=== PATIENT | male | born 1970 | race Caucasian/White ===

== ENCOUNTER → 2019-05-08 08:13 | Outpatient (CLI) | payer OTHER, SELFPAY ==
[2019-05-08 10:29] LABS: Cholesterol 196 mg/dL (200); High Density Lipoprotein 44 mg/dL; Triglycerides 131 mg/dL; Very Low Density Lipoprotein 26 mg/dL (5-40)
[2019-05-08 10:35] LABS: Hemoglobin A1c 5.4 % (4.2-6.3)
== END ==
PROVIDERS: Family Provider Family Medicine; PCP Family Medicine; Referring Provider Family Medicine; Visit Provider Family Medicine
DX: Z00.00 Encounter for general adult medical examination without abnormal findings (principal)
CPT/HCPCS: 36415; 80061; 83036

== ENCOUNTER → 2021-06-10 17:14 | Outpatient (CLI) | payer OTHER, SELFPAY ==
--- NOTE | 2021-06-10 17:18 | RAD_ITS ---
STUDY: X-RAY - RIGHT WRIST REASON FOR EXAM: Male, 50 years old. Pain in right wrist laterally into thumb. No known injury. TECHNIQUE: 3 view(s) of the wrist were obtained. COMPARISON: None. FINDINGS: A small corticated ossicle is present on the ulnar side of the radial articular surface which could be related to old trauma or a developmental apophysis. No demonstrated acute fracture. Normal visualized distal radius and ulna. Normal radiocarpal articulation. Normal distal radioulnar articulation. Normal carpal bones. Normal carpal articulations. Normal carpometacarpal articulation of the thumb. Normal second through fifth carpometacarpal articulations. Normal visualized metacarpal bones. The soft tissue structures are unremarkable. RAD/Wrist min 3 Views IMPRESSION: 1. A small corticated ossicle is present on the ulnar side of the radial articular surface which could be related to old trauma or a developmental apophysis. No demonstrated acute fracture Electronically Signed: Mele Cordova MD at 21:53 EST , Service support ,
== END ==
PROVIDERS: PCP Family Medicine; Referring Provider Family Medicine; Visit Provider Family Medicine
DX: M25.539 Pain in unspecified wrist (principal)
CPT/HCPCS: 73110

== ENCOUNTER → 2022-07-15 | Outpatient (CLI) | payer OTHER, SELFPAY ==
[2022-07-15 11:07] LABS: Anion Gap 8 (5-15); BUN 20 mg/dL (7-18); BUN/Creat Ratio 19.6 RATIO (10-20); Chloride 107 mmol/L (98-107); Cholesterol 227 mg/dL (200); Creatinine, Serum 1.02 mg/dL (0.70-1.30); EST Glomerular Filtration Rate 82 mL/min (>60); Est Glom Filt Rate - Afr Amer 99 mL/min (>60); Glucose 105 mg/dL (74-106); High Density Lipoprotein 42 mg/dL; PSA,Total - Annual Screen 0.87 ng/mL (0.00-4.00); Potassium 4.5 mmol/L (3.5-5.1); Sodium Level 139 mmol/L (136-145); Triglycerides 127 mg/dL; Very Low Density Lipoprotein 25 mg/dL (5-40)
== END | disposition home or self-care (01) ==
LOC: MFPLAB 08:32
PROVIDERS: PCP Family Medicine; Visit Provider Family Medicine
DX: E78.5 Hyperlipidemia, unspecified (principal); R73.01 Impaired fasting glucose; R53.83 Other fatigue; Z12.5 Encounter for screening for malignant neoplasm of prostate
CPT/HCPCS: 36415; 80048; 80061; 84153; 84403; G0103

== ENCOUNTER → 2023-05-18 | Outpatient (CLI) | payer OTHER, SELFPAY ==
[2023-05-18 12:48] LABS: Uric Acid 8.8 mg/dL (3.5-7.2)
[2023-05-18 13:12] LABS: Hemoglobin A1c 5.7 % (3.8-5.6)
[2023-05-23 14:07] LABS: Testosterone, % Free 3.36 % (1.50-4.20); Testosterone, Free 6.05 ng/dL (5.00-21.00); Testosterone, Total 180 ng/dL (264-916)
== END | disposition home or self-care (01) ==
LOC: MFPLAB 09:40
PROVIDERS: PCP Family Medicine; Visit Provider Family Medicine
DX: R79.89 Other specified abnormal findings of blood chemistry (principal); R73.01 Impaired fasting glucose; M10.9 Gout, unspecified
CPT/HCPCS: 36415; 83036; 84402; 84403; 84550

== ENCOUNTER → 2023-06-17 | Outpatient (CLI) | payer OTHER, SELFPAY ==
[2023-06-17 10:28] LABS: Uric Acid 7.3 mg/dL (3.5-7.2)
== END | disposition home or self-care (01) ==
LOC: MFPLAB 09:03
PROVIDERS: PCP Family Medicine; Visit Provider Family Medicine
DX: R79.89 Other specified abnormal findings of blood chemistry (principal); M10.9 Gout, unspecified
CPT/HCPCS: 36415; 84403; 84550

== ENCOUNTER → 2023-07-06 | Outpatient (CLI) | payer OTHER, SELFPAY ==
--- OUTSIDE RECORDS SUMMARY | 2023-07-06 12:01 | XMS RPT_ITS | CCD ---
Author Name Unknown Address [id number] [place] [address] Organization [facility] Results Test Name Value Interpretation Reference Range Facil ity Vital Signs Date Time Vital Sign Value Performing Clinician Facchantelle lity 08-17-2021 09:49-0500 Diastolic Blood Pressure NBP [address] DANIELLE MERCADO MD [facility] 08-17-2021 09:49-0500 Heart rate 62 /min DR DANIELLE MERCADO MD [facility] 08-17-2021 09:49-0500 Systolic Blood Pressure NBP [address] DANIELLE MERCADO MD [facility] 08-17-2021 09:40-0500 Diastolic Blood Pressure NBP [address] DANIELLE MERCADO MD [facility] 08-17-2021 09:40-0500 Heart rate 69 /min DR DANIELLE MERCADO MD [facility] 08-17-2021 09:40-0500 Systolic Blood Pressure NBP [address] DANIELLE MERCADO MD [facility] 08-17-2021 09:33-0500 Diastolic Blood Pressure NBP [address] DANIELLE MERCADO MD [facility] 08-17-2021 09:33-0500 Heart rate 67 /min DR DANIELLE MERCADO MD [facility] 08-17-2021 09:33-0500 Systolic Blood Pressure NBP [address] DANIELLE MERCADO MD [facility] 08-17-2021 09:29-0500 Body temperature 96.62 [degF] DR DANIELLE MERCADO MD [facility] 08-17-2021 09:25-0500 Respiratory rate 17 /min DR DANIELLE MERCADO MD [facility] 08-17-2021 09:20-0500 Respiratory rate 18 /min DR DANIELLE MERCADO MD [facility] 08-17-2021 09:15-0500 Respiratory rate 18 /min DR DANIELLE MERCADO MD [facility] 08-17-2021 08:54-0500 Body height 175.[address] DANIELLE MERCADO MD [facility] 08-17-2021 08:54-0500 Body temperature 98.06 [degF] DR DANIELLE MERCADO MD [facility] 08-17-2021 08:54-0500 Body weight 131.[address] DANIELLE MERCADO MD [facility] 08-17-2021 08:54-0500 diastolic 88 mm[Hg] DR DANIELLE MERCADO MD [facility] 08-17-2021 08:54-0500 Heart rate 65 /min DR DANIELLE MERCADO MD [facility] 08-17-2021 08:54-0500 systolic 137 mm[Hg] DR DANIELLE MERCADO MD [facility] Encounters Encounter Date Encounter Type Care Provider Facility Start: 08-17-2021 End: 08-17-[address] DANIELLE MERCADO MD [facility] Procedures Date Procedure Procedure Detail Performing Clinician Arthroscopy of shoulder DR Kamryn MERCADO MD Colonoscopy DR DANIELLE BAEZ MD Social History Date Type Detail Facility Start: 08-17-2021 Never smoked t obacco (finding) [facility] Sex Assigned At Male [facility] Hospital Discharge instructions 08-17-2021 Note Date & Type Note Facility 08-17-2021 Hospital Discharg e instructions Patient Education 08/17/2021 09:39:17 Colon Biopsy, Care After Colon Biopsy, Care After This sheet gives you information about how to care for yourself after your procedure. Your health care provider may also give you more specific instructions. If you have problems or questions, contact your health care provider. What can I expect after the procedure? After the procedure, it is common to have: A small amount of blood in your stool for 24 hours after the procedure. Some gas. Mild cramping or bloating in your abdomen. Follow these instructions at home: General instructions For the first 24 hours after the procedure: ?Do not drive or use machinery. ?Do not sign important documents. ?Do not drink alcohol. ?Do your regular daily activities at a slower pace than normal. ?Eat soft, xixp-tt-whxinb foods. ?Rest often. Take brbn-rxo-xgdhchj or prescription medicines only as told by your health care provider. Keep all follow-up visits as told by your health care provider. This is important. Relieving cramping and bloating Try walking around when you have cramps or feel bloated. Put heat on your abdomen as told by your health care provider. Use a heat source that your health care provider recommends, such as a moist heat pack or a heating pad. ?Place a towel between your skin and the heat source. ?Leave the heat on for 20 30 minutes. ?Remove the heat if your skin turns bright red. This is especially important if you are unable to feel pain, heat, or cold. You may have a greater risk of getting burned. Eating and drinking Drink enough fluid to keep your urine pale yellow. Return to your normal diet as instructed by your health care provider. Avoid heavy or fried foods that are hard to digest. Avoid drinking alcohol for as long as told by your health care provider. Contact a health care provider if: You have blood in your stool 2 3 days after the procedure. Get help right away if: You have more than a small spotting of blood in your stool. You pass large blood clots in your stool. Your abdomen is swollen. You have nausea or vomiting. You have a fever. You have increasing abdominal pain that is not relieved with medicine. Summary After the procedure, it is common to have mild cramping and bloating in the abdomen. Do not drive for 24 hours after the procedure. Try walking around when you have cramps or feel bloated. This information is not intended to replace advice given to you by your health care provider. Make sure you discuss any questions you have with your health care provider. Document Released: 11/22/2017 Document Revised: 05/26/2018 Document Reviewed: 11/22/2017 [employer] Patient Education 2020 [employer] Credit Card To Get Approved For. 08/17/2021 09:39:09 Colon Polyps Colon Polyps Polyps are tissue growths inside the body. Polyps can grow in many places, including the large intestine (colon). A polyp may be a round bump or a mushroom-shaped growth. You could have one polyp or several. Most colon polyps are noncancerous (benign). However, some colon polyps can become cancerous over time. Finding and removing the polyps early can help prevent this. What are the causes? The exact cause of colon polyps is not known. What increases the risk? You are more likely to develop this condition if you: Have a family history of colon cancer or colon polyps. Are older than 50 or older than 45 if you are . Have inflammatory bowel disease, such as ulcerative colitis or Crohn's disease. Have certain hereditary conditions, such as: ?Familial adenomatous polyposis. ?Conway syndrome. ?Turcot syndrome. ?Peutz Jeghers syndrome. Are overweight. Smoke cigarettes. Do not get enough exercise. Drink too much alcohol. Eat a diet that is high in fat and red meat and low in fiber. Had childhood cancer that was treated with abdominal radiation. What are the signs or symptoms? Most polyps do not cause symptoms. If you have symptoms, they may include: Blood coming from your rectum when having a bowel movement. Blood in your stool. The stool may look dark red or black. Abdominal pain. A change in bowel habits, such as constipation or diarrhea. How is this diagnosed? This condition is diagnosed with a colonoscopy. This is a procedure in which a lighted, flexible scope is inserted into the anus and then passed into the colon to examine the area. Polyps are sometimes found when a colonoscopy is done as part of routine cancer screening tests. How is this treated? Treatment for this condition involves removing any polyps that are found. Most polyps can be removed during a colonoscopy. Those polyps will then be tested for cancer. Additional treatment may be needed depending on the results of testing. Follow these instructions at home: Lifestyle Maintain a healthy weight, or lose weight if recommended by your health care provider. Exercise every day or as told by your health care provider. Do not use any products that contain nicotine or tobacco, such as cigarettes and e-cigarettes. If you need help quitting, ask your health care provider. If you drink alcohol, limit how much you have: ?0 1 drink a day for women. ? 0 2 drinks a day for men. Be aware of how much alcohol is in your drink. In the [place] one drink equals one 12 oz bottle of beer (355 mL), one 5 oz glass of wine (148 mL), or one 1 oz shot of hard liquor (44 mL). Eating and drinking Eat foods that are high in fiber, such as fruits, vegetables, and whole grains. Eat foods that are high in calcium and vitamin D, such as milk, cheese, yogurt, eggs, liver, fish, and broccoli. Limit foods that are high in fat, such as fried foods and desserts. Limit the amount of red meat and processed meat you eat, such as hot dogs, sausage, flores, and lunch meats. General instructions Keep all follow-up visits as told by your health care provider. This is important. ?This includes having regularly scheduled colonoscopies. ?Talk to your health care provider about when you need a colonoscopy. Contact a health care provider if: You have new or worsening bleeding during a bowel movement. You have new or increased blood in your stool. You have a change in bowel habits. You lose weight for no known reason. Summary Polyps are tissue growths inside the body. Polyps can grow in many places, including the colon. Most colon polyps are noncancerous (benign), but some can become cancerous over time. This condition is diagnosed with a colonoscopy. Treatment for this condition involves removing any polyps that are found. Most polyps can be removed during a colonoscopy. This information is not intended to replace advice given to you by your health care provider. Make sure you discuss any questions you have with your health care provider. Document Released: 03/09/2005 Document Revised: 09/28/2018 Document Reviewed: 09/28/2018 [employer] Patient Education 2020 Easiest Credit Card To Get Approved For. 08/17/2021 09:39:01 Monitored Anesthesia Care, Care After Monitored Anesthesia Care, Care After These instructions provide you with information about caring for yourself after your procedure. Your health care provider may also give you more specific instructions. Your treatment has been planned according to current medical practices, but problems sometimes occur. Call your health care provider if you have any problems or questions after your procedure. What can I expect after the procedure? After your procedure, you may: Feel sleepy for several hours. Feel clumsy and have poor balance for several hours. Feel forgetful about what happened after the procedure. Have poor judgment for several hours. Feel nauseous or vomit. Have a sore throat if you had a breathing tube during the procedure. Follow these instructions at home: For at least 24 hours after the procedure: Have a responsible adult stay with you. It is important to have someone help care for you until you are awake and alert. Rest as needed. Do not: ?Participate in activities in which you could fall or become injured. ?Drive. ?Use heavy machinery. ?Drink alcohol. ?Take sleeping pills or medicines that cause drowsiness. ?Make important decisions or sign legal documents. ?Take care of children on your own. Eating and drinking Follow the diet that is recommended by your health care provider. If you vomit, drink water, juice, or soup when you can drink without vomiting. Make sure you have little or no nausea before eating solid foods. General instructions Take wcbj-ade-zzjlxkf and prescription medicines only as told by your health care provider. If you have sleep apnea, surgery and certain medicines can increase your risk for breathing problems. Follow instructions from your health care provider about wearing your sleep device: ?Anytime you are sleeping, including during daytime naps. ?While taking prescription pain medicines, sleeping medicines, or medicines that make you drowsy. If you smoke, do not smoke without supervision. Keep all follow-up visits as told by your health care provider. This is important. Contact a health care provider if: You keep feeling nauseous or you keep vomiting. You feel light-headed. You develop a rash. You have a fever. Get help right away if: You have trouble breathing. Summary For several hours after your procedure, you may feel sleepy and have poor judgment. Have a responsible adult stay with you for at least 24 hours or until you are awake and alert. This information is not intended to replace advice given to you by your health care provider. Make sure you discuss any questions you have with your health care provider. Document Released: 10/03/2016 Document Revised: 09/11/2018 Document Reviewed: 10/03/2016 [employer] Patient Education 2020 Easiest Credit Card To Get Approved For. 08/17/2021 09:38:54 Colonoscopy, Adult, Care After, Cwyg-fr-Urci Colonoscopy, Adult, Care After This sheet gives you information about how to care for yourself after your procedure. Your doctor may also give you more specific instructions. If you have problems or questions, call your doctor. What can I expect after the procedure? After the procedure, it is common to have: A small amount of blood in your poop for 24 hours. Some gas. Mild cramping or bloating in your belly. Follow these instructions at home: General instructions For the first 24 hours after the procedure: ?Do not drive or use machinery. ?Do not sign important documents. ?Do not drink alcohol. ?Do your daily activities more slowly than normal. ?Eat foods that are soft and easy to digest. Take qfal-iqw-zbjuqpe or prescription medicines only as told by your doctor. To help cramping and bloating: Try walking around. Put heat on your belly (abdomen) as told by your doctor. Use a heat source that your doctor recommends, such as a moist heat pack or a heating pad. ?Put a towel between your skin and the heat source. ?Leave the heat on for 20 30 minutes. ?Remove the heat if your skin turns bright red. This is especially important if you cannot feel pain, heat, or cold. You can get burned. Eating and drinking Drink enough fluid to keep your pee (urine) clear or pale yellow. Return to your normal diet as told by your doctor. Avoid heavy or fried foods that are hard to digest. Avoid drinking alcohol for as long as told by your doctor. Contact a doctor if: You have blood in your poop (stool) 2 3 days after the procedure. Get help right away if: You have more than a small amount of blood in your poop. You see large clumps of tissue (blood clots) in your poop. Your belly is swollen. You feel sick to your stomach (nauseous). You throw up (vomit). You have a fever. You have belly pain that gets worse, and medicine does not help your pain. Summary After the procedure, it is common to have a small amount of blood in your poop. You may also have mild cramping and bloating in your belly. For the first 24 hours after the procedure, do not drive or use machinery, do not sign important documents, and do not drink alcohol. Get help right away if you have a lot of blood in your poop, feel sick to your stomach, have a fever, or have more belly pain. This information is not intended to replace advice given to you by your health care provider. Make sure you discuss any questions you have with your health care provider. Document Released: 07/16/2011 Document Revised: 04/13/2018 Document Reviewed: 03/07/2017 [employer] Patient Education 2019 [email or web address] Follow Up Care 07/21/2021 16:25:17 With:DANIELLE MERCADO MD Address: [phone] When: Unknown Comments:SPECIMENS WERE SENT TO THE LAB. YOU WILL GET THESE RESULTS IN 7-10 DAYS. HE WILL CALL YOU OR YOU WILL GET A LETTER IN THE MAIL WITH THE RESULTS. CALL DR MERCADO'S OFFICE WITH ANY QUESTIONS. GO TO THE EMERGENCY ROOM WITH ANY URGENT MATTERS. [facility] Evaluation + Plan note Note Date & Type Note Facility Evaluation + Plan note No data available for this section [facility] Summary Purpose Family History No Family History Records Found Advance Directives No Advanced Directives Records Found Additional Source Comments (unrecognized sect ion and content) No Status Records Found INFORMATION SOURCE (unrecogn ized section and content) FOR RECORDS PERTAINING TO PATIENTS WHO ARE OR HAVE BEEN ENROLLED IN A CHEMICAL DEPENDENCY/SUBSTANCEABUSE PROGRAM, SOME INFORMATION MAY BE OMITTED. This clinical summary was aggregated from multiple sources. Caution should be exercised in using it in the provision of clinical care. This summary normalizes information from multiple sources, and as a consequence, information in this document may materially change the coding, format and clinical context of patient data. In addition, data may be omitted in some cases. CLINICAL DECISIONS SHOULD BE BASED ON THE PRIMARY CLINICAL RECORDS. [employer] provides no warranty or guarantee of the accuracy or completeness of information in this document.
[2023-07-06 15:36] LABS: Absolute Lymphocyte Count 1.95 X10^3/uL (0.83-4.51); Absolute Neutrophil Count 5.9 X10^3/uL (2.0-7.7); Basophil# 0.07 X10^3/uL; Basophil% 0.8 % (0-1); Eosinophil# 0.13 X10^3/uL; Eosinophils% 1.5 % (0-5); Hematocrit 50.4 % (40-54); Hemoglobin 15.6 g/dL (13.0-16.5); Lymphocyte # 1.95 X10^3/ul (0.83-4.51); Mean Corpuscular Hgb 28.2 pg (27.0-32.0); Mean Platelet Vol. 10.2 fl (6.2-12.0); Monocyte# 0.77 X10^3/uL; Monocyte% 8.7 % (0-10); NRBC Flagged by Analyzer 0 % (0-5); Neutrophil # 5.88 X10^3/uL (2.7-7.7); Neutrophil % 66.4 % (47-70); Platelet Count 359 K/mm3 (150-450); RBC Distribution Width SD 43.1 fl (35.1-43.9); Red Blood Count 5.54 M/mm3 (4.6-6.2); White Blood Count 8.9 K/mm3 (4.4-11.0)
[2023-07-06 16:02] LABS: Anion Gap 6 (5-15); BUN 12 mg/dL (7-18); BUN/Creat Ratio 10.7 RATIO (10-20); Chloride 108 mmol/L (98-107); Creatinine, Serum 1.12 mg/dL (0.70-1.30); EST Glomerular Filtration Rate 73 mL/min (>60); Est Glom Filt Rate - Afr Amer 89 mL/min (>60); Glucose 94 mg/dL (74-106); Potassium 4.3 mmol/L (3.5-5.1); Sodium Level 139 mmol/L (136-145); Uric Acid 4.7 mg/dL (3.5-7.2)
== END | disposition home or self-care (01) ==
LOC: MFPLAB 11:32
PROVIDERS: Family Medicine; PCP Family Medicine; Visit Provider Family Medicine
DX: M10.9 Gout, unspecified (principal)
CPT/HCPCS: 36415; 80048; 84550; 85025; 86140

== ENCOUNTER → 2023-07-11 | Outpatient (CLI) | payer OTHER, SELFPAY ==
--- NOTE | 2023-07-11 12:47 | RAD_ITS ---
STUDY: X-RAY - RIGHT WRIST REASON FOR EXAM: Male, 53 years old. pain, loss motion. no injury TECHNIQUE: 3 view(s) of the wrist were obtained. COMPARISON: None. FINDINGS: Normal visualized distal radius and ulna. Normal radiocarpal articulation. Normal distal radioulnar articulation. Normal carpal bones. Normal carpal articulations. Normal carpometacarpal articulation of the thumb. Normal second through fifth carpometacarpal articulations. Normal visualized metacarpal bones. The soft tissue structures are unremarkable. RAD/Wrist min 3 Views IMPRESSION: Normal x-ray examination of the wrist. Electronically Signed: Alfonso Vargas MD at 17:55 EST ,
--- NOTE | 2023-07-11 12:47 | RAD_ITS ---
STUDY: X-RAY LEFT FOOT, GREAT TOE REASON FOR EXAM: Male, 53 years old. pain, swelling TECHNIQUE: 3 view(s) of the toe were obtained. COMPARISON: None. FINDINGS: Normal visualized metatarsus. Normal metatarsophalangeal (M.T.P) joint. Normal interphalangeal joints. Normal phalanges. Narrowed interphalangeal joints with mild spurring. The soft tissue structures are unremarkable. RAD/Toe(s) Min 2 Views IMPRESSION: Degenerative changes of the DIP joint of the great toe. No acute fracture or other significant bony pathology. Electronically Signed: Alfonso Vargas MD at 17:57 EST ,
== END | disposition home or self-care (01) ==
LOC: MTRAD 12:44
PROVIDERS: PCP Family Medicine; Referring Provider Family Medicine; Visit Provider Family Medicine
DX: M25.531 Pain in right wrist (principal); M79.675 Pain in left toe(s)
CPT/HCPCS: 73110; 73660

== ENCOUNTER → 2023-07-13 | Outpatient (CLI) | payer OTHER, SELFPAY ==
--- OUTSIDE RECORDS SUMMARY | 2023-07-13 15:40 | XMS RPT_ITS | CCD ---
Author Name Unknown Address [address] [place] [address] Organization [facility] Results Test Name Value Interpretation Reference Range Facil ity Vital Signs Date Time Vital Sign Value Performing Clinician Facchantelle lity 08-17-2021 09:49-0500 Diastolic Blood Pressure NBP [address] DANIELLE MERCADO MD [facility] 08-17-2021 09:49-0500 Heart rate 62 /min DR DANIELLE MERCADO MD [facility] 08-17-2021 09:49-0500 Systolic Blood Pressure NBP [address] DANIELLE MERCADO MD [facility] 08-17-2021 09:40-0500 Diastolic Blood Pressure NBP [address] DANIELLE MERCADO MD [facility] 08-17-2021 09:40-0500 Heart rate 69 /min DR DANIELLE MERCADO MD [facility] 08-17-2021 09:40-0500 Systolic Blood Pressure NBP [address] DANIELLE MERCADO MD [facility] 08-17-2021 09:33-0500 Diastolic Blood Pressure NBP [address] DANIELLE MERCADO MD [facility] 08-17-2021 09:33-0500 Heart rate 67 /min DR DANIELLE MERCADO MD [facility] 08-17-2021 09:33-0500 Systolic Blood Pressure NBP [address] DANIELLE MERCADO MD [facility] 08-17-2021 09:29-0500 Body temperature 96.62 [degF] DR DANIELLE MERCADO MD [facility] 08-17-2021 09:25-0500 Respiratory rate 17 /min DR DANIELLE MERCADO MD [facility] 08-17-2021 09:20-0500 Respiratory rate 18 /min DR DANIELLE MERCADO MD [facility] 08-17-2021 09:15-0500 Respiratory rate 18 /min DR DANIELLE MERCADO MD [facility] 08-17-2021 08:54-0500 Body height 175.[address] DANIELLE MERCADO MD [facility] 08-17-2021 08:54-0500 Body temperature 98.06 [degF] DR DANIELLE MERCADO MD [facility] 08-17-2021 08:54-0500 Body weight 131.[address] DANIELLE MERCADO MD [facility] 08-17-2021 08:54-0500 diastolic 88 mm[Hg] DR DANIELLE MERCADO MD [facility] 08-17-2021 08:54-0500 Heart rate 65 /min DR DANIELLE MERCADO MD [facility] 08-17-2021 08:54-0500 systolic 137 mm[Hg] DR DANIELLE MERCADO MD [facility] Encounters Encounter Date Encounter Type Care Provider Facility Start: 08-17-2021 End: 08-17-[address] DANIELLE MERCADO MD [facility] Procedures Date Procedure Procedure Detail Performing Clinician Arthroscopy of shoulder DR Kamryn MERCADO MD Colonoscopy DR DANIELLE BAEZ MD Social History Date Type Detail Facility Start: 08-17-2021 Never smoked t obacco (finding) [facility] Sex Assigned At Male [facility] Discharge instructions 08-17-2021 Note Date & [...] a slower pace than normal. ?Eat soft, iuoj-oq-ztqkwc foods. ?Rest often. Take figs-dgn-pnroknl or prescription medicines only as told by [...] 11/22/2017 Document Revised: 05/26/2018 Document Reviewed: 11/22/2017 [employer] Patient Education 2020 [email or web address] 08/17/2021 09:39:09 Colon Polyps Colon Polyps Polyps [...] 03/09/2005 Document Revised: 09/28/2018 Document Reviewed: 09/28/2018 [employer] Patient Education 2020 [email or web address]. 08/17/2021 09:39:01 Monitored Anesthesia Care, Care After [...] before eating solid foods. General instructions Take nvvc-vni-jnhkojm and prescription medicines only as told by [...] 10/03/2016 Document Revised: 09/11/2018 Document Reviewed: 10/03/2016 [employer] Patient Education 2020 [email or web address]. 08/17/2021 09:38:54 Colonoscopy, Adult, Care After, Mcto-il-Xrav Colonoscopy, Adult, Care After This sheet gives [...] are soft and easy to digest. Take oevc-ckb-dsoehtr or prescription medicines only as told by [...] 07/16/2011 Document Revised: 04/13/2018 Document Reviewed: 03/07/2017 [employer] Patient Education 2019 [employer] Follow Up Care 07/21/2021 16:25:17 With:DANIELLE MERCADO MD Address: [phone] When: Unknown Comments:SPECIMENS WERE SENT TO THE LAB. YOU WILL GET THESE RESULTS IN 7-10 DAYS. HE WILL CALL YOU OR YOU WILL GET A LETTER IN THE MAIL WITH THE RESULTS. CALL DR MERCADO'S OFFICE WITH ANY QUESTIONS. GO TO THE EMERGENCY ROOM WITH ANY URGENT MATTERS. [facility] Evaluation + Plan note Note Date & Type Note Facility Evaluation + Plan note No data available for this section [facility] Summary Purpose Family History No Family History [...] BE BASED ON THE PRIMARY CLINICAL RECORDS. [employer] provides no warranty or guarantee of the accuracy or completeness of information in this document.
[2023-07-13 18:04] LABS: Erythrocyte Sedimentation Rate 23 mm/hr (0-20)
== END | disposition home or self-care (01) ==
LOC: MFPLAB 15:17
PROVIDERS: PCP Family Medicine; Visit Provider Family Medicine
DX: M10.9 Gout, unspecified (principal)
CPT/HCPCS: 36415; 85652; 86140

== ENCOUNTER → 2023-11-07 | Outpatient (CLI) | payer OTHER, SELFPAY ==
[2023-11-07 18:18] LABS: CRP 3.14 mg/L (0.0-3.0); Uric Acid 7.5 mg/dL (3.5-7.2)
== END | disposition home or self-care (01) ==
LOC: MFPLAB 15:33
PROVIDERS: PCP Family Medicine; Visit Provider Family Medicine
DX: M10.9 Gout, unspecified (principal); R79.89 Other specified abnormal findings of blood chemistry
CPT/HCPCS: 36415; 84403; 84550; 86140

== ENCOUNTER → 2023-12-19 | Outpatient (CLI) | payer OTHER, SELFPAY | END | disposition home or self-care (01) | LOC: MFPLAB 14:56 | PROVIDERS: PCP Family Medicine; Visit Provider Family Medicine | DX: R79.89 Other specified abnormal findings of blood chemistry (principal) | CPT/HCPCS: 36415; 84403 ==

== ENCOUNTER → 2024-01-27 | Outpatient (CLI) | payer OTHER, SELFPAY ==
[2024-02-01 13:08] LABS: Testosterone, % Free 4.43 % (1.50-4.20); Testosterone, Free 18.87 ng/dL (5.00-21.00); Testosterone, Total 426 ng/dL (264-916)
== END | disposition home or self-care (01) ==
LOC: MFPLAB 15:20
PROVIDERS: PCP Family Medicine; Visit Provider Family Medicine
DX: R79.89 Other specified abnormal findings of blood chemistry (principal)
CPT/HCPCS: 36415; 84402; 84403

== ENCOUNTER → 2024-06-06 | Outpatient (CLI) | payer OTHER, SELFPAY ==
--- NOTE | 2024-06-06 09:58 | VDLE_ITS ---
Reason For Study: Right leg pain RIGHT LEFT GSV is normal. CFV is compressible, spontaneous, phasic, CFV is compressible, spontaneous, phasic, competent, and demonstrates normal competent and demonstrates normal augmentation. augmentation. FV is compressible, spontaneous, phasic, competent and demonstrates normal augmentation. POP V is compressible, spontaneous, phasic, competent and demonstrates normal augmentation. T/P Trunk is compressible. PTV is compressible. RT PerV is compressible. Procedure This is a venous duplex using B-mode, color flow and spectral Doppler. Exam performed in department. A preliminary report was called and/or faxed to Dr. Lim. VL/Venous Duplex US, Unilateral Interpretation Summary Deep veins of the right lower extremity are patent and compressible segmentally . There is no evidence of right lower extremity deep vein thrombosis. The right great sapheno us vein appears patent and compressible segmentally. Ordering Physician: Rufino Sheldon Referring Physician: Rufino Sheldon Performed By: Ashley Silva RVT
== END | disposition home or self-care (01) ==
LOC: CVS 09:57
PROVIDERS: PCP Family Medicine; Referring Provider Family Medicine; Visit Provider Family Medicine
DX: M79.604 Pain in right leg (principal)
CPT/HCPCS: 93971

== ENCOUNTER → 2024-06-11 | Outpatient (CLI) | payer OTHER, SELFPAY ==
[2024-06-11 17:44] LABS: Hemoglobin 14.3 g/dL (13.0-16.5); Mean Corp Hgb Conc 31.8 g/dL (32-36); Mean Corpuscular Hgb 27.8 pg (27.0-32.0); Mean Corpuscular Volume 87.4 fL (80-94); Mean Platelet Vol. 9.8 fl (6.2-12.0); Platelet Count 322 K/mm3 (150-450); RBC Distribution Width CV 13.1 % (11.6-14.6); RBC Distribution Width SD 41.7 fl (35.1-43.9); Red Blood Count 5.15 M/mm3 (4.6-6.2); White Blood Count 8.9 K/mm3 (4.4-11.0)
[2024-06-11 18:49] LABS: ALB/GLOB Ratio 1.1 RATIO (0.9-2.4); AST(SGOT) 19 U/L (15-37); Alanine Aminotransfer ALT/SGPT 35 U/L (16-61); Albumin, Serum 3.8 g/dL (3.2-5.0); Alkaline Phosphatase 42 U/L (45-117); Anion Gap 6 (5-15); BUN 22 mg/dL (7-18); Calcium,Total 9.1 mg/dL (8.5-10.1); Chloride 106 mmol/L (98-107); Cholesterol 199 mg/dL (200); Creatinine, Serum 1.05 mg/dL (0.70-1.30); EST Glomerular Filtration Rate 79 mL/min (>60); Est Glom Filt Rate - Afr Amer 95 mL/min (>60); Globulin 3.5 g/dL (2.2-4.2); Glucose 91 mg/dL (74-106); High Density Lipoprotein 48 mg/dL; Potassium 3.9 mmol/L (3.5-5.1); Protein, Total 7.3 g/dL (6.4-8.2); Sodium Level 137 mmol/L (136-145); T4 Free Direct 0.96 ng/dL (0.76-1.46); Triglycerides 135 mg/dL; Very Low Density Lipoprotein 27 mg/dL (5-40)
== END | disposition home or self-care (01) ==
LOC: MFPLAB 16:29
PROVIDERS: PCP Family Medicine; Referring Provider Family Medicine; Visit Provider Family Medicine
DX: R79.89 Other specified abnormal findings of blood chemistry (principal); R73.01 Impaired fasting glucose; E04.9 Nontoxic goiter, unspecified
CPT/HCPCS: 36415; 80053; 80061; 84403; 84439; 84443; 85027

== ENCOUNTER → 2025-01-28 | Outpatient (CLI) | payer OTHER, SELFPAY ==
[2025-01-28 17:43] LABS: Hematocrit 43.8 % (40-54); Hemoglobin 14.5 g/dL (13.0-16.5); Mean Corp Hgb Conc 33.1 g/dL (32-36); Mean Corpuscular Volume 88.7 fL (80-94); Mean Platelet Vol. 10.3 fl (6.2-12.0); Platelet Count 300 K/mm3 (150-450); RBC Distribution Width CV 12.7 % (11.6-14.6); RBC Distribution Width SD 41.1 fl (35.1-43.9); Red Blood Count 4.94 M/mm3 (4.6-6.2); White Blood Count 9.0 K/mm3 (4.4-11.0)
[2025-01-28 18:14] LABS: AST(SGOT) 21 U/L (<=37); Alanine Aminotransfer ALT/SGPT 28 U/L (<=46); Albumin, Serum 4.5 g/dL (3.5-5.0); Alkaline Phosphatase 39 U/L (40-129); Anion Gap 12 (5-15); BUN 14 mg/dL (4-19); BUN/Creat Ratio 13.8 RATIO (10-20); Calcium,Total 8.9 mg/dL (7.6-11.0); Carbon Dioxide 22.9 mmol/L (21.0-32.0); Chloride 104 mmol/L (98-108); Globulin 2.3 g/dL (2.2-4.2); Glucose 92 mg/dL (70-99); Potassium 4.1 mmol/L (3.3-5.1)
--- OUTSIDE RECORDS SUMMARY | 2025-01-28 22:57 | XMS RPT_ITS | CCD ---
Author Organization [facility] Care Team Providers Care Shank Skinner Name Role Phone Rufino Sheldon Primary Care Unavailable Monalisa, Rufino Attending Unavailable Monalisa, Chanceer Referring Unavailable Monalisa, Rufino Primary Care Unavailable Assessment, Health Risk Attending Unavaila ble Rufino Sheldon Primary Care Unavailable Monalisa, Chanceer Attending Unavailable Monalisa, Christopher Primary Care Unavailable Monalisa, Christopher Attending Unavailable Monalisa, Christopher Primary Care Unavailable Jean Carlos Moore Attending Unavailable Monalisa, Rufino Referring Unavailable Monalisa, Rufino Primary Care Unavailable Monalisa, Rufino Attending Unavailable Monalisa, Christopher Referring Unavailable Monalisa, Christopher Primary Care Unavailable Monalisa, Chanceer Attending Unavailable Unavailable Primary Care Provider Unavailabl e BEAN ROSAS Attending Unavailable ALISON, BEAN Attending Unavailable ALISON, BEAN Attending Unavailable SELF Referring Unavailable ALISON, BEAN Attending Unavailable SELF Referring Unavailable ALISON, BEAN Referring Unavailable SELF Referring Unavailable ALISON, BEAN Attending Unavailable SELF Referring Unavailable ALISON, BEAN Attending Unavailable Medications Current Medications Medication Drug Class(es) Dates Sig (Normalized) Sig (Original) colchicine 0.6 mg oral tablet (13 sources) Start: 08-27-2024 End: 02-23-2025 take 1 tablet by mouth once daily colchicine 0.6 mg tablet Take 1 tablet by mouth once daily. 30 tablet 5 08/27/2024 02/23/2025 Active enalapril maleate 5 mg oral tablet (8 sources) Angiotensin Converting Enzyme Inhibitor Start: 12-04-2024 End: 06-02-2025 take 2 tablets by mouth once daily enalapril (VASOTEC) 5 mg tablet Take 2 tablets by mouth once daily. 30 tablet 1 12/04/2024 06/02/2025 Active Start: 11-08-2024 End: 05-07-2025 take 1 tablet by mouth once daily enalapril (VASOTEC) 5 mg tablet Take 1 tablet by mouth once daily. 30 tablet 1 11/08/2024 12/04/2024 Discontinued placebo (17 sources) Start: 12-04-2024 End: 03-04-2025 take 24-859 capsules by mouth once daily INV AR882 50 MG, 75 MG, OR PLACEBO CAPSULE (IRB 24-859) Take 1 capsule by mouth once daily. For Investigational Drug Use Only, PI: Bean Rosas MD, PhD. Patient should start on December 04, 2024. 90 capsule 12/04/2024 03/04/2025 Active Start: 11-08-2024 take 24-859 capsules by mouth once daily INV AR882 50 MG, 75 MG, OR PLACEBO CAPSULE (IRB 24-859) Take 1 capsule by mouth once daily. For Investigational Drug Use Only, PI: Bean Rosas MD, PhD. Patient should start on November 08, 2024. 30 capsule 11/08/2024 Active Start: 10-04-2024 End: 11-03-2024 take 24-859 capsules by mouth once daily INV AR882 50 MG, 75 MG, OR PLACEBO CAPSULE (IRB 24-859) Take 1 capsule by mouth once daily. For Investigational Drug Use Only, PI: Bean Rosas MD, PhD. Patient should start on October 04, 2024. 30 capsule 10/04/2024 11/03/2024 Active Start: 09-06-2024 End: 09-06-2024 1 capsule, ORAL, ONCE, 1 dos e, On Parul 09/06/24 at 1330 Start: 09-06-2024 End: 09-06-2024 INV 50mg, 75mg AR882 or plac allyssa (IRB#[id number]) semaglutide, weight loss, (WEGOVY) 0.5 mg/0.5 mL pen injector (17 sources) Start: 08-16-2024 inject 2 mg by subcutaneous injection every week semaglutide, weight loss, (WEGOVY) 0.5 mg/0.5 mL pen injector Inject 2 mg subcutaneously one time a week. 08/16/2024 Active Start: 08-16-2024 inject 1 mg by subcu taneous injection every week semaglutide, weight loss, (WEGOVY) 0.5 mg/0.5 mL pen injector Inject 1 mg subcutaneously one time a week. 08/16/2024 Active 60 actuat testosterone 20.25 mg/actuat topical gel (17 sources) Androgen Start: 08-17-2024 testosterone ( ANDROGEL PUMP) 20.25 mg/1.25 gram (1.62 %) transdermal gel Apply 2 Pump as directed once daily. 08/17/2024 Active Problems Active Problems Problem Classification Problem Date Documented Da te Episodic/Chronic Gout and other crystal arthropathies (5 sources) Gout, unspecified; Translations: [Primary gout] Onset: 11-14-2023 10-04-2024 Chronic Immunizations and screening for infectious disease (20 sources) Patient encounter status; Translations: [Encounter for screening for COVID-19] 03-04-2021 Episodic Other connective tissue disease (1 source) Pain in right leg; Translations: [Pain in right leg] Onset: 07-09-2024 Episodic Other screening for suspected conditions (not mental disorders or infectious disease) (1 source) Other specified abnormal findings of blood chemistry; Translations: [Other specified abnormal findings of blood chemistry] Onset: 07-10-2024 Episodic Unclassified (2 sources) Patient encounter status 08-21-2024 Past or Other Problems Problem Classification Problem Date Documented Date Episodic/Chronic Other and unspecified benign neoplasm (17 sources) Benign neoplasm of rectum and anal canal; Translations: [Benign neoplasm of rectum] Onset: 08-31-2010 08-31-2010 Episodic Other and unspecified benign neoplasm (17 sources) Benign neoplasm of colon; Translations: [Benign neoplasm of colon, unspecified] Onset: 08-31-2010 08-31-2010 Episodic Residual codes; unclassified (17 sources) Family history of malignant neoplasm of gastrointestinal tract; Translations: [Family history of malignant neoplasm of digestive organs] Onset: 08-31-2010 08-31-2010 Episodic Skin and subcutaneous tissue infections (17 sources) Cellulitis and abscess of trunk; Translations: [Cellulitis of trunk, unspecified] Onset: 03-15-2007 Resolved: 07-27-2010 07-27-2010 Episodic Spondylosis; intervertebral disc disorders; other back problems (17 sources) Low back pain; Translations: [Lumbago] Onset: 01-21-2011 01-21-2011 Episodic Results Test Name Value Interpretation Reference Range Facility ARIANA 01-17-2025 [facility] ([id number]) 1970 M Date Time Provider Department 01/17/25 3:00 PM NURSE [facility] During your visit today, we recorded the following information about you: Temperature Pulse Respiration Blood pressure 97.7 degrees 71/minute 16/minute 153/90 Dayanna Valerio RN 01/17/2025 3:31 PM Signed IRB# [id number] Study short name: Arthrosi Gout Study title: A Phase 3 Randomized, Double-blind, Multi-center, Placebo-controlled Study to Evaluate the Efficacy and Safety of AR882 in Participants with Gout (Protocol version 4.0) [id number] PI: Bean Rosas MD Research Nurse/Coordinator: Moises Reyna Visit #: Month 4.5 Subject ID [id number] Lab tubes coming from: Study Team for Core Lab Time Point Procedures Comments/Signature Prior to Visit . Baseline Subject continues to consent. Height: 175.1 cm Weight: 128.1 kg Vital Signs collected Time: 1504 Clean catch urine sample obtained Time: 1500 UA given to Core lab Signature: Dayanna Valerio RN Post Dose Blood Draw Time: 1507 Butterfly used in left antecubital area. Blood drawn with vacutainer and syringe as needed and labs drawn per protocol. Butterfly removed after blood draw and site secured with sterile gauze. Patient tolerated procedure well. Signature: Dayanna Valerio RN Discharge D/C pt. to home Signature: Dayanna Valerio RN Allergies As of Date: 01/17/2025 (No Known Allergies) Date Reviewed: 11/08/2024 Reviewed by: Gayle Henry OCCA - Fully Assessed Reason for Visit: Research [[id number]] Cmt: IRB#[id number] Primary Visit Diagnosis:Examinatio n of participant in clinical trial [Z00.6] Prescriptions as of 01/17/2025 - enalapril (VASOTEC) 5 mg tablet Take 2 tablets by mouth once daily. - INV AR882 50 MG, 75 MG, OR PLACEBO CAPSULE (IRB 24-859) Take 1 capsule by mouth once daily. For Investigational Drug Use Only, PI: Bean Rosas MD, PhD. Patient should start on December 04, 2024. - INV AR882 50 MG, 75 MG, OR PLACEBO CAPSULE (IRB 24-859) Take 1 capsule by mouth once daily. For Investigational Drug Use Only, PI: Bean Rosas MD, PhD. Patient should start on November 08, 2024. - colchicine 0.6 mg tablet Take 1 tablet by mouth once daily. - testosterone (ANDROGEL PUMP) 20.25 mg/1.25 gram (1.62 %) transdermal gel Apply 2 Pump as directed once daily. - semaglutide, weight loss, (WEGOVY) 0.5 mg/0.5 mL pen injector Inject 2 mg subcutaneously one time a week. Problem List As Of Date 01/17/2025 Noted Resolved Cellulitis and abscess of trunk [L03.319, L02.2*03/15/2007 07/27/2010 MRSA (methicillin resistant staph aureus) cultu* Family history of malignant neoplasm of gastroi*08/31/2010 Benign neoplasm of rectum and anal canal [D12.8*08/31/2010 Benign neoplasm of colon [D12.6] 08/31/2010 Lumbago [M54.50] 01/21/2011 Encounter Status:Closed by DAYANNA VALERIO on 01/17/25 [facility]OVon 01-17-2025 [facility] Office Visit ([facility]) MARVIN MACHADO ([id number]) 1970 M Date Time Provider Department 01/17/25 3:30 PM BEAN ROSAS During your visit today, we recorded the following information about you: Temperature Pulse Respiration Blood pressure 98.1 degrees 64/minute 16/minute 148/89 Weight Height 127.9 kg 1.738 m Bean Rosas MD, PhD 01/17/2025 4:13 PM Addendum Clinical Research Study - Rheumatic and Immunologic Diseases IRB#[id number] Protocol Title: A Phase 3 Randomized, Double-blind, Multi-center, Placebo-controlled Study to Evaluate the Efficacy and Safety of AR882 in Participants with Gout PI: Dr. Bean Rosas MD, PhD no flares no GI issues still taking colchicine as there was an uncertain flare from knee pain and he wanted to take colchicine longer to be certain no tender/sw joints possible tophus left DIP area of the 1st toe non tender (recognized from the outset) MONTH 4.5: Vitals: Height: 173.8 cm Weight: 282 lbs BMI: 42.35 Systolic BP:148 Diastolic BP: 89 Pulse Rate:64 Respiratory Rate:16 Body Temperature: 36.7 Abbreviated Physical Exam: Cardiovascular: Normal Abnormal, description of abnormality: Abdomen: Normal Abnormal, description of abnormality: Skin: Normal Abnormal, description of abnormality: Respiratory: Normal Abnormal, description of abnormality: Impression: Will the subject continue on study drug? yes Adverse Events (with dates)? none Date of stopping colchicine: 01/18/25 (last took 01/17) HTN remains - he is not certain if his enalapril dose changed.. i advised to f/up w his primary but in meantime: check the dose of enalapril (5mg pills) that you are taking if taking 1; increase to 2 pills once a day if taking 2 - increase to 3 and let your primary doc know and you can get a rx for a larger strength pill in order to take fewer pills stop the colchicine Bean Rosas MD, PhD Bean Rosas MD, PhD 01/17/2025 4:06 PM Signed check the dose of enalapril (5mg pills) that you are taking if taking 1; increase to 2 pills once a day if taking 2 - increase to 3 and let your primary doc know and you can get a rx for a larger strength pill in order to take fewer pills stop the colchicine Allergies As of Date: 01/17/2025 (No Known Allergies) Date Reviewed: 01/17/2025 Reviewed by: Kaelyn Aldrich MA - Fully Assessed Primary Visit Diagnosis:Research study patient [Z00.6] Prescriptions as of 01/18/2025 - enalapril (VASOTEC) 5 mg tablet Take 2 tablets by mouth once daily. - INV AR882 50 MG, 75 MG, OR PLACEBO CAPSULE (IRB 24-859) Take 1 capsule by mouth once daily. For Investigational Drug Use Only, PI: Bean Rosas MD, PhD. Patient should start on December 04, 2024. - INV AR882 50 MG, 75 MG, OR PLACEBO CAPSULE (IRB 24-859) Take 1 capsule by mouth once daily. For Investigational Drug Use Only, PI: Bean Rosas MD, PhD. Patient should start on November 08, 2024. - colchicine 0.6 mg tablet Take 1 tablet by mouth once daily. - testosterone (ANDROGEL PUMP) 20.25 mg/1.25 gram (1.62 %) transdermal gel Apply 2 Pump as directed once daily. - semaglutide, weight loss, (WEGOVY) 0.5 mg/0.5 mL pen injector Inject 2 mg subcutaneously one time a week. Problem List As Of Date 01/17/2025 Noted Resolved Cellulitis and abscess of trunk [L03.319, L02.2*03/15/2007 07/27/2010 MRSA (methicillin resistant staph aureus) cultu* Family history of malignant neoplasm of gastroi*08/31/2010 Benign neoplasm of rectum and anal canal [D12.8*08/31/2010 Benign neoplasm of colon [D12.6] 08/31/2010 Lumbago [M54.50] 01/21/2011 Other instructions from your clinician: check the dose of enalapril (5mg pills) that you are taking if taking 1; increase to 2 pills once a day if taking 2 - increase to 3 and let your primary doc know and you can get a rx for a larger strength pill in order to take fewer pills stop the colchicine Encounter Status:Closed by BEAN ROSAS on 01/17/25 [facility] CNNURSEon 12-04-2024 [facility] Nurse Visit ([facility]) TRINHMARVIN W ([id number]) 1970 M Date Time Provider Department 12/04/24 3:00 PM NURSE [facility] During your visit today, we recorded the following information about you: Temperature Pulse Respiration Blood pressure 97.6 degrees 81/minute 20/minute 137/78 Elva Beasley RN 12/04/2024 3:24 PM Signed IRB# [id number] Study short name: Arthrosi Gout Study title: A Phase 3 Randomized, Double-blind, Multi-center, Placebo-controlled Study to Evaluate the Efficacy and Safety of AR882 in Participants with Gout (Protocol version 4.0) [id number] PI: Bean Rosas MD Research Nurse/Coordinator: Moises Reyna Visit #: Month 3 Subject ID [id number] Lab tubes coming from: Study Team for Core Lab Time Point Procedures Comments/Signature Prior to Visit Subject to take medication at home in the am prior to same day visit: Subject to be reminded by Coordinator. Baseline Subject continues to consent. Dose taken at home - Time: 12/04/2024 at 1130 Height: 173.8 cm Weight: 128.3 kg Vital Signs collected Time: 1509 Clean catch urine sample obtained Time: 1513 UA given to Core lab Signature: Elva Beasley RN Post Dose 3-9 hours post dose Blood Draw Time: 1520 Butterfly used in right hand. Blood drawn with vacutainer and syringe as needed and labs drawn per protocol. Butterfly removed after blood draw and site secured with sterile gauze. Patient tolerated procedure well. Signature: Elva Beasley RN Discharge D/C pt. to home Signature: Elva Beasley RN Allergies As of Date: 12/04/2024 (No Known Allergies) Date Reviewed: 11/08/2024 Reviewed by: Gayle Henry OCCA - Fully Assessed Primary Visit Diagnosis:Examinatio n of participant or control in clinical research [Z00.6] Order(s):[facility] SEND OUT TST 1 [SQMISC1] Order #: [id number] FUTURE Prescriptions as of 12/04/2024 - INV AR882 50 MG, 75 MG, OR PLACEBO CAPSULE (IRB 24-859) Take 1 capsule by mouth once daily. For Investigational Drug Use Only, PI: Bean Rosas MD, PhD. Patient should start on December 04, 2024. - enalapril (VASOTEC) 5 mg tablet Take 1 tablet by mouth once daily. - INV AR882 50 MG, 75 MG, OR PLACEBO CAPSULE (IRB 24-859) Take 1 capsule by mouth once daily. For Investigational Drug Use Only, PI: Bean Rosas MD, PhD. Patient should start on November 08, 2024. - colchicine 0.6 mg tablet Take 1 tablet by mouth once daily. - testosterone (ANDROGEL PUMP) 20.25 mg/1.25 gram (1.62 %) transdermal gel Apply 2 Pump as directed once daily. - semaglutide, weight loss, (WEGOVY) 0.5 mg/0.5 mL pen injector Inject 2 mg subcutaneously one time a week. Problem List As Of Date 12/04/2024 Noted Resolved Cellulitis and abscess of trunk [L03.319, L02.2*03/15/2007 07/27/2010 MRSA (methicillin resistant staph aureus) cultu* Family history of malignant neoplasm of gastroi*08/31/2010 Benign neoplasm of rectum and anal canal [D12.8*08/31/2010 Benign neoplasm of colon [D12.6] 08/31/2010 Lumbago [M54.50] 01/21/2011 Encounter Status:Closed by ELVA BEASLEY on 12/04/24 [facility] Nacho 12-04-2024 [facility] Office Visit ([facility]HEUM[facility]) MARVIN MACHADO ([id number]) 1970 M Date Time Provider Department 12/04/24 4:00 PM BEAN ROSAS During your visit today, we recorded the following information about you: Weight Height 128.3 kg 1.738 m Bean Rosas MD, PhD 12/04/2024 4:19 PM Addend Clinical Research Study - Rheumatic and Immunologic Diseases IRB#[id number] Protocol Title: A Phase 3 Randomized, Double-blind, Multi-center, Placebo-controlled Study to Evaluate the Efficacy and Safety of AR882 in Participants with Gout PI: Dr. Bean Rosas MD, PhD MONTH 3: Vitals: Height: 173.8 cm Weight: 128.3 kg BMI: 42.47 Systolic BP:140 Diastolic BP:96 Pulse Rate:74 Respiratory Rate:18 Body Temperature: 97.6 f Abbreviated Physical Exam: Cardiovascular:jing l Abdomen: Normal Respiratory: Normal skin normal right pre-patellar fullness despite 3 wks prednisone not tender - this started after working on his knees - never hot/red or exquisitely tender.no knee effusion lump (maybe subcut firm tophus) distal lateral left great toe ~ the same, non tender Impression: Will the subject continue on study drug? yes htn - enalapril increased roberto SE from med prepatellar pain on right, not clearly a flare (i think not) but will continue colchicine prophylaxis for 1 additional month (has been ~ 90 dys) Bean Rosas MD, PhD 30 mins advance review, office time, research forms Visit completed per protocol. PROs sent to patient, patient instructed to fill out within 3 days of the visit. Empiramed gout flare diary reviewed and encouraged continued compliance. Month 2 bottle returned ([id number]) with 4 unused pills Backup bottle was redispensed. 12/24 pills currently used out of it. Month 3 bottles not dispensed due to supply issue, company aware. These will be shipped to patients address on file once site receives shipment. Patient was instructed to use back up bottle until he receives the Month 3 supply. Vitals listed above were PI exam, Per PI patient will continue on colchicine for another month. Conmeds and AE's reviewed: Patient noted knee pain since last visit and was prescribed prednisone from PCP, patient took this from November 12-December 03 20mg No other AE noted Moises Reyna Research Coordinator Allergies As of Date: 12/04/2024 (No Known Allergies) Date Reviewed: 11/08/2024 Reviewed by: Gayle Henry OCCA - Fully Assessed Primary Visit Diagnosis:Idiopathic gout, unspecified chronicity, unspecified site [M10.00] Other Visit Diagnosis:Research study patient [Z00.6] Order(s):INV AR882 50 MG, 75 MG, OR PLACEBO CAPSULE (IRB 24-859)Take 1 capsule by mouth once daily. For Investigational Drug Use Only, PI: Bean Rosas MD, PhD. Patient should start on December 04, 2024.Disp: 90 capsuleRfl: 0 enalapril (VASOTEC) 5 mg tabletTake 2 tablets by mouth once daily.Disp: 30 tabletRfl: 1 Prescriptions as of 01/25/2025 - enalapril (VASOTEC) 5 mg tablet Take 2 tablets by mouth once daily. - INV AR882 50 MG, 75 MG, OR PLACEBO CAPSULE (IRB 24-859) Take 1 capsule by mouth once daily. For Investigational Drug Use Only, PI: Bean Rosas MD, PhD. Patient should start on December 04, 2024. - INV AR882 50 MG, 75 MG, OR PLACEBO CAPSULE (IRB 24-859) Take 1 capsule by mouth once daily. For Investigational Drug Use Only, PI: Bean Rosas MD, PhD. Patient should start on November 08, 2024. - colchicine 0.6 mg tablet Take 1 tablet by mouth once daily. - testosterone (ANDROGEL PUMP) 20.25 mg/1.25 gram (1.62 %) transdermal gel Apply 2 Pump as directed once daily. - semaglutide, weight loss, (WEGOVY) 0.5 mg/0.5 mL pen injector Inject 2 mg subcutaneously one time a week. Problem List As Of Date 12/04/2024 Noted Resolved Cellulitis and abscess of trunk [L03.319, L02.2*03/15/2007 07/27/2010 MRSA (methicillin resistant staph aureus) cultu* Family history of malignant neoplasm of gastroi*08/31/2010 Benign neoplasm of rectum and anal canal [D12.8*08/31/2010 Benign neoplasm of colon [D12.6] 08/31/2010 Lumbago [M54.50] 01/21/2011 Prescriptions ordered this encounter Disp Refills Start End INV AR882 50 MG, 75 MG, OR PLACEBO C* 90 c* 0 12/04/2024 03/04/2025 Class: Print RX Route: PO Sig: Take 1 capsule by mouth once daily. For Investigational Drug Use Only, PI: Bean Rosas MD, PhD. Patient should start on December 04, 2024. Cosign accepted by BEAN ROSAS[[id number]] on 12/04/2024 4:19 PM ENALAPRIL MALEATE 5 MG TABLET 30 t* 1 12/04/2024 06/02/2025 Class: Med Update Route: PO Sig: Take 2 tablets by mouth once daily. Medications Discontinued During This Encounter Prescriptions - enalapril (VASOTEC) 5 mg tablet (Discontinued) Take 1 tablet by mouth once daily. (more content not included)... [facility] MARVIN MACHADO ([id number]) 1970 M Date Time Provider Department 11/08/24 3:00 PM NURSE [facility] During your visit today, we recorded the following information about you: Temperature Pulse Respiration Blood pressure 97.5 degrees 71/minute 18/minute 165/94 Tracy Willis RN 11/08/2024 3:35 PM Signed IRB# [id number] Study short name: Arthrosi Gout Study title: A Phase 3 Randomized, Double-blind, Multi-center, Placebo-controlled Study to Evaluate the Efficacy and Safety of AR882 in Participants with Gout (Protocol version 4.0) [id number] PI: Bean Rosas MD Research Nurse/Coordinator: Moises Reyna Visit #: Month 2, Subject ID [id number] Lab tubes coming from: Study Team for Core Lab Time Point Procedures Comments/Signature Prior to Visit Subject to take medication at home in the am prior to same day visit: Subject to be reminded by Coordinator. Baseline Subject continues to consent. Dose taken at home - Time: 1230 Height: 175.3 cm Weight: 130.3 kg - copied from office visit today Vital Signs collected Time: 1457 Clean catch urine sample obtained Time: 1515 UA given to Core lab Signature: Trayc Willis RN Post Dose 3-9 hours post dose Blood Draw Time: 1531 Butterfly used in left antecubital area. Blood drawn with vacutainer and syringe as needed and labs drawn per protocol. Butterfly removed after blood draw and site secured with sterile gauze. Patient tolerated procedure well. Signature: Tracy Willis RN Discharge D/C pt. to home Signature: Tracy Willis RN Allergies As of Date: 11/08/2024 (No Known Allergies) Date Reviewed: 11/08/2024 Reviewed by: Gayle Henry OCCA - Fully Assessed Reason for Visit: Research [[id number]] Cmt: IRB#[id number] Primary Visit Diagnosis:Examinatio n of participant in clinical trial [Z00.6] Order(s):[facility] SEND OUT TST 1 [SQMISC1] Order #: [id number] FUTURE Prescriptions as of 11/08/2024 - enalapril (VASOTEC) 5 mg tablet Take 1 tablet by mouth once daily. - INV AR882 50 MG, 75 MG, OR PLACEBO CAPSULE (IRB 24-859) Take 1 capsule by mouth once daily. For Investigational Drug Use Only, PI: Bean Rosas MD, PhD. Patient should start on November 08, 2024. - colchicine 0.6 mg tablet Take 1 tablet by mouth once daily. - testosterone (ANDROGEL PUMP) 20.25 mg/1.25 gram (1.62 %) transdermal gel Apply 2 Pump as directed once daily. - semaglutide, weight loss, (WEGOVY) 0.5 mg/0.5 mL pen injector Inject 2 mg subcutaneously one time a week. Problem List As Of Date 11/08/2024 Noted Resolved Cellulitis and abscess of trunk [L03.319, L02.2*03/15/2007 07/27/2010 MRSA (methicillin resistant staph aureus) cultu* Family history of malignant neoplasm of gastroi*08/31/2010 Benign neoplasm of rectum and anal canal [D12.8*08/31/2010 Benign neoplasm of colon [D12.6] 08/31/2010 Lumbago [M54.50] 01/21/2011 Encounter Status:Closed by TRACY WILLIS on 11/08/24 [facility] CNOVon 11-08-2024 [facility] Office Visit (RHEUMN) MARVIN MACHADO ([id number]) 1970 M Date Time Provider Department 11/08/24 2:30 PM BEAN ROSAS During your visit today, we recorded the following information about you: Temperature Pulse Blood pressure Weight 98.1 degrees 64/minute 166/99 130.3 kg Height 1.753 m Bean Rosas MD, PhD 11/08/2024 3:10 PM Addendum Clinical Research Study - Rheumatic and Immunologic Diseases IRB#[id number] Protocol Title: A Phase 3 Randomized, Double-blind, Multi-center, Placebo-controlled Study to Evaluate the Efficacy and Safety of AR882 in Participants with Gout PI: Dr. Bean Rosas MD, PhD no flares in gout - after working on ground under a truck (w/o knee pads) had pain and tender ant to r patella - no red/swelling took some ibuprofen and tylenol now just minimal tender itching w/o rash that he experienced is resolved and not returned. he says BP in past was in 120s MONTH 2: Vitals: Height: 175.3cm Weight:287lbs (130.3kg) BMI:42.4 Systolic BP:148 (by MD) Diastolic BP:98 Pulse Rate:66 Respiratory Rate: 20 Body Temperature:98.1 Abbreviated Physical Exam: Cardiovascular:jing l Abdomen: Normal Skin: Normal Respiratory: Normal Abnormal, description of abnormality: right patella minimal tender inferior/ant aspect no knee joint tenderness left great toe distal joint enlargement which appears as tophus non tender no real change Impression: Will the subject continue on study drug? YES Answers submitted by the patient for this visit: Review of Systems Rheumatology (Submitted on 11/08/2024) Fever : No Recent unintentional weight change: No Eye pain: No Eye redness: No Vision Disturbance: No Eye Dryness: No Nosebleeds: No Sores in your mouth: No Trouble Swallowing: No Dry Mouth: No Chest pain: No Leg Swelling: Yes A cough: No Shortness of breath: No Pain with breathing: No Heartburn: No Abdominal pain: No Diarrhea: No Black tarry stools: No Blood in urine: No Pain or burning with urination: No Joint pain or stiffness: Yes Muscle weakness: Yes Muscle aches: Yes Joint swelling: No Morning Stiffness in Joints: No A rash: No Skin Color Changes: No Hair Loss: No Nail Changes: No Headaches: No Numbness: No Memory Loss: No Swollen Glands: No imp: no issues with the study drug; no clear self defined flares or problems w study compound HTN - will initiate low dose 5 mg enalapril - advised to confirm this w his primary who has checked previously (he recalls ~ 124 systolic at that visit) Bean Rosas MD, PhD research visit PROs sent to patient, instructed to complete within 3 days of visit. Gout flare diary reviewed and pt remains compliant and continued to encourage compliance. Pt will continue on colchicine prophylaxis per PI. Month 1 bottle ([id number]) returned, all capsules used Backup bottle ([id number]) returned an re dispensed, capsules used Month 2 bottle dispensed 11/08/2024: ([id number]) 50mg, 75mg or matching placebo 30 capsules Conmeds (see med list) and AE's reviewed: AE Term: Generalized (migratory) pruritus; no rash Start/End: SEP 18 - OCT 19 Severity: mild Relation: possibly related to study treatment/prophylaxi s AE Term: Knee Pain Start/End: NOVEMBER 18 - ongoing Severity: mild Relation: unlikely related to study treatment/prophylaxi s Moises Reyna Research Coordinator Allergies As of Date: 11/08/2024 (No Known Allergies) Date Reviewed: 11/08/2024 Reviewed by: Gayle Henry OCCA - Fully Assessed Primary Visit Diagnosis:Research study patient [Z00.6] Other Visit Diagnosis:Idiopathic gout, unspecified chronicity, unspecified site [M10.00] Order(s):INV AR882 50 MG, 75 MG, OR PLACEBO CAPSULE (IRB 24-859)Take 1 capsule by mouth once daily. For Investigational Drug Use Only, PI: Bean Rosas MD, PhD. Patient should start on November 08, 2024.Disp: 30 capsuleRfl: 0 Prescriptions as of 01/25/2025 - enalapril (VASOTEC) 5 mg tablet Take 2 tablets by mouth once daily. - INV AR882 50 MG, 75 MG, OR PLACEBO CAPSULE (IRB 24-859) Take 1 capsule by mouth once daily. For Investigational Drug Use Only, PI: Bean Rosas MD, PhD. Patient should start on December 04, 2024. - INV AR882 50 MG, 75 MG, OR PLACEBO CAPSULE (IRB 24-859) Take 1 capsule by mouth once daily. For Investigational Drug Use Only, PI: Bean Rosas MD, PhD. Patient should start on November 08, 2024. - colchicine 0.6 mg tablet Take 1 tablet by mouth once daily. - testosterone (ANDROGEL PUMP) 20.25 mg/1.25 gram (1.62 %) transdermal gel Apply 2 Pump as directed once daily. - semaglutide, weight loss, (WEGOVY) 0.5 mg/0.5 mL pen injector Inject 2 mg subcutaneously one time a week. Problem List As Of Date (more content not included)... Normal [facility] CNNURSEon 10-04-2024 [facility] Nurse Visit (GCMN) MARVIN MACHADO ([id number]) 1970 M Date Time Provider Department 10/04/24 3:00 PM [facility] During your visit today, we recorded the following information about you: Temperature Pulse Respiration Blood pressure 97.3 degrees 72/minute 16/minute 148/94 Monika Dunne RN 10/04/2024 3:32 PM Signed IRB# [id number] Study short name: Arthrosi Gout Study title: A Phase 3 Randomized, Double-blind, Multi-center, Placebo-controlled Study to Evaluate the Efficacy and Safety of AR882 in Participants with Gout (Protocol version 4.0) [id number] PI: Bean Rosas MD Research Nurse/Coordinator: Moises Reyna Visit #: Month 1 Subject ID [id number] Lab tubes coming from: Study Team for Core Lab Time Point Procedures Comments/Signature Prior to Visit Subject to take medication at home in the am prior to same day visit: Subject to be reminded by Coordinator. Baseline Subject continues to consent. Dose taken at home - Time: 1200 Height: 178.3 cm Weight: 129.3 kg Vital Signs collected Time: 1508 Clean catch urine sample obtained Time: 1515 UA given to Core lab Signature: Monika Dunne RN Post Dose 3-9 hours post dose Blood Draw Time: 1512 Butterfly used in left antecubital area. Blood drawn with vacutainer and syringe as needed and labs drawn per protocol. Butterfly removed after blood draw and site secured with sterile gauze. Patient tolerated procedure well. Signature: Monika Dunne RN Discharge D/C pt. to home Signature: Monika Dunne RN Allergies As of Date: 10/04/2024 (No Known Allergies) Date Reviewed: 08/21/2024 Reviewed by: Luisa Oleary OCCA - Fully Assessed Primary Visit Diagnosis:Examinatio n of participant in clinical trial [Z00.6] Order(s):[facility] SEND OUT TST 1 [SQMISC1] Order #: [id number] FUTURE Prescriptions as of 10/04/2024 - INV AR882 50 MG, 75 MG, OR PLACEBO CAPSULE (IRB 24-859) Take 1 capsule by mouth once daily. For Investigational Drug Use Only, PI: Bean Rosas MD, PhD. Patient should start on October 04, 2024. - colchicine 0.6 mg tablet Take 1 tablet by mouth once daily. - testosterone (ANDROGEL PUMP) 20.25 mg/1.25 gram (1.62 %) transdermal gel Apply 2 Pump as directed once daily. - semaglutide, weight loss, (WEGOVY) 0.5 mg/0.5 mL pen injector Inject 1 mg subcutaneously one time a week. Problem List As Of Date 10/04/2024 Noted Resolved Cellulitis and abscess of trunk [L03.319, L02.2*03/15/2007 07/27/2010 MRSA (methicillin resistant staph aureus) cultu* Family history of malignant neoplasm of gastroi*08/31/2010 Benign neoplasm of rectum and anal canal [D12.8*08/31/2010 Benign neoplasm of colon [D12.6] 08/31/2010 Lumbago [M54.50] 01/21/2011 Encounter Status:Closed by MONIKA DUNNE on 10/04/24 Normal [facility] CNOVon 10-04-2024 CNOV Office Visit (RHEUMN) MARVIN MACHADO ([id number]) 1970 M Date Time Provider Department 10/04/24 4:00 PM BEAN ROSAS During your visit today, we recorded the following information about you: Temperature Pulse Blood pressure Weight 97.3 degrees 72/minute 148/94 130.2 kg Height 1.753 m Bean Rosas MD, PhD 10/04/2024 4:00 PM Addendum Clinical Research Study - Rheumatic and Immunologic Diseases IRB#[id number] Protocol Title: A Phase 3 Randomized, Double-blind, Multi-center, Placebo-controlled Study to Evaluate the Efficacy and Safety of AR882 in Participants with Gout PI: Dr. Bean Rosas MD, PhD has been taking drug regularly and colchicine regularly had about 1.5-2 weeks of migratory itching, NO rash. but that has resolved - possibly drug related 1 episode mild discomfort w possible swelling small toes right foot. lasted about a day - no limp and didn't take anything for this possible flare. has been taking colchicine prophylaxis. 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 tolerating and taking the drug and prophylaxis Will the subject continue on study drug? YES Answers submitted by the patient for this visit: Review of Systems Rheumatology (Submitted on 09/30/2024) Fever : No Recent unintentional weight change: No Eye pain: No Eye redness: No Vision Disturbance: No Eye Dryness: No Nosebleeds: No Sores in your mouth: No Trouble Swallowing: No Dry Mouth: No Chest pain: No Leg Swelling: No A cough: No Shortness of breath: No Pain with breathing: No Heartburn: No Abdominal pain: No Diarrhea: No Black tarry stools: No Blood in urine: No Pain or burning with urination: No Joint pain or stiffness: Yes Muscle weakness: No Muscle aches: Yes - nothing lasting Joint swelling: No Morning Stiffness in Joints: No A rash: No Skin Color Changes: No Hair Loss: No Nail Changes: No Headaches: No Numbness: No Memory Loss: No Swollen Glands: No PROs completed during visit, gout flare diary reviewed, pt has been compliant and encouraged continued compliance. Pt will continue on colchicine prophylaxis per PI. D1 bottle returned ([id number]) with 2 capsules unused. Backup bottle ([id number]) unopened and re dispensed Month 1 bottle dispensed 10/04/24: ([id number]) 50mg, 75mg or matching placebo 30 capsules Conmeds and AE's reviewed: AE Term: Generalized (migratory) pruritus; no rash Start/End: SEP 18 - OCT 19 Severity: mild Relation: possibly related to study treatment/prophylaxi s Moises Reyna Research Coordinator Allergies As of Date: 10/04/2024 (No Known Allergies) Date Reviewed: 10/04/2024 Reviewed by: Kaelyn Aldrich MA - Fully Assessed Primary Visit Diagnosis:Idiopathic gout, unspecified chronicity, unspecified site [M10.00] Order(s):[] INV AR882 50 MG, 75 MG, OR PLACEBO CAPSULE (IRB 24-859)Take 1 capsule by mouth once daily. For Investigational Drug Use Only, PI: Bean Rosas MD, PhD. Patient should start on October 04, 2024.Disp: 30 capsuleRfl: 0 Prescriptions as of 01/25/2025 - enalapril (VASOTEC) 5 mg tablet Take 2 tablets by mouth once daily. - INV AR882 50 MG, 75 MG, OR PLACEBO CAPSULE (IRB 24-859) Take 1 capsule by mouth once daily. For Investigational Drug Use Only, PI: Bean Rosas MD, PhD. Patient should start on December 04, 2024. - INV AR882 50 MG, 75 MG, OR PLACEBO CAPSULE (IRB 24-859) Take 1 capsule by mouth once daily. For Investigational Drug Use Only, PI: Bean Rosas MD, PhD. Patient should start on November 08, 2024. - colchicine 0.6 mg tablet Take 1 tablet by mouth once daily. - testosterone (ANDROGEL PUMP) 20.25 mg/1.25 gram (1.62 %) transdermal gel Apply 2 Pump as directed once daily. - semaglutide, weight loss, (WEGOVY) 0.5 mg/0.5 mL pen injector Inject 2 mg subcutaneously one time a week. Problem List As Of Date 10/04/2024 Noted Resolved Cellulitis and abscess of trunk [L03.319, L02.2*03/15/2007 07/27/2010 MRSA (methicillin resistant staph aureus) cultu* Family history of malignant neoplasm of gastroi*08/31/2010 Benign neoplasm of rectum and anal canal [D12.8*08/31/2010 Benign neoplasm of colon [D12.6] 08/31/2010 Lumba (more content not included)... Normal [facility] CNPNon 09-07-2024 CNPN Telephone (RHEUMN) MARVIN MACHADO ([id number]) 1970 M Date Time Provider Department 09/07/24 BEAN ROSAS During your visit today, we recorded the following information about you: Crystal Godinez 09/07/2024 12:35 PM Signed Received miscellaneous outside medical records, scanned into chart for review Allergies As of Date: 09/07/2024 (No Known Allergies) Date Reviewed: 08/21/2024 Reviewed by: Luisa Oleary OCCA - Fully Assessed Reason for Visit: Received Outside Medical Records [[id number]] Prescriptions as of 09/17/2024 - colchicine 0.6 mg tablet Take 1 tablet by mouth once daily. - testosterone (ANDROGEL PUMP) 20.25 mg/1.25 gram (1.62 %) transdermal gel Apply 2 Pump as directed once daily. - semaglutide, weight loss, (WEGOVY) 0.5 mg/0.5 mL pen injector Inject 1 mg subcutaneously one time a week. Problem List As Of Date 09/07/2024 Noted Resolved Cellulitis and abscess of trunk [L03.319, L02.2*03/15/2007 07/27/2010 MRSA (methicillin resistant staph aureus) cultu* Family history of malignant neoplasm of gastroi*08/31/2010 Benign neoplasm of rectum and anal canal [D12.8*08/31/2010 Benign neoplasm of colon [D12.6] 08/31/2010 Lumbago [M54.50] 01/21/2011 Encounter Status:Closed by CRYSTAL GODINEZ on 09/17/24 [facility] 09-06-2024 [facility] Nurse Visit (GCMN) MARVIN MACHADO ([id number]) 1970 M Date Time Provider Department 09/06/24 3:00 PM [facility] During your visit today, we recorded the following information about you: Temperature Pulse Respiration Blood pressure 97.3 degrees 61/minute 14/minute 151/85 Elsa Whitehead RN 09/06/2024 4:51 PM Addendum IRB# [id number] Study short name: Arthrosi Gout Study title: A Phase 3 Randomized, Double-blind, Multi-center, Placebo-controlled Study to Evaluate the Efficacy and Safety of AR882 in Participants with Gout (Protocol version 4.0) [id number] PI: Bean Rosas MD Research Nurse/Coordinator: Moises Reyna Visit #: Day 1 Subject ID [id number] Lab tubes coming from: Study Team for Core Lab Time Point Procedures Comments/Signature Prior to Visit Gather special equipment (CRU EKG machine) Baseline Subject continues to consent. Height: 175.3 cm Weight: 130.4 kg Vital Signs collected Time: 1604 EKG Time: 1604 Clean catch urine sample obtained Time: 1607 UA given to Core lab EKG's are uploaded into EMR Signature: Elsa Whitehead RN, Nohelia Sue RN Pre Dose Within 2 hours pre- dose Blood Draw Time: 1613 Butterfly used in left antecubital area. Blood drawn with vacutainer and syringe as needed and labs drawn per protocol. Butterfly removed after blood draw and site secured with sterile gauze. Patient tolerated procedure well. Signature: Elsa Whitehead RN, Nohelia Sue RN Dosing Study drug given orally at 1618 - see eMAR Pt. observed for 30 minutes post dose: Time 1648 Signature: Elsa Whitehead RN, Nohelia Sue RN Discharge D/C pt. to home Signature: Elsa Whitehead RN, Nohelia Sue RN Addendum 10/25/24: Pt was witnessed given medication by Elsa Whitehead RN without food at time documented in the eMAR Moises Reyna Research Coordinator Referring Provider: SELF [200] Allergies As of Date: 09/06/2024 (No Known Allergies) Date Reviewed: 08/21/2024 Reviewed by: Luias Oleary OCCA - Fully Assessed Reason for Visit: Research [293] Cmt: IRB#[id number] Primary Visit Diagnosis:Examinatio n of participant in clinical trial [Z00.6] Order(s):[] INV 50mg, 75mg AR882 or placebo (IRB#[id number])Disp: Rfl: [facility] SEND OUT TST 1 [SQMISC1] Order #: [id number] FUTURE Prescriptions as of 10/25/2024 - INV AR882 50 MG, 75 MG, OR PLACEBO CAPSULE (IRB 24-859) Take 1 capsule by mouth once daily. For Investigational Drug Use Only, PI: Bean Rosas MD, PhD. Patient should start on October 04, 2024. - colchicine 0.6 mg tablet Take 1 tablet by mouth once daily. - testosterone (ANDROGEL PUMP) 20.25 mg/1.25 gram (1.62 %) transdermal gel Apply 2 Pump as directed once daily. - semaglutide, weight loss, (WEGOVY) 0.5 mg/0.5 mL pen injector Inject 2 mg subcutaneously one time a week. Problem List As Of Date 09/06/2024 Noted Resolved Cellulitis and abscess of trunk [L03.319, L02.2*03/15/2007 07/27/2010 MRSA (methicillin resistant staph aureus) cultu* Family history of malignant neoplasm of gastroi*08/31/2010 Benign neoplasm of rectum and anal canal [D12.8*08/31/2010 Benign neoplasm of colon [D12.6] 08/31/2010 Lumbago [M54.50] 01/21/2011 Prescriptions ordered this encounter Disp Refills Start End [facility] 09/06/2024 09/06/2024 Route: ORAL Encounter Status:Closed by ELSA WHITEHEAD on 09/06/24 [facility] CNOVon 09-06-2024 CNOV Office Visit (RHEUMN) MARVIN MACHADO ([id number]) 1970 M Date Time Provider Department 09/06/24 2:30 PM BEAN ROSAS RHEUMNimisha During your visit today, we recorded the following information about you: Temperature Pulse Respiration Blood pressure 97.3 degrees 60/minute 18/minute 155/96 Weight Height 130.4 kg 1.753 m Bean Rosas MD, PhD 09/06/2024 4:08 PM Addendum here randomization and drug dispensing visit for the arthrosi protocol Clinical Research Study - Rheumatic and Immunologic Diseases IRB#[id number] Protocol Title: A Phase 3 Randomized, Double-blind, Multi-center, Placebo-controlled Study to Evaluate the Efficacy and Safety of AR882 in Participants with Gout PI: Dr. Bean Rosas MD, PhD DAY ONE: RANDOMIZATION: Is the Subject ready to be randomized? Yes Has the subject been on prophylaxis at least 10 days prior to randomization date? Yes Does subject experience any Gout Flare 7 days before randomization? No Vitals: Blood pressure 155/96, pulse 60, temperature 36.3 ?C (97.3 ?F), temperature source Oral, resp. rate 18, height 175.3 cm (5' 9), weight 130.4 kg (287 lb 7.7 oz), SpO2 98%. 152/92 lue seated (my exam) Physical Exam: Head, eyes, ears and nose:Normal Throat: Normal Cardiovascular:nl Abdomen: Normal Abnormal, description of abnormality: Skin: Normal Abnormal, description of abnormality: Respiratory: Normal Abnormal, description of abnormality: Neurological: Normal Abnormal, description of abnormality: Tender/Swollen Joint count: Count of Tender joints: 0 Count of Swollen joints: 0 Tophus Count - Left side Target Areas Left Wrist: Left Hand: Left Ankle: Left Foot: 1st DIP Non-Target Areas Left Ear: Left Elbow: Left Knee/Patella: Dermis: Specify: Other: Specify: Tophus Count - Right side Target Areas Right Wrist: Right Hand: Right Ankle: Right Foot: Non-Target Areas Right Ear: Right Elbow: Right Knee/Patella: Dermis: Specify: Other: Specify: imp: may need to have BP addressed, but feels well no flares (asymptomatic) no issues w colchicine no questions re protocol or plans for randomization - Inclusion/exclusion criteria reviewed and patient is eligible to continue with randomization. Pt had vitals, labs, and EKG then was given first dose orally in CRU at 1618 - See CRU note. Bottles dispensed 09/06/2024: [id number], 50mg, 75mg or matching placebo 30 capsules [id number], 50mg, 75mg or matching placebo 30 capsules *Backup Bottle* Pt educated on backup bottle. Pt understands he is only to use back up bottle if the first bottle is used up, and to bring back to every visit for accountability. PROs and gout flare diary completed in person. Educated patient on gout flare diary and Empiramed. Pt understands he will need to complete flare diary at least once every two weeks and complete PROs within 3 days of research appointment. Patient continues colchicine, conmeds and AE's reviewed. Moises Reyna Research Coordinator Referring Provider: SELF [200] Allergies As of Date: 09/06/2024 (No Known Allergies) Date Reviewed: 08/21/2024 Reviewed by: Luisa Oleary OCCA - Fully Assessed Primary Visit Diagnosis:Research exam [Z00.6] Prescriptions as of 01/25/2025 - enalapril (VASOTEC) 5 mg tablet Take 2 tablets by mouth once daily. - INV AR882 50 MG, 75 MG, OR PLACEBO CAPSULE (IRB 24-859) Take 1 capsule by mouth once daily. For Investigational Drug Use Only, PI: Bean Rosas MD, PhD. Patient should start on December 04, 2024. - INV AR882 50 MG, 75 MG, OR PLACEBO CAPSULE (IRB 24-859) Take 1 capsule by mouth once daily. For Investigational Drug Use Only, PI: Bean Rosas MD, PhD. Patient should start on November 08, 2024. - colchicine 0.6 mg tablet Take 1 tablet by mouth once daily. - testosterone (ANDROGEL PUMP) 20.25 mg/1.25 gram (1.62 %) transdermal gel Apply 2 Pump as directed once daily. - semaglutide, weight loss, (WEGOVY) 0.5 mg/0.5 mL pen injector Inject 2 mg subcutaneously one time a week. Problem List As Of Date 09/06/2024 Noted Resolved Cellulitis and abscess of trunk [L03.319, L02.2*03/15/2007 07/27/2010 MRSA (methicillin resistant staph aureus) cultu* Family history of malignant neoplasm of gastroi*08/31/2010 Benign neoplasm of rectum and anal canal [D12.8*08/31/2010 Benign neoplasm of colon [D12.6] 08/31/2010 Lumbago [M54.50] 01/21/2011 Encounter Status:Closed by ALISON, BEAN on 09/06/24 Normal [facility] [id number] 09-06-2024 ECG01 Ventricular Rate : 58 BPM Atrial Rate : 58 BPM P-R Interval : 162 ms QRS Duration : 100 ms Q-T Interval : 428 ms QTC Calculation(Bazett) : 420 ms Calculated P [place] : 12 degrees Calculated R [place] : 10 degrees Calculated T [place] : 18 degrees SINUS BRADYCARDIA OTHERWISE NORMAL ECG Confirmed by MESHA DASH MD ([id number]) on 10/04/2024 2:24:10 PM NAME : MARVIN MACHADO PID : [id number] : 1970 Gender : Male Race : ORD : Procedure Date : Sep 06 2024 16:04:39 Edit Date : Oct 04 2024 14:24:10 Diagnosis: SINUS BRADYCARDIA OTHERWISE NORMAL ECG Confirmed by MESHA DASH MD ([id number]) on 10/04/2024 2:24:10 PM Test Reason : research Location : [facility] Overread By : MESHA DASH MD Edited By : MESHA DASH MD Referred By : , Acquired by : Zaynab lind [facility] US KIDNEY/BLADDERon 08-24-19 US KIDNEY/BLADDER * * *Final Report* * * DATE OF EXAM: Aug 24 2024 3:27PM [facility] 1055 - US KIDNEY/BLADDER / PROCEDURE REASON: Examination of participant or control in clinical research * * * * Physician Interpretation * * * * EXAMINATION: RENAL ULTRASOUND CLINICAL HISTORY: Examination of participant or control in clinical research . For research, IRB#[id number] TECHNIQUE: Sonography of the kidneys and urinary bladder was performed. Images were obtained and stored in a permanent archive. MQ: UR_1 COMPARISON: CT scan from 09/15/2010 RESULT: Right Kidney: -Renal length: 13.0 cm -Parenchyma: Normal echogenicity and thickness. -Collecting system: No hydronephrosis. -Calculus: None -Lesion: none Left Kidney: -Renal length: 11.4 cm -Parenchyma: Normal echogenicity and thickness. -Collecting system: No hydronephrosis. -Calculus: None -Lesion: none Bladder: Normal sonographic appearance. Volume = 173 cc. Increased echogenicity of the visualized liver parenchyma suggests hepatic steatosis. - IMPRESSION: Normal sonographic appearance of kidneys and bladder. Probable hepatic steatosis. Warehouse Packer: CHRISS Transcribe Date/Time: Aug 26 2024 7:13A Dictated by : ALDO HENSON MD This examination was interpreted and the report reviewed and electronically signed by: ALDO HENSON MD on Aug 26 2024 7:14AM EST [id number] Normal [facility] CNNURSEon 08-21-2024 CNNURSE Nurse Visit (GCMN) MARVIN MACHADO ([id number]) 1970 M Date Time Provider Department 08/21/24 4:00 PM NURSE [facility] During your visit today, we recorded the following information about you: Temperature Pulse Respiration Blood pressure 97.2 degrees 69/minute 16/minute 149/83 Weight Height 134 kg 1.753 m Elsa Whitehead RN 08/21/2024 4:31 PM Signed IRB# [id number] Study short name: Arthrosi Gout Study title: A Phase 3 Randomized, Double-blind, Multi-center, Placebo-controlled Study to Evaluate the Efficacy and Safety of AR882 in Participants with Gout (Protocol version 4.0) [id number] PI: Bean Rosas MD Research Nurse/Coordinator: Moises Reyna Visit #: Screening Subject ID [id number] Lab tubes coming from: Study Team for Core Lab Time Point Procedures Comments/Signature Prior to Visit Gather special equipment (CRU EKG machine) Baseline Subject consented to study participation. Height: 175.3 cm Weight: 134.0 kg Vital Signs collected Time: 1615 EKG Time: 1619 Clean catch urine sample obtained Time: 1626 UA given to Core lab Blood Draw Time: 162 Butterfly used in left antecubital area. Blood drawn with vacutainer and syringe as needed and labs drawn per protocol. Butterfly removed after blood draw and site secured with sterile gauze. Patient tolerated procedure well. EKG's are uploaded into EMR Signature: Elsa Whitehead RN Discharge D/C pt. to home Signature: Elsa Whitehead RN Referring Provider: SELF [200] Allergies As of Date: 08/21/2024 (No Known Allergies) Date Reviewed: 08/21/2024 Reviewed by: Luisa Oleary OCCA - Fully Assessed Reason for Visit: Research [293] Cmt: IRB #[id number] Primary Visit Diagnosis:Examinatio n of participant in clinical trial [Z00.6] Other Visit Diagnosis:Examinatio n of participant or control in clinical research [Z00.6] Order(s):[facility] SEND OUT TST 1 [SQMISC1] Order #: [id number] FUTURE ECG COMPLETE [ECG01] Order #: [id number] FUTURE Prescriptions as of 08/21/2024 - testosterone (ANDROGEL PUMP) 20.25 mg/1.25 gram (1.62 %) transdermal gel Apply 2 Pump as directed once daily. - semaglutide, weight loss, (WEGOVY) 0.5 mg/0.5 mL pen injector Inject 1 mg subcutaneously one time a week. Problem List As Of Date 08/21/2024 Noted Resolved Cellulitis and abscess of trunk [L03.319, L02.2*03/15/2007 07/27/2010 MRSA (methicillin resistant staph aureus) cultu* Family history of malignant neoplasm of gastroi*08/31/2010 Benign neoplasm of rectum and anal canal [D12.8*08/31/2010 Benign neoplasm of colon [D12.6] 08/31/2010 Lumbago [M54.50] 01/21/2011 Encounter Status:Closed by ELSA WHITEHEAD on 08/21/24 [facility] CNOVon 08-21-2024 CNOV Office Visit (RHEUMN) MARVIN MACHADO ([id number]) 1970 M Date Time Provider Department 08/21/24 2:30 PM BEAN ROSAS During your visit today, we recorded the following information about you: Temperature Pulse Blood pressure Weight 98 degrees 60/minute 155/81 134 kg Height 1.753 m Bean Rosas MD, PhD 08/26/2024 1:36 PM Addendum here for likely gout - 30 yrs ago started having abrupt painful episodes of pain/redness. last flare month ago l [facility]. has had several past year - and over time included mid-feet, mar 2023 uloric took for few months, insurance wouldn't cover so switched to allopurinol and had several flares (doesn't recall level) Clinical Research Study - Rheumatic and Immunologic Diseases IRB#[id number] Protocol Title: A Phase 3 Randomized, Double-blind, Multi-center, Placebo-controlled Study to Evaluate the Efficacy and Safety of AR882 in Participants with Gout PI: Dr. Bean Rosas MD, PhD SCREENING VISIT: Benefits, risks, anticipated outcomes and alternatives of the study discussed with the patient along with the roles and tasks of the patient and personnel to be involved. The patient consents to the study and agrees to proceed. Questions were asked and answered, the subject demonstrated understanding of the research and their questions were answered. A copy of the signed Informed consent provided to the patient. Main consent: [facility] Version 4 [id number], IRB Approved Date: 08/02/2024 Expiration Date: 03/22/2025. Consent was obtained prior to any study procedures being completed. Date of Informed Consent: 08/21/2024 Protocol Version: Protocol Amendment V4 19 APR 2024 Demographics: Year of : 1970 Age: [age] year old Sex: male Is the subject a woman of childbearing potential? No If no, reason: Ethnicity: Not or Race: White Inclusion Criteria: Participants are eligible to be included in the study only if ALL the following criteria apply: 1. Male or female participants >= 18 to <= 85 years of age at the time of signing the informed consent form (ICF).Yes 2. Participants that have documented medical records stating history of gout. If no documented medical history of gout, delegated site personnel should complete the ACR/EULAR gout classification criteria calculator to confirm gout diagnosis. Yes 3. Must have had an occurrence of >= 2 self-reported gout flares in the last 12 months. Yes 4. Body weight must be >= 50 kg and body mass index between >= 18 to <= 45 kg/m2 Yes 5. Male or female participants. Contraceptive use by men and women should be consistent with Local regulations regarding the methods of contraception for those participating in clinical studies. Yes 6. Capable of giving signed informed consent, which includes compliance with the requirements and restrictions listed in the ICF and in this protocol. Yes 7. Participants must meet one of the following criteria: a. ULT-naive participants Yes OR b. Participants entering the study on ULT (allopurinol, febuxostat, probenecid, benzbromarone, sulfinpyrazone, and other ULTs indicated for gout) are willing to washout for a minimum of 10 days before first IP administration on Day 1. N/A 8. Participant meets one of the following criteria at Screening: a. If not currently taking an approved ULT, participant must have an sUA value >= 7.0 mg/dL (416 ?mol/L). Yes OR b. If entering the study on ULT treatment, participant must have an sUA value > 6.0 mg/dL (357 ?mol/L). N/A 9. Serum creatinine must be < 3.0 mg/dL and estimated CLcr >= 30 mL/min by Cockcroft-Gault formula. Yes 10. Participants taking concomitant medications must be on a stable dose from 4 weeks before Day 1 and agree to maintain the stable dose through to the Final Follow-up Visit. Yes 11. Participants previously prescribed pegloticase or rasburicase must have stopped taking these medications for at least 90 days before Day 1. N/A 12. Must be free of any clinically significant disease that would interfere with study evaluations or procedures as per the [employer]?s judgment Yes Exclusion Criteria: Participants are excluded from the study if ANY of the following criteria apply: 1. A history of clinically significant disorders or presenting with signs or symptoms of clinically significant disorders that are not well-controlled as per the [employer]?s judgment. No 2. History of symptomatic kidney stones (kidney stones with signs or symptoms) within the past 6 months, nephrectomy, and/or renal transplant. No 3. History of xanthinuria. No 4. History of tumor lysis syndrome or Lesch-Nyhan syndrome. No 5. Hemoglobin < 10 g/dL (males) or < 9 g/dL (females) at Screening. No 6. Alanine aminotransferase (ALT) or aspartate aminotransferase (AST) > 2.0 ? upper limit of normal (ULN) (more content not included)... Normal [facility] [id number] 08-21-2024 ECG01 Ventricular Rate : 64 BPM Atrial Rate : 64 BPM P-R Interval : 166 ms QRS Duration : 98 ms Q-T Interval : 422 ms QTC Calculation(Bazett) : 435 ms Calculated P [place] : 18 degrees Calculated R [place] : 6 degrees Calculated T [place] : 25 degrees NORMAL SINUS RHYTHM NORMAL ECG Confirmed by MD NEFTALI, PhD, SAL ([id number]) on 08/30/2024 8:32:52 AM NAME : MARVIN MACHADO PID : [id number] : 1970 Gender : Male Race : ORD : Procedure Date : Aug 21 2024 16:18:46 Edit Date : Aug 30 2024 08:32:57 Diagnosis: NORMAL SINUS RHYTHM NORMAL ECG Confirmed by MD NEFTALI, PhD, SAL ([id number]) on 08/30/2024 8:32:52 AM Test Reason : research Location : [facility] : [facility] Overread By : MD NEFTALI, PhD,SAL Edited By : MD NEFTALI, PhD,SAL Referred By : , Acquired by : Zaynab lind [facility] CBC-Complete Blood Cnt No Di ffon 08-07-2024 Erythrocyte distribution width (RBC) [Ratio] 12.7 % Normal 11.6-14.6 [facility] Comment on above: Performed By: #### L 509.3000, L501.1400 #### [facility] [address] [place], [place], [id number] Hematocrit (Bld) [Volume fraction] 47.3 % Normal 40-54 [facility] Comment on above: Performed By: #### L 509.3000, L501.1400 #### [facility] [address] [place], [address] Hemoglobin (Bld) [Mass/Vol] 15.3 g/dL Normal 13.0-16.5 [facility] Comment on above: Performed By: #### L 509.3000, L501.1400 #### [facility] [address] [place], [address] MCH (RBC) [Entitic mass] 27.9 pg Normal 27.0-32.0 [facility] Comment on above: Performed By: #### L 509.3000, L501.1400 #### [facility] [address] [place], [address] MCHC (RBC) [Mass/Vol] 32.3 g/dL Normal 32-36 [facility] Comment on above: Performed By: #### L 509.3000, L501.1400 #### [facility] [address] [place], [address] MCV (RBC) [Entitic vol] 86.3 fL Normal 80-94 [facility] Comment on above: Performed By: #### L 509.3000, L501.1400 #### [facility] [address] [place], [address] Platelet mean volume (Bld) [Entitic vol] 10.0 fL Normal 6.2-12.0 [facility] Comment on above: Performed By: #### L 509.3000, L501.1400 #### [facility] [address] [place], [address] Platelets (Bld) [#/Vol] 305 10*3/uL Normal 150-450 [facility] Comment on above: Performed By: #### L 509.3000, L501.1400 #### [facility] [address] [place], [address] RBC (Bld) [#/Vol] 5.48 10*6/uL Normal 4.6-6.2 [facility] Comment on above: Performed By: #### L 509.3000, L501.1400 #### [facility] [address] [place], [address] RDW SD 40.0 fl Normal 35.1-43.9 [facility] Comment on above: Performed By: #### L 509.3000, L501.1400 #### [facility] [address] [place], [address] WBC (Bld) [#/Vol] 7.0 10*3/uL Normal 4.4-11.0 [facility] Comment on above: Performed By: #### L 509.3000, L501.1400 #### [facility] [address] [place], [address] Comprehensive Metabolic Prof ilon 08-07-2024 Albumin [Mass/Vol] 3.9 g/dL Normal 3.2-5.0 [facility] Comment on above: Performed By: #### L 509.3000, L501.1400 #### [facility] [address] [place], [address] Albumin/Globulin [Mass ratio] 1.2 {ratio} Normal 0.9-2.4 [facility] Comment on above: Performed By: #### L 509.3000, L501.1400 #### [facility] [address] [place], [address] ALK P 43 U/L Low 45-117 [facility] Comment on above: Performed By: #### L 509.3000, L501.1400 #### [facility] [address] [place], [address] ALT [Catalytic activity/Vol] 44 U/L Normal 16-61 [facility] Comment on above: Performed By: #### L 509.3000, L501.1400 #### [facility] [address] [place], [address] AST [Catalytic activity/Vol] 15 U/L Normal 15-37 [facility] Comment on above: Performed By: #### L 509.3000, L501.1400 #### [facility] [address] [place], [address] Bilirubin [Mass/Vol] 0.40 mg/dL Normal 0.20-1.00 [facility] Comment on above: Result Comment: For patients on eltrombopag therapy, use of Dimension Adrian TBIL is not recommended. Performed By: #### L 509.3000, L501.1400 #### [facility] [address] [place], [address] BUN/CRE 16.0 RATIO Normal 10-20 [facility] Comment on above: Performed By: #### L 509.3000, L501.1400 #### [facility] [address] [place], [address] CA,Total 8.7 mg/dL Normal 8.5-10.1 [facility] Comment on above: Performed By: #### L 509.3000, L501.1400 #### [facility] [address] [place], [address] Chloride [Moles/Vol] 106 mmol/L Normal 98-107 [facility] Comment on above: Performed By: #### L 509.3000, L501.1400 #### [facility] [address] [place], [address] CO2 [Moles/Vol] 24.0 mmol/L Normal 21.0-32.0 [facility] Comment on above: Performed By: #### L 509.3000, L501.1400 #### [facility] [address] [place], [address] Creatinine [Mass/Vol] 1.06 mg/dL Normal 0.70-1.30 [facility] Comment on above: Result Comment: The validity of the calculated GFR GFRAA in patients over 70 years has not been determined. Clinical correlation is essential. Performed By: #### L 509.3000, L501.1400 #### [facility] [address] [place], [address] EST GFR - AA 94 mL/min Normal >60 [facility] Comment on above: Result Comment: Afri can Lao GFR Calc Performed By: #### L 509.3000, L501.1400 #### [facility] [address] [place], [address] GAP 9 Normal 5-15 [facility] Comment on above: Performed By: #### L 509.3000, L501.1400 #### [facility] [address] [place], [address] GFR/1.73 sq M.predicted among non-blacks MDRD (S/P/Bld) [Vol rate/Area] 78 mL/min/{1.73_m2} Normal >60 [facility] Comment on above: Result Comment: Non- GFR Calc Performed By: #### L 509.3000, L501.1400 #### [facility] [address] [place], [address] Globulin (S) [Mass/Vol] 3.2 g/dL Normal 2.2-4.2 [facility] Comment on above: Performed By: #### L 509.3000, L501.1400 #### [facility] [address] [place], [address] Glucose [Mass/Vol] 98 mg/dL Normal 74-106 [facility] Comment on above: Performed By: #### L 509.3000, L501.1400 #### [facility] [address] [place], [address] Potassium [Moles/Vol] 4.3 mmol/L Normal 3.5-5.1 [facility] Comment on above: Performed By: #### L 509.3000, L501.1400 #### [facility] [address] [place], [address] Sodium [Moles/Vol] 139 mmol/L Normal 136-145 [facility] Comment on above: Performed By: #### L 509.3000, L501.1400 #### [facility] [address] [place], [address] T PROT 7.1 g/dL Normal 6.4-8.2 [facility] Comment on above: Performed By: #### L 509.3000, L501.1400 #### [facility] [address] [place], [address] Urea nitrogen [Mass/Vol] 17 mg/dL Normal 7-18 [facility] Comment on above: Performed By: #### L 509.3000, L501.1400 #### [facility] [address] [place], [address] Hemoglobin A1con 08-07-2024 HbA1c (Bld) [Mass fraction] 6.0 % High 3.8-5.6 [facility] Comment on above: Result Comment: Norm al < 5.7 % Prediabetic 5.7 - 6.4 % Diabetic >or= 6.5 % Please note range changes. Performed By: #### L 509.3000, L501.1400 #### [facility] [address] [place], [address] Lipid Profileon 08-07-2024 Cholesterol [Mass/Vol] 201 mg/dL High 200 [facility] Comment on above: Result Comment: <200 mg/dL Desirable 200-240 mg/dL Borderline >240 mg/dL High Risk Performed By: #### L 509.3000, L501.1400 #### [facility] [address] [place], [address] Cholesterol in HDL [Mass/Vol] 50 mg/dL Normal [facility] Comment on above: Result Comment: The drugs N-Acetylcysteine and Metamizole may falsely depress this assay. Reference Range HDL <40 mg/dL Low HDL Cholesterol HDL >or= 60 mg/dL High HDL Cholesterol Performed By: #### L 509.3000, L501.1400 #### [facility] [address] [place], [address] Cholesterol in LDL [Mass/Vol] 128 mg/dL Normal 0-130 [facility] Comment on above: Performed By: #### L 509.3000, L501.1400 #### [facility] [address] [place], [address] Cholesterol in VLDL [Mass/Vol] 23 mg/dL Normal 5-40 [facility] Comment on above: Performed By: #### L 509.3000, L501.1400 #### [facility] [address] [place], [address] Triglyceride [Mass/Vol] 115 mg/dL Normal [facility] Comment on above: Result Comment: The drugs N-Acetylcysteine and Metamizole may falsely depress this assay. Serum Triglycerides Reference Interval Normal <150 mg/dL Borderline high 150 - 199 mg/dL High 200 - 499 mg/dL Very High > or = 500 mg/dL Performed By: #### L 509.3000, L501.1400 #### [facility] [address] [place], [address] PSA,Total - Annual Screenon 08-07-2024 PSA,TOT SCREEN 1.32 ng/mL Normal 0.00-4.00 [facility] Comment on above: Result Comment: This test was performed using the TPSA assay method for the My Single Point chemistry system. Values obtained with different assay methods cannot be used interchangably. When changing PSA assays in the course of monitoring a patient, additional sequential testing should be carried out to confirm baseline values. Performed By: #### L 509.3000, L501.1400 #### [facility] [address] [place], [address] CBC-Complete Blood Cnt No Di ffon 06-11-2024 Erythrocyte distribution width (RBC) [Ratio] 13.1 % Normal 11.6-14.6 [facility] Comment on above: Order Comment: Order Date: 02/29/24 Order Info: [id number] - CBC Performed By: #### L 100.0500, L509.3000, L500.4050, L500.4100 #### [facility] [address] [place], [address] Hematocrit (Bld) [Volume fraction] 45.0 % Normal 40-54 [facility] Comment on above: Order Comment: Order Date: 02/29/24 Order Info: [id number] - CBC Performed By: #### L 100.0500, L509.3000, L500.4050, L500.4100 #### [facility] [address] [place], [address] Hemoglobin (Bld) [Mass/Vol] 14.3 g/dL Normal 13.0-16.5 [facility] Comment on above: Order Comment: Order Date: 02/29/24 Order Info: [id number] - CBC Performed By: #### L 100.0500, L509.3000, L500.4050, L500.4100 #### [facility] [address] [place], [address] MCH (RBC) [Entitic mass] 27.8 pg Normal 27.0-32.0 [facility] Comment on above: Order Comment: Order Date: 02/29/24 Order Info: [id number] - CBC Performed By: #### L 100.0500, L509.3000, L500.4050, L500.4100 #### [facility] [address] [place], [address] MCHC (RBC) [Mass/Vol] 31.8 g/dL Low 32-36 [facility] Comment on above: Order Comment: Order Date: 02/29/24 Order Info: [id number] - CBC Performed By: #### L 100.0500, L509.3000, L500.4050, L500.4100 #### [facility] [address] [place], [address] MCV (RBC) [Entitic vol] 87.4 fL Normal 80-94 [facility] Comment on above: Order Comment: Order Date: 02/29/24 Order Info: [id number] - CBC Performed By: #### L 100.0500, L509.3000, L500.4050, L500.4100 #### [facility] [address] [place], [address] Platelet mean volume (Bld) [Entitic vol] 9.8 fL Normal 6.2-12.0 [facility] Comment on above: Order Comment: Order Date: 02/29/24 Order Info: [id number] - CBC Performed By: #### L 100.0500, L509.3000, L500.4050, L500.4100 #### [facility] [address] [place], [address] Platelets (Bld) [#/Vol] 322 10*3/uL Normal 150-450 [facility] Comment on above: Order Comment: Order Date: 02/29/24 Order Info: [id number] - CBC Performed By: #### L 100.0500, L509.3000, L500.4050, L500.4100 #### [facility] [address] [place], [address] RBC (Bld) [#/Vol] 5.15 10*6/uL Normal 4.6-6.2 [facility] Comment on above: Order Comment: Order Date: 02/29/24 Order Info: [id number] - CBC Performed By: #### L 100.0500, L509.3000, L500.4050, L500.4100 #### [facility] [address] [place], [address] RDW SD 41.7 fl Normal 35.1-43.9 [facility] Comment on above: Order Comment: Order Date: 02/29/24 Order Info: [id number] - CBC Performed By: #### L 100.0500, L509.3000, L500.4050, L500.4100 #### [facility] [address] [place], [address] WBC (Bld) [#/Vol] 8.9 10*3/uL Normal 4.4-11.0 [facility] Comment on above: Order Comment: Order Date: 02/29/24 Order Info: [id number] - CBC Performed By: #### L 100.0500, L509.3000, L500.4050, L500.4100 #### [facility] [address] [place], [address] Comprehensive Metabolic Prof [facility] 06-11-2024 Albumin [Mass/Vol] 3.8 g/dL Normal 3.2-5.0 [facility] Comment on above: Order Comment: Order Date: 02/29/24 Order Info: [id number] - CMP Order Info: [id number] - LIPID Order Date: 03/21/24 Order Info: [id number] - TSH Order Info: [id number] - T4F Performed By: #### L 100.0500, L509.3000, L500.4050, L500.4100 #### [facility] [address] [place], [address] Albumin/Globulin [Mass ratio] 1.1 {ratio} Normal 0.9-2.4 [facility] Comment on above: Order Comment: Order Date: 02/29/24 Order Info: [id number] - CMP Order Info: [id number] - LIPID Order Date: 03/21/24 Order Info: [id number] - TSH Order Info: [id number] - T4F Performed By: #### L 100.0500, L509.3000, L500.4050, L500.4100 #### [facility] [address] [place], [address] ALK P 42 U/L Low 45-117 [facility] Comment on above: Order Comment: Order Date: 02/29/24 Order Info: [id number] - CMP Order Info: [id number] - LIPID Order Date: 03/21/24 Order Info: [id number] - TSH Order Info: [id number] - T4F Performed By: #### L 100.0500, L509.3000, L500.4050, L500.4100 #### [facility] [address] [place], [address] ALT [Catalytic activity/Vol] 35 U/L Normal 16-61 [facility] Comment on above: Order Comment: Order Date: 02/29/24 Order Info: [id number] - CMP Order Info: [id number] - LIPID Order Date: 03/21/24 Order Info: [id number] - TSH Order Info: 7 - T4F Performed By: #### L 100.0500, L509.3000, L500.4050, L500.4100 #### [facility] [address] [place], [address] AST [Catalytic activity/Vol] 19 U/L Normal 15-37 [facility] Comment on above: Order Comment: Order Date: 02/29/24 Order Info: 86-1 - CMP Order Info: [id number] - LIPID Order Date: 03/21/24 Order Info: [id number] - TSH Order Info: 302-7 - T4F Performed By: #### L 100.0500, L509.3000, L500.4050, L500.4100 #### [facility] [address] [place], [address] Bilirubin [Mass/Vol] 0.40 mg/dL Normal 0.20-1.00 [facility] Comment on above: Order Comment: Order Date: 02/29/24 Order Info: [id number] - CMP Order Info: [id number] - LIPID Order Date: 03/21/24 Order Info: [id number] - TSH Order Info: [id number] - T4F Result Comment: For patients on eltrombopag therapy, use of Dimension Adrian TBIL is not recommended. Performed By: #### L 100.0500, L509.3000, L500.4050, L500.4100 #### [facility] [address] [place], [address] BUN/CRE 21.0 RATIO High 10-20 [facility] Comment on above: Order Comment: Order Date: 02/29/24 Order Info: [id number] - CMP Order Info: [id number] - LIPID Order Date: 03/21/24 Order Info: [id number] - TSH Order Info: [id number] - T4F Performed By: #### L 100.0500, L509.3000, L500.4050, L500.4100 #### [facility] [address] [place], [address] CA,Total 9.1 mg/dL Normal 8.5-10.1 [facility] Comment on above: Order Comment: Order Date: 02/29/24 Order Info: [id number] - CMP Order Info: [id number] - LIPID Order Date: 03/21/24 Order Info: [id number] - TSH Order Info: [id number] - T4F Performed By: #### L 100.0500, L509.3000, L500.4050, L500.4100 #### [facility] [address] [place], [address] Chloride [Moles/Vol] 106 mmol/L Normal 98-107 [facility] Comment on above: Order Comment: Order Date: 02/29/24 Order Info: 0786-1 - CMP Order Info: [id number] - LIPID Order Date: 03/21/24 Order Info: 3016-3 - TSH Order Info: 3024-7 - T4F Performed By: #### L 100.0500, L509.3000, L500.4050, L500.4100 #### [facility] [address] [place], [address] CO2 [Moles/Vol] 25.0 mmol/L Normal 21.0-32.0 [facility] Comment on above: Order Comment: Order Date: 02/29/24 Order Info: 86-1 - CMP Order Info: [id number] - LIPID Order Date: 03/21/24 Order Info: 3 - TSH Order Info: 3023-12 - T4F Performed By: #### L 100.0500, L509.3000, L500.4050, L500.4100 #### [facility] [address] [place], [address] Creatinine [Mass/Vol] 1.05 mg/dL Normal 0.70-1.30 [facility] Comment on above: Order Comment: Order Date: 02/29/24 Order Info: 86-1 - CMP Order Info: [id number] - LIPID Order Date: 03/21/24 Order Info: 3 - TSH Order Info: 3023-12 - T4F Result Comment: The validity of the calculated GFR GFRAA in patients over 70 years has not been determined. Clinical correlation is essential. Performed By: #### L 100.0500, L509.3000, L500.4050, L500.4100 #### [facility] [address] [place], [address] EST GFR - AA 95 mL/min Normal >60 [facility] Comment on above: Order Comment: Order Date: 02/29/24 Order Info: 0786-1 - CMP Order Info: [id number] - LIPID Order Date: 03/21/24 Order Info: 3015-08 - TSH Order Info: 3023-12 - T4F Result Comment: Afri can Lao GFR Calc Performed By: #### L 100.0500, L509.3000, L500.4050, L500.4100 #### [facility] [address] [place], [address] GAP 6 Normal 5-15 [facility] Comment on above: Order Comment: Order Date: 02/29/24 Order Info: 0786-1 - CMP Order Info: [id number] - LIPID Order Date: 03/21/24 Order Info: 3015-08 - TSH Order Info: 3023-12 - T4F Performed By: #### L 100.0500, L509.3000, L500.4050, L500.4100 #### [facility] [address] [place], [address] GFR/1.73 sq M.predicted among non-blacks MDRD (S/P/Bld) [Vol rate/Area] 79 mL/min/{1.73_m2} Normal >60 [facility] Comment on above: Order Comment: Order Date: 02/29/24 Order Info: 0786-1 - CMP Order Info: [id number] - LIPID Order Date: 03/21/24 Order Info: 3016-3 - TSH Order Info: 3023-7 - T4F Result Comment: Non- GFR Calc Performed By: #### L 100.0500, L509.3000, L500.4050, L500.4100 #### [facility] [address] [place], [address] Globulin (S) [Mass/Vol] 3.5 g/dL Normal 2.2-4.2 [facility] Comment on above: Order Comment: Order Date: 02/29/24 Order Info: 07-1 - CMP Order Info: [id number] - LIPID Order Date: 03/21/24 Order Info: 3016-3 - TSH Order Info: 302-7 - T4F Performed By: #### L 100.0500, L509.3000, L500.4050, L500.4100 #### [facility] [address] [place], [address] Glucose [Mass/Vol] 91 mg/dL Normal 74-106 [facility] Comment on above: Order Comment: Order Date: 02/29/24 Order Info: 0786-1 - CMP Order Info: [id number] - LIPID Order Date: 03/21/24 Order Info: 3016-3 - TSH Order Info: 3024-7 - T4F Performed By: #### L 100.0500, L509.3000, L500.4050, L500.4100 #### [facility] [address] [place], [address] Potassium [Moles/Vol] 3.9 mmol/L Normal 3.5-5.1 [facility] Comment on above: Order Comment: Order Date: 02/29/24 Order Info: 0786-1 - CMP Order Info: 55030-0 - LIPID Order Date: 03/21/24 Order Info: 3016-3 - TSH Order Info: 3024-7 - T4F Performed By: #### L 100.0500, L509.3000, L500.4050, L500.4100 #### [facility] [address] [place], [address] Sodium [Moles/Vol] 137 mmol/L Normal 136-145 [facility] Comment on above: Order Comment: Order Date: 02/29/24 Order Info: 0786-1 - CMP Order Info: [id number] - LIPID Order Date: 03/21/24 Order Info: 3016-3 - TSH Order Info: 3024-7 - T4F Performed By: #### L 100.0500, L509.3000, L500.4050, L500.4100 #### [facility] [address] [place], [address] T PROT 7.3 g/dL Normal 6.4-8.2 [facility] Comment on above: Order Comment: Order Date: 02/29/24 Order Info: 0786-1 - CMP Order Info: [id number] - LIPID Order Date: 03/21/24 Order Info: 3016-3 - TSH Order Info: 3024-7 - T4F Performed By: #### L 100.0500, L509.3000, L500.4050, L500.4100 #### [facility] [address] [place], [address] Urea nitrogen [Mass/Vol] 22 mg/dL High 7-18 [facility] Comment on above: Order Comment: Order Date: 02/29/24 Order Info: 0786-1 - CMP Order Info: [id number] - LIPID Order Date: 03/21/24 Order Info: 3015-3 - TSH Order Info: 3023-12 - T4F Performed By: #### L 100.0500, L509.3000, L500.4050, L500.4100 #### [facility] [address] [place], [address] Lipid Profileon 06-11-2024 Cholesterol [Mass/Vol] 199 mg/dL Normal 200 [facility] Comment on above: Order Comment: Order Date: 02/29/24 Order Info: 0786-1 - CMP Order Info: - LIPID Order Date: 03/21/24 Order Info: 3015-3 - TSH Order Info: 3023-12 - T4F Result Comment: <200 mg/dL Desirable 200-240 mg/dL Borderline >240 mg/dL High Risk Performed By: #### L 100.0500, L509.3000, L500.4050, L500.4100 #### [facility] [address] [place], [address] Cholesterol in HDL [Mass/Vol] 48 mg/dL Normal [facility] Comment on above: Order Comment: Order Date: 02/29/24 Order Info: 0786-1 - CMP Order Info: [id number] - LIPID Order Date: 03/21/24 Order Info: 3 - TSH Order Info: 3023-12 - T4F Result Comment: The drugs N-Acetylcysteine and Metamizole may falsely depress this assay. Reference Range HDL <40 mg/dL Low HDL Cholesterol HDL >or= 60 mg/dL High HDL Cholesterol Performed By: #### L 100.0500, L509.3000, L500.4050, L500.4100 #### [facility] [address] [place], [address] Cholesterol in LDL [Mass/Vol] 124 mg/dL Normal 0-130 [facility] Comment on above: Order Comment: Order Date: 02/29/24 Order Info: 0786-1 - CMP Order Info: [id number] - LIPID Order Date: 03/21/24 Order Info: 6-3 - TSH Order Info: 7 - T4F Performed By: #### L 100.0500, L509.3000, L500.4050, L500.4100 #### [facility] [address] [place], [address] Cholesterol in VLDL [Mass/Vol] 27 mg/dL Normal 5-40 [facility] Comment on above: Order Comment: Order Date: 02/29/24 Order Info: 0786-1 - CMP Order Info: [id number] - LIPID Order Date: 03/21/24 Order Info: 3 - TSH Order Info: 7 - T4F Performed By: #### L 100.0500, L509.3000, L500.4050, L500.4100 #### [facility] [address] [place], [address] Triglyceride [Mass/Vol] 135 mg/dL Normal [facility] Comment on above: Order Comment: Order Date: 02/29/24 Order Info: 07-1 - CMP Order Info: - LIPID Order Date: 03/21/24 Order Info: 3 - TSH Order Info: 3023-12 - T4F Result Comment: The drugs N-Acetylcysteine and Metamizole may falsely depress this assay. Serum Triglycerides Reference Interval Normal <150 mg/dL Borderline high 150 - 199 mg/dL High 200 - 499 mg/dL Very High > or = 500 mg/dL Performed By: #### L 100.0500, L509.3000, L500.4050, L500.4100 #### [facility] [address] [place], [address] T4 Free Directon 06-11-2024 T4 FREE DIRECT 0.96 ng/dL Normal 0.76-1.46 [facility] Comment on above: Order Comment: Order Date: 02/29/24 Order Info: 0786-1 - CMP Order Info: [id number] - LIPID Order Date: 03/21/24 Order Info: 3016-3 - TSH Order Info: 7 - T4F Performed By: #### L 506.0400, L501.9520 #### [facility] [address] [place], [address] Testosterone, Serum Totalon 06-11-2024 Testosterone [Mass/Vol] 186.49 ng/dL Normal [facility] Comment on above: Order Comment: Order Date: 02/29/24 Order Info: 2986-8 - KYLE Result Comment: CENT RAL 90% REFERENCE RANGES MALE AGE <50 197.44 - 669.58 ng/dL MALE AGE > or = 50 187.72 - 684.19 ng/dL FEMALE AGE <50 8.38 - 35.01 ng/dL FEMALE AGE > or = 50 <7.00 - 35.92 ng/dL Effective as of 01/20/21 Performed By: #### L 100.0500, L509.3000, L500.4050, L500.4100 #### [facility] [address] [place], [address] Thyroid Stim Hormone (TSH)on 06-11-2024 TSH 2.480 uIU/mL Normal 0.358-3.740 [facility] Comment on above: Order Comment: Order Date: 02/29/24 Order Info: 0786-1 - CMP Order Info: [id number] - LIPID Order Date: 03/21/24 Order Info: 3016-3 - TSH Order Info: 3024-7 - T4F Performed By: #### L 506.0400, L501.9520 #### [facility] [address] [place], [address] Venous Duplex US, Unilateral on 06-06-2024 Venous Duplex US, Unilateral [facility] [address] [place] [address] Venous Duplex US, Unilateral 06/06/24 1014 MR#: [id number] Acct: [id number] Name: MARVIN MACHADO Rep #: [id number] : 1970 53 From: Jean Carlos Moore MD Attending Dr: Dr. Rufino Sheldon MD Status: REG CLI Ordering Dr: Rufino Sheldon MD Date: 06/06/24 Location: [facility] Sex: M C Admitted: Reason For Study: Right leg pain RIGHT LEFT GSV is normal. CFV is compressible, spontaneous, phasic, CFV is compressible, spontaneous, phasic, competent, and demonstrates normal competent and demonstrates normal augmentation. augmentation. FV is compressible, spontaneous, phasic, competent and demonstrates normal augmentation. POP V is compressible, spontaneous, phasic, competent and demonstrates normal augmentation. T/P Trunk is compressible. PTV is compressible. RT PerV is compressible. Procedure This is a venous duplex using B-mode, color flow and spectral Doppler. Exam performed in department. A preliminary report was called and/or faxed to Dr. Lim. VL/Venous Duplex US, Unilateral Interpretation Summary Deep veins of the right lower extremity are patent and compressible segmentally. There is no evidence of right lower extremity deep vein thrombosis. The right great saphenous vein appears patent and compressible segmentally. Ordering Physician: Rufino Sheldon Referring Physician: Rufino Sheldon Performed By: Ashley Silva RVT 06/07/241658 Date Jean Carlos Moore MD CC: Dr. Rufino Sheldon MD Date Dictated: 06/06/24 1014 Date Transcribed: 06/07/241658 Warehouse Packer: Signed Normal [facility] Testosterone, Total / Freeon 02-01-2024 TESTOSTER,FREE 18.87 ng/dL Normal 5.00-21.00 [facility] Comment on above: Order Comment: Order Date: 10/28/23 Order Info: 2986-8 - KYLE Performed By: #### L 509.3000, L501.1400 #### [facility] [address] [place], [place], [address] TESTOSTERONE, T 426 ng/dL Normal 264-916 [facility] Comment on above: Order Comment: Order Date: 10/28/23 Order Info: 2986-8 - KYLE Result Comment: Adul t male reference interval is based on a population of healthy nonobese males (BMI <30) between 19 and 39 years old. myke Gregory.al. JCEM 2017,102;1431-4769. PMID: [id number]. Performed By: #### L 509.3000, L501.1400 #### [facility] [address] [place], [place], [address] TESTOSTERONE,%F 4.43 High 1.50-4.20 [facility] Comment on above: Order Comment: Order Date: 10/28/23 Order Info: 2986-8 - KYLE Result Comment: Perf ormed at: [facility] [address] [id number] Press Assistant: Alejandro Wood PhD, Phone: [phone] Performed at: - [facility] [address] [id number] Press Assistant: Merline Valdovinos MD, Phone: [phone] Performed By: #### L 509.3000, L501.1400 #### [facility] [address] [place], [place], [address] Testosterone, Serum Totalon 12-19-2023 Testosterone [Mass/Vol] 53.43 ng/dL Normal [facility] Comment on above: Result Comment: CENT RAL 90% REFERENCE RANGES MALE AGE <50 197.44 - 669.58 ng/dL MALE AGE > or = 50 187.72 - 684.19 ng/dL FEMALE AGE <50 8.38 - 35.01 ng/dL FEMALE AGE > or = 50 <7.00 - 35.92 ng/dL Effective as of 01/20/21 Performed By: #### L 509.3000 #### [facility] [address] [place], [address] CRPon 11-07-2023 C-REACTIVE PROT 3.14 mg/L High 0.0-3.0 [facility] Comment on above: Order Comment: Order Date: 10/28/23 Order Info: 2986-8 - KYLE Result Comment: C-Re active Protein (CRP) provides useful information for the diagnosis, therapy and monitoring of inflammatory processes and associated diseases. For the evaluation of Relative Risk for Cardiovascular Disease, a High Sensitivity CRP (HSCRP) should be ordered. Performed By: #### L 509.3000, L501.1400 #### [facility] [address] [place], [place], [address] Testosterone, Serum Totalon 11-07-2023 Testosterone [Mass/Vol] 182.78 ng/dL Normal [facility] Comment on above: Order Comment: Order Date: 10/28/23 Order Info: 2986-8 - KYLE Result Comment: CENT RAL 90% REFERENCE RANGES MALE AGE <50 197.44 - 669.58 ng/dL MALE AGE > or = 50 187.72 - 684.19 ng/dL FEMALE AGE <50 8.38 - 35.01 ng/dL FEMALE AGE > or = 50 <7.00 - 35.92 ng/dL Effective as of 01/20/21 Performed By: #### L 509.3000, L501.1400 #### [facility] [address] [place], [place], [address] Uric Acidon 11-07-2023 URIC 7.5 mg/dL High 3.5-7.2 [facility] Comment on above: Order Comment: Order Date: 06/21/23 Order Info: 3084-1 - URIC Interface Comments: add on please Order Date: 07/11/23 Order Info: 23318-0 - CRP Comments: add on please Result Comment: The drugs N-Acetylcysteine and Metamizole may falsely depress this assay. Performed By: #### L 509.3000, L501.1400 #### [facility] [address] [place], [address] Erythrocyte sedimentation ra teOrdered By: Doron Sheldon on 07-13-2023 ESR (Bld) [Velocity] 23 mm/h 0-20 [facility] Absolute lymphocyte countOrd ered By: Jackson Ritchie on 07-06-2023 Lymphocytes Auto (Unsp spec) [#/Vol] 1.95 10*3/uL 0.83-4.51 [facility] Basophil percentageOrdered B y: Jackson Ritchie on 07-06-2023 Basophils/100 WBC (Bld) 0.8 % 0-1 [facility] Chloride [Moles/Vol] 108 mmol/L 98-107 [facility] Eosinophils/100 WBC (Bld) 1.5 % 0-5 [facility] Glucose [Mass/Vol] 94 mg/dL 74-106 [facility] Neutrophils (Bld) [#/Vol] 5.9 10*3/uL 2.0-7.7 [facility] Neutrophils/100 WBC (Bld) 66.4 % 47-70 [facility] Potassium [Moles/Vol] 4.3 mmol/L 3.5-5.1 [facility] Sodium [Moles/Vol] 139 mmol/L 136-145 [facility] WBC (Bld) [#/Vol] 8.9 10*3/uL 4.4-11.0 [facility] Blood erythrocytes count (nu mber/volume)Ordered By: Jackson Ritchie on 07-06-2023 RBC (Bld) [#/Vol] 5.54 10*6/uL 4.6-6.2 [facility] Blood hemoglobin measurement (mass/volume)Ordered By: Jackson Ritchie on 07-06-2023 Hemoglobin (Bld) [Mass/Vol] 15.6 g/dL 13.0-16.5 [facility] Blood lymphocytes/100 leukoc ytesOrdered By: Jackson Ritchie on 07-06-2023 Lymphocytes/100 WBC (Bld) 22.0 % 19-41 [facility] Blood monocytes/100 leukocyt esOrdered By: Jackson Ritchie on 07-06-2023 Monocytes/100 WBC (Bld) 8.7 % 0-10 [facility] Blood platelet mean volumeOr dered By: Jackson Ritchie on 07-06-2023 Platelet mean volume (Bld) [Entitic vol] 10.2 fL 6.2-12.0 [facility] Determination of erythrocyte mean corpuscular volume (MCV)Ordered By: Jackson Ritchie on 07-06-2023 MCV (RBC) [Entitic vol] 91.0 fL 80-94 [facility] Hematocrit Auto (Bld) [Volum e fraction]Ordered By: Jackson Ritchie on 07-06-2023 Hematocrit (Bld) [Volume fraction] 50.4 % 40-54 [facility] - Chemistry and C hemistry - challengeOrdered By: Jackson Ritchie on 07-06-2023 CO2 [Moles/Vol] 25.0 mmol/L 21.0-32.0 [facility] Urea nitrogen/Creatinine [Mass ratio] 10.7 mg/mg 10-20 [facility] - Hematology and Cell countsOrdered By: Jackson Ritchie on 07-06-2023 Erythrocyte distribution width (RBC) [Entitic vol] 43.1 fL 35.1-43.9 [facility] Erythrocyte distribution width (RBC) [Ratio] 13.0 % 11.6-14.6 [facility] Immature granulocytes/100 WBC (Bld) 0.600 % 0.0-0.9 [facility] Comment on above: IG% - Immature Granu locytes (promyelocytes, myelocytes and metamyelocytes) > 1% indicates that a LEFT SHIFT is Present. MCH (RBC) [Entitic mass] 28.2 pg 27.0-32.0 [facility] Nucleated RBC/100 WBC (Bld) [Ratio] 0 % 0-5 [facility] MCHC Auto (RBC) [Mass/Vol]Or dered By: Jackson Ritchie on 07-06-2023 MCHC (RBC) [Mass/Vol] 31.0 g/dL 32-36 [facility] No Panel InformationOrdered By: Jackson Ritchie on 07-06-2023 Estimated GFR (MDRD) Amer 89 mL/min >60 [facility] Comment on above: GFR Calc Estimated GFR (MDRD) Non-Af Amer 73 mL/min >60 [facility] Comment on above: Non- GFR Calc Platelets bldOrdered By: Luz Ritchie on 07-06-2023 Platelets (Bld) [#/Vol] 359 10*3/uL 150-450 [facility] Serum or plasma C reactive p rotein measurement (mass/volume)Ordered By: Jackson Ritchie on 07-06-2023 CRP [Mass/Vol] 67.40 mg/L 0.0-3.0 [facility] Comment on above: C-Reactive Protein ( CRP) provides useful information for thediagnosis, therapy and monitoring of inflammatory processesand associated diseases. For the evaluation of Relative Riskfor Cardiovascular Disease, a High Sensitivity CRP (HSCRP)should be ordered. Serum or plasma calcium yessica urement (mass/volume)Ordered By: Jackson Ritchie on 07-06-2023 Calcium [Mass/Vol] 9.0 mg/dL 8.5-10.1 [facility] Serum or plasma creatinine m easurement (mass/volume)Ordered By: Jackson Ritchie on 07-06-2023 Creatinine [Mass/Vol] 1.12 mg/dL 0.70-1.30 [facility] Comment on above: The validity of the calculated GFR & GFRAA in patients over 70 years has not been determined. Clinical correlation is essential. Serum or plasma urea nitroge n measurement (mass/volume)Ordered By: Jackson Ritchie on 07-06-2023 Urea nitrogen [Mass/Vol] 12 mg/dL 7-18 [facility] Serum or plasma uric acid me asurement (mass/volume)Ordered By: Jackson Ritchie on 07-06-2023 Urate [Mass/Vol] 4.7 mg/dL 3.5-7.2 [facility] Comment on above: The drugs N-Acetylcy steine and Metamizole may falsely depress this assay. Thin prep Papanicolaou smear with manual screeningOrdered By: Jackson Ritchie on 07-06-2023 Thin prep Papanicolaou smear with manual screening 6 5-15 [facility] Basophil percentageOrdered B y: Doron Sheldon on 06-17-2023 Testosterone [Mass/Vol] 273.68 ng/dL [facility] Comment on above: CENTRAL 90% REFERENC E RANGES MALE AGE <50 197.44 - 669.58 ng/dL MALE AGE > or = 50 187.72 - 684.19 ng/dL FEMALE AGE <50 8.38 - 35.01 ng/dL FEMALE AGE > or = 50 <7.00 - 35.92 ng/dL Effective as of 01/20/21 Serum or plasma uric acid me asurement (mass/volume)Ordered By: Doron Sheldon on 06-17-2023 Urate [Mass/Vol] 7.3 mg/dL 3.5-7.2 [facility] Comment on above: The drugs N-Acetylcy steine and Metamizole may falsely depress this assay. Basophil percentageOrdered B y: Doron Sheldon on 05-18-2023 Testosterone [Mass/Vol] 180 ng/dL 264-916 [facility] Comment on above: Adult male reference interval is based on a population ofhealthy nonobese males (BMI <30) between 19 and 39 yearsold. Colt et.al. JCEM 2017,102;6135-6072. PMID:[id number]. Free testosterone percentage Ordered By: Doron Sheldon on 05-18-2023 Testosterone Free/Testosterone.total [Mass fraction] 3.36 % 1.50-4.20 [facility] Comment on above: Performed at: [address] [id number] Director: Alejandro Wood PhD, Phone: [phone] at: - [facility] [id number] Director: Merline Valdovinos MD, Phone: [phone] Serum or plasma testosterone free measurement (mass/volume)Ordered By: Doron Sheldon on 05-18-2023 Testosterone Free [Mass/Vol] 6.05 ng/dL 5.00-21.00 [facility] Serum or plasma uric acid me asurement (mass/volume)Ordered By: Doron Sheldon on 05-18-2023 Urate [Mass/Vol] 8.8 mg/dL 3.5-7.2 [facility] Comment on above: The drugs N-Acetylcy steine and Metamizole may falsely depress this assay. Whole blood hemoglobin A1c/t otal hemoglobin ratio (mass fraction)Ordered By: Doron Sheldon on 05-18-2023 HbA1c (Bld) [Mass fraction] 5.7 % 3.8-5.6 [facility] Comment on above: Normal < 5.7 % Predi abetic 5.7 - 6.4 % Diabetic >or= 6.5 % Please note range changes. Final Surgical Pathology Rep estelita 08-18-2021 Final Surgical Pathology Report . Pathology Reports Accession: Collected Date/Time: Received Date/Time: Pathologist: [id number] 08/17/2021 09:23 EST 08/17/2021 13:21 EST MD JARED RIVERA Final Surgical Pathology Report DIAGNOSIS: A) DESCENDING COLON, BIOPSY - HYPERPLASTIC POLYP. B) RECTUM, BIOPSY - HYPERPLASTIC POLYP. COMMENT: Annabella [id number] CLINICAL INFORMATION: Procedure: COLONOSCOPY WITH MULTIPLE POLYPECTOMIES Preoperative diagnosis: SCREENING Postoperative diagnosis: SAME SPECIMEN: A DESCENDING COLON POLYP B RECTAL POLYPS GROSS DESCRIPTION: A. Received in formalin, labeled with the patients name, Case #[id number], and descending colon polyp 4 kearney soft tissue fragments rated from 0.1 to 0.3 cm. TS -1 B. Received in formalin labeled rectum polyps is 1 kearney-pink polyp measuring 0.3 cm. TS -1. Dictated by ARIELLE WU MICROSCOPIC DESCRIPTION: Slides reviewed. Electronically Signed by Pathology Report verified by [facility] Electronically signed by JARED RIVERA MD Sign out Date: 08/18/2021 15:17 Performing Lab: [facility], [address] [place] [address] ([place]) Vital Signs Date Time Vital Sign Value Performing Clinician Facility 01-17-2025 15:43-0400 Body height 173.8 cm Bean Rosas MD, PhD Work Phone: [facility] 01-17-2025 15:43-0400 Body mass index (BMI) [Ratio] 42.35 kg/m2 Bean Rosas MD, PhD Work Phone: [facility] 01-17-2025 15:43-0400 Body temperature 98.1 [degF] Bean Rosas MD, PhD Work Phone: [facility] 01-17-2025 15:43-0400 Body weight 127.91 kg Bean Rosas MD, PhD Work Phone: [facility] 01-17-2025 15:43-0400 Diastolic blood pressure 89 mm[Hg] Bean Rosas MD, PhD Work Phone: [facility] 01-17-2025 15:43-0400 Heart rate 64 /min Bean Rosas MD, PhD Work Phone: [facility] 01-17-2025 15:43-0400 Respiratory rate 16 /min Bean Rosas MD, PhD Work Phone: [facility] 01-17-2025 15:43-0400 Systolic blood pressure 148 mm[Hg] Bean Rosas MD, PhD Work Phone: [facility] 01-17-2025 15:04-0400 Body temperature 97.7 [degF] Nurse [facility] Work Phone: [facility] 01-17-2025 15:04-0400 Diastolic blood pressure 90 mm[Hg] Nurse [facility] Work Phone: [facility] 01-17-2025 15:04-0400 Heart rate 71 /min Nurse [facility] Work Phone: [facility] 01-17-2025 15:04-0400 Respiratory rate 16 /min Nurse [facility] Work Phone: [facility] 01-17-2025 15:04-0400 SaO2% (BldA) [Mass fraction] 97 % Nurse [facility] Work Phone: [facility] [facility] 01-17-2025 15:04-0400 Systolic blood pressure 153 mm[Hg] Nurse [facility] Work Phone: [facility] 12-04-2024 15:09-0400 Body temperature 97.59 [degF] Nurse [facility] Work Phone: [facility] 12-04-2024 15:09-0400 Diastolic blood pressure 78 mm[Hg] Nurse [facility] Work Phone: [facility] 12-04-2024 15:09-0400 Heart rate 81 /min Nurse [facility] Work Phone: [facility] 12-04-2024 15:09-0400 Respiratory rate 20 /min Nurse [facility] Work Phone: [facility] 12-04-2024 15:09-0400 SaO2% (BldA) [Mass fraction] 98 % Nurse [facility] Work Phone: [facility] 12-04-2024 15:09-0400 Systolic blood pressure 137 mm[Hg] Nurse [facility] Work Phone: [facility] 11-08-2024 14:57-0400 Body temperature 97.5 [degF] Nurse [facility] Work Phone: [facility] 11-08-2024 14:57-0400 Diastolic blood pressure 94 mm[Hg] Nurse [facility] Work Phone: [facility] 11-08-2024 14:57-0400 Heart rate 71 /min Nurse [facility] Work Phone: [facility] 11-08-2024 14:57-0400 Respiratory rate 18 /min Nurse [facility] Work Phone: [facility] 11-08-2024 14:57-0400 SaO2% (BldA) [Mass fraction] 100 % Nurse [facility] Work Phone: [facility] 11-08-2024 14:57-0400 Systolic blood pressure 165 mm[Hg] Nurse [facility] Work Phone: [facility] 11-08-2024 14:19-0400 Body height 175.3 cm Bean Rosas MD, PhD Work Phone: [facility] 11-08-2024 14:06-0400 Body mass index (BMI) [Ratio] 42.42 kg/m2 Bean Rosas MD, PhD Work Phone: [facility] 11-08-2024 14:06-0400 Body temperature 98.1 [degF] Bean Rosas MD, PhD Work Phone: [facility] 11-08-2024 14:06-0400 Body weight 130.3 kg Bean Rosas MD, PhD Work Phone: [facility] 11-08-2024 14:06-0400 Diastolic blood pressure 99 mm[Hg] Bean Rosas MD, PhD Work Phone: [facility] 11-08-2024 14:06-0400 Heart rate 64 /min Bean Rosas MD, PhD Work Phone: [facility] 11-08-2024 14:06-0400 Systolic blood pressure 166 mm[Hg] Bean Rosas MD, PhD Work Phone: [facility] 10-04-2024 15:35-0400 Body height 175.3 cm Bean Rosas MD, PhD Work Phone: [facility] 10-04-2024 15:35-0400 Body mass index (BMI) [Ratio] 42.36 kg/m2 Bean Rosas MD, PhD Work Phone: [facility] 10-04-2024 15:35-0400 Body temperature 97.3 [degF] Bean Rosas MD, PhD Work Phone: [facility] 10-04-2024 15:35-0400 Body weight 130.18 kg Bean Rosas MD, PhD Work Phone: [facility] 10-04-2024 15:35-0400 Diastolic blood pressure 94 mm[Hg] Bena Rosas MD, PhD Work Phone: [facility] 10-04-2024 15:35-0400 Heart rate 72 /min Bean Rosas MD, PhD Work Phone: [facility] 10-04-2024 15:35-0400 Systolic blood pressure 148 mm[Hg] Bean Rosas MD, PhD Work Phone: [facility] 10-04-2024 15:08-0400 Body temperature 97.3 [degF] Nurse [facility] Work Phone: [facility] 10-04-2024 15:08-0400 Diastolic blood pressure 94 mm[Hg] Nurse [facility] Work Phone: [facility] 10-04-2024 15:08-0400 Heart rate 72 /min Nurse [facility] Work Phone: [facility] 10-04-2024 15:08-0400 Respiratory rate 16 /min Nurse [facility] Work Phone: [facility] 10-04-2024 15:08-0400 SaO2% (BldA) [Mass fraction] 96 % Nurse [facility] Work Phone: [facility] 10-04-2024 15:08-0400 Systolic blood pressure 148 mm[Hg] Nurse [facility] Work Phone: [facility] 09-06-2024 16:04-0400 Body temperature 97.3 [degF] Nurse [facility] Work Phone: [facility] 09-06-2024 16:04-0400 Diastolic blood pressure 85 mm[Hg] Nurse [facility] Work Phone: [facility] 09-06-2024 16:04-0400 Heart rate 61 /min Nurse [facility] Work Phone: [facility] 09-06-2024 16:04-0400 Respiratory rate 14 /min Nurse [facility] Work Phone: [facility] 09-06-2024 16:04-0400 SaO2% (BldA) [Mass fraction] 96 % Nurse [facility] Work Phone: [facility] 09-06-2024 16:04-0400 Systolic blood pressure 151 mm[Hg] Nurse [facility] Work Phone: [facility] 09-06-2024 15:19-0400 Body height 175.3 cm Bean Rosas MD, PhD Work Phone: [facility] 09-06-2024 15:19-0400 Body mass index (BMI) [Ratio] 42.45 kg/m2 Bean Rosas MD, PhD Work Phone: [facility] 09-06-2024 15:19-0400 Body temperature 97.3 [degF] Bean Rosas MD, PhD Work Phone: [facility] 09-06-2024 15:19-0400 Body weight 130.4 kg Bean Rosas MD, PhD Work Phone: [facility] 09-06-2024 15:19-0400 Diastolic blood pressure 96 mm[Hg] Bean Rosas MD, PhD Work Phone: [facility] 09-06-2024 15:19-0400 Heart rate 60 /min Bean Rosas MD, PhD Work Phone: [facility] 09-06-2024 15:19-0400 Respiratory rate 18 /min Bean Rosas MD, PhD Work Phone: [facility] 09-06-2024 15:19-0400 SaO2% (BldA) [Mass fraction] 98 % Bean Rosas MD, PhD Work Phone: [facility] 09-06-2024 15:19-0400 Systolic blood pressure 155 mm[Hg] Bean Rosas MD, PhD Work Phone: [facility] 08-21-2024 16:15-0500 Body temperature 97.2 [degF] Nurse [facility] Work Phone: [facility] 08-21-2024 16:15-0500 Diastolic blood pressure 83 mm[Hg] Nurse [facility] Work Phone: [facility] 08-21-2024 16:15-0500 Heart rate 69 /min Nurse [facility] Work Phone: [facility] 08-21-2024 16:15-0500 Respiratory rate 16 /min Nurse [facility] Work Phone: [facility] 08-21-2024 16:15-0500 SaO2% (BldA) [Mass fraction] 94 % Nurse [facility] Work Phone: [facility] 08-21-2024 16:15-0500 Systolic blood pressure 149 mm[Hg] Nurse [facility] Work Phone: [facility] 08-21-2024 16:14-0500 Body height 175.3 cm Nurse [facility] Work Phone: [facility] 08-21-2024 16:14-0500 Body mass index (BMI) [Ratio] 43.63 kg/m2 Nurse [facility] Work Phone: [facility] 08-21-2024 16:14-0500 Body weight 134 kg Nurse [facility] Work Phone: [facility] 08-21-2024 14:15-0500 Body height 175.3 cm Bean Rosas MD, PhD Work Phone: [facility] 08-21-2024 14:15-0500 Body mass index (BMI) [Ratio] 43.63 kg/m2 Bean Rosas MD, PhD Work Phone: [facility] 08-21-2024 14:15-0500 Body temperature 98.01 [degF] Bean Rosas MD, PhD Work Phone: [facility] 08-21-2024 14:15-0500 Body weight 134 kg Bean Rosas MD, PhD Work Phone: [facility] 08-21-2024 14:15-0500 Diastolic blood pressure 81 mm[Hg] Bean Rosas MD, PhD Work Phone: [facility] 08-21-2024 14:15-0500 Heart rate 60 /min Bean Rosas MD, PhD Work Phone: [facility] 08-21-2024 14:15-0500 Systolic blood pressure 155 mm[Hg] Bean Rosas MD, PhD Work Phone: [facility] 08-17-2021 09:49-0500 Diastolic Blood Pressure NBP [address] ALEJANDRO MERCADO MD [facility] 08-17-2021 09:49-0500 Heart rate 62 /min DR ALEJANDRO MERCADO MD [facility] 08-17-2021 09:49-0500 Systolic Blood Pressure NBP [address] ALEJANDRO MERCADO MD [facility] 08-17-2021 09:40-0500 Diastolic Blood Pressure NBP [address] ALEJANDRO MERCADO MD [facility] 08-17-2021 09:40-0500 Heart rate 69 /min DR ALEJANDRO MERCADO MD [facility] 08-17-2021 09:40-0500 Systolic Blood Pressure NBP [address] ALEJANDRO MERCADO MD [facility] 08-17-2021 09:33-0500 Diastolic Blood Pressure NBP [address] ALEJANDRO MERCADO MD [facility] 08-17-2021 09:33-0500 Heart rate 67 /min DR ALEJANDRO MERCADO MD [facility] 08-17-2021 09:33-0500 Systolic Blood Pressure NBP [address] ALEJANDRO MERCADO MD [facility] 08-17-2021 09:29-0500 Body temperature 96.62 [degF] DR ALEJANDRO MERCADO MD [facility] 08-17-2021 09:25-0500 Respiratory rate 17 /min DR ALEJANDRO MERCADO MD [facility] 08-17-2021 09:20-0500 Respiratory rate 18 /min DR ALEJANDRO MERCADO MD [facility] 08-17-2021 09:15-0500 Respiratory rate 18 /min DR ALEJANDRO MERCADO MD [facility] 08-17-2021 08:54-0500 Body height 175.[address] ALEJANDRO MERCADO MD [facility] 08-17-2021 08:54-0500 Body temperature 98.06 [degF] DR ALEJANDRO MERCADO MD [facility] 08-17-2021 08:54-0500 Body weight 131.[address] ALEJANDRO MERCADO MD [facility] 08-17-2021 08:54-0500 diastolic 88 mm[Hg] DR ALEJANDRO MERCADO MD [facility] 08-17-2021 08:54-0500 Heart rate 65 /min DR ALEJANDRO MERCADO MD [facility] 08-17-2021 08:54-0500 systolic 137 mm[Hg] DR ALEJANDRO MERCADO MD [facility] Encounters Encounter Date Encounter Type Care Provider Facility Start: 01-17-2025 End: 01-17-2025 Patient entered into trial Bean Rosas MD, PhD Work Phone: [facility] Work Phone: Start: 01-17-2025 End: 01-17-2025 Nursing evaluation of patient and report Nurse [facility] Work Phone: Clinical Research Comment on above: Examination of parti cipant in clinical trial (Primary Dx) Start: 01-17-2025 End: 01-17-2025 Patient encounter procedure Nurse [facility] Work Phone: [facility] Comment on above: Research study patie nt (Primary Dx) Start: 01-17-2025 End: 01-17-2025 ambulatory [facility] Facility:[facility] Start: 12-06-2024 End: 01-25-2025 Chart abstracting Moises Reyna Research Coordinator Work Phone: Rheumatology Start: 12-04-2024 End: 12-04-2024 Patient entered into trial Bean Rosas MD, PhD Work Phone: [facility] Start: 12-04-2024 Encounter for examination for normal comparison and control in clinical research program [facility] Start: 12-04-2024 End: 12-04-2024 ambulatory [facility] Facility:[facility] Start: 12-04-2024 End: 12-04-2024 Nursing evaluation of patient and report Nurse [facility] Work Phone: Clinical Research Comment on above: Examination of parti cipant or control in clinical research (Primary Dx) Start: 12-04-2024 End: 12-04-2024 Patient encounter procedure Nurse [facility] Work Phone: [facility] Work Phone: Comment on above: Idiopathic gout, uns pecified chronicity, unspecified site (Primary Dx); Research study patient Start: 11-08-2024 End: 11-08-2024 Nursing evaluation of patient and report Nurse [facility] Work Phone: Clinical Research Comment on above: Examination of parti cipant in clinical trial (Primary Dx) Start: 11-08-2024 End: 11-08-2024 Patient encounter procedure Bean Rosas MD, PhD Work Phone: Rheumatology Comment on above: Research study patie nt (Primary Dx); Idiopathic gout, unspecified chronicity, unspecified site Start: 11-08-2024 End: 11-08-2024 Patient entered into trial Bean Rosas MD, PhD Work Phone: [facility] Work Phone: Start: 11-08-2024 End: 11-08-2024 ambulatory [facility] Facility:[facility] Start: 10-04-2024 End: 10-04-2024 ambulatory [facility] Facility:[facility] Start: 10-04-2024 End: 10-04-2024 Nursing evaluation of patient and report Nurse [facility] Work Phone: Clinical Research Comment on above: Examination of parti cipant in clinical trial (Primary Dx) Start: 10-04-2024 End: 10-04-2024 Patient encounter procedure Nurse [facility] Work Phone: [facility] Comment on above: Idiopathic gout, uns pecified chronicity, unspecified site (Primary Dx) Start: 09-07-2024 End: 09-17-2024 Telephone encounter Bean Rosas MD, PhD Work Phone: Rheumatology Comment on above: Received [facility] Start: 09-06-2024 End: 09-06-2024 Nursing evaluation of patient and report Nurse [facility] Work Phone: Clinical Research Comment on above: Examination of parti cipant in clinical trial (Primary Dx) Start: 09-06-2024 End: 09-06-2024 ambulatory [facility] Facility:[facility] Start: 09-06-2024 End: 09-06-2024 Patient encounter procedure Bean Rosas MD, PhD Work Phone: Rheumatology Comment on above: Research exam (Prima ry Dx) Start: 09-06-2024 End: 09-06-2024 Patient encounter status Bean Rosas MD, PhD Work Phone: [facility] Work Phone: Start: 08-27-2024 End: 08-27-2024 Orders Only Bean Rosas MD, PhD Work Phone: Rheumatology Start: 08-24-2024 End: 08-24-2024 ambulatory [facility] Facility:[facility] Start: 08-24-2024 End: 08-24-2024 Patient encounter procedure Us 1 Work Phone: [facility] Start: 08-24-2024 End: 08-24-2024 Subsequent hospital visit by physician [facility] Work Phone: Radiology Comment on above: Examination of parti cipant or control in clinical research [Z00.6] Start: 08-22-2024 End: 08-22-2024 Orders Only Moises Reyna Research Coordinator Work Phone: Rheumatology Comment on above: Examination of parti cipant or control in clinical research (Primary Dx) Start: 08-22-2024 End: 08-22-2024 Patient encounter procedure Moises Reyna Research Coordinator Work Phone: [facility] Work Phone: Start: 08-21-2024 End: 08-21-2024 Nursing evaluation of patient and report Nurse [facility] Work Phone: Clinical Research Comment on above: Examination of parti cipant in clinical trial (Primary Dx); Examination of participant or control in clinical research Start: 08-21-2024 End: 08-21-2024 ambulatory [facility] Facility:[facility] Start: 08-21-2024 End: 08-21-2024 Patient encounter procedure Nurse [facility] Work Phone: [facility] Comment on above: Research study stephanie nt (Primary Dx) Start: 08-21-2024 End: 08-21-2024 Patient entered into trial Bean Rosas MD, PhD Work Phone: [facility] Work Phone: Start: 08-07-2024 ambulatory [facility] Start: 06-11-2024 End: 06-11-2024 ambulatory [facility] Facility:[facility] Start: 06-06-2024 ambulatory [facility] Faci lity:[facility] Start: 06-06-2024 End: 06-06-2024 ambulatory [facility] Facility:[facility] Start: 01-27-2024 End: 01-27-2024 ambulatory [facility] Facility:[facility] Start: 12-19-2023 End: 12-19-2023 ambulatory [facility] Facility:[facility] Start: 11-07-2023 End: 11-07-2023 ambulatory [facility] Facility:[facility] Start: 07-13-2023 Patient encounter procedure [facility] Start: 07-11-2023 End: 07-11-2023 ambulatory [facility] Work Phone: Start: 07-11-2023 End: 07-11-2023 Patient encounter procedure [facility] Work Phone: Start: 07-06-2023 End: 07-06-2023 ambulatory [facility] Work Phone: Start: 07-06-2023 End: 07-06-2023 Patient encounter procedure [facility] Start: 06-17-2023 End: 06-17-2023 ambulatory [facility] Work Phone: Start: 06-17-2023 End: 06-17-2023 Patient encounter procedure [facility] Start: 05-18-2023 End: 05-18-2023 ambulatory [facility] Work Phone: Start: 05-18-2023 End: 05-18-2023 Patient encounter procedure [facility] Start: 08-17-2021 End: 08-17-[address] ALEJANDRO MERCADO MD [facility] Procedures Date Procedure Procedure Detail Performing Clinician Start: 07-11-2023 Plain X-ray of toe Start: 07-11-2023 Plain x-ray of wrist Start: 08-19-2015 Lipid 1996 panel - S gracy or Plasma Nurse [facility] Work Phone: Start: 08-31-2010 Colonoscopy Nurse [facility] Work Phone: Arthroscopy of shoulder DR Kamryn MERCADO MD Colonoscopy DR ALEJANDRO BAEZ MD Plan of Treatment Date Care Activity Detail Author Start: 03-21-2034 Urine microalbumin profile [facility] Start: 03-21-2025 End: 03-21-2025 Nursing evaluation of patient and report 03/21/2025 3:00 PM EDT Nurse Visit Clinical Research [address] [place] [id number] [facility], Nurse [address] [place] [address] IRB#[id number] Alison Arthrosi Gout; Visit M6; subj#[id number] Clinical Research Comment on above: IRB#[id number] Alison Christina rthrosi Gout; Visit M6; subj#[id number] Start: 03-05-2025 End: 03-05-2025 Patient encounter procedure 03/05/2025 3:30 PM EDT Office Visit Rheumatology [address] [address] [place] [address] [place] [id number] add on sallie de leon Rheumatology Comment on above: add on per moises Start: 03-05-2025 End: 03-05-2025 Nursing evaluation of patient and report 03/05/2025 3:00 PM EDT Nurse Visit Clinical Research [address] [place] [id number] [facility], Nurse [address] [place] [address] IRB#[id number] Alison Arthrosi Gout; Visit M6; subj#[id number] Clinical Research Comment on above: IRB#[id number] Alison Christina rthrosi Gout; Visit M6; subj#[id number] Start: 02-25-2025 Influenza vaccination [facility] Start: 12-04-2024 End: 12-04-2024 Patient encounter procedure 12/04/2024 4:00 PM EDT Office Visit Rheumatology [address] [id number] Bean Rosas MD, PhD [address] [place] [address] add on sallie de leon Rheumatology Comment on above: add on per moises Start: 12-04-2024 End: 12-04-2024 Nursing evaluation of patient and report 12/04/2024 3:00 PM EDT Nurse Visit Clinical Research [address] [place], [place] [id number] [facility], Nurse [address] [place] [address] IRB#[id number] Alison Arthrosi Gout; Visit M3; subj#[id number] Clinical Research Comment on above: IRB#[id number] Alison Christina rthrosi Gout; Visit M3; subj#[id number] Start: 12-04-2024 End: 03-05-2025 MISC SEND OUT TST 1 MISC SEND OUT TST 1 Lab Routine Examination of participant or control in clinical research Expected: 12/04/2024, Expires: 03/05/2025 [facility] Work Phone: Comment on above: Expected: 12/04/2024 , Expires: 03/05/2025 Start: 11-09-2024 End: 11-09-2024 ambulatory 11/09/2024 3:30 PM EDT Results Only Carina Garciawn [facility] [address] [place] [address] [place] [facility] Start: 11-08-2024 End: 11-08-2024 Nursing evaluation of patient and report 11/08/2024 3:00 PM EDT Nurse Visit Clinical Research [address] [place] [id number] [facility], Nurse [address] [place] [address] IRB#[id number] Alison Arthrosi Gout; Visit M2; subj#[id number] Clinical Research Comment on above: IRB#[id number] Alison Sanford rthrosi Gout; Visit M2; subj#[id number] Start: 11-08-2024 End: 11-08-2024 Patient encounter procedure 11/08/2024 2:30 PM EDT Office Visit Rheumatology [address] [address] Bean Rosas MD, PhD [address] [place] [address] add on per moises Rheumatology Comment on above: add on per moises Start: 11-08-2024 End: 02-07-2025 MISC SEND OUT TST 1 MISC SEND OUT TST 1 Lab Routine Examination of participant in clinical trial Expected: 11/08/2024, Expires: 02/07/2025 [facility] Work Phone: Comment on above: Expected: 11/08/2024 , Expires: 02/07/2025 Start: 10-04-2024 End: 10-04-2024 Patient encounter procedure 10/04/2024 4:00 PM EDT Office Visit Rheumatology [address] [address] Bean Rosas MD, PhD [address] [place] [address] add on per moises Rheumatology Comment on above: add on per moises Start: 10-04-2024 End: 10-04-2024 Nursing evaluation of patient and report 10/04/2024 3:00 PM EDT Nurse Visit Clinical Research [address] [place] [address] [facility], Nurse [address] [place] [address] IRB#[id number] Alison Arthrosi Gout; Visit M1; subj#[id number] Clinical Research Comment on above: IRB#[id number] Alison Christina rthrosi Gout; Visit M1; subj#[id number] Start: 10-04-2024 End: 01-03-2025 MISC SEND OUT TST 1 MISC SEND OUT TST 1 Lab Routine Examination of participant in clinical trial Expected: 10/04/2024, Expires: 01/03/2025 [facility] Work Phone: Comment on above: Expected: 10/04/2024 , Expires: 01/03/2025 Start: 09-06-2024 End: 12-06-2024 MISC SEND OUT TST 1 MISC SEND OUT TST 1 Lab Routine Examination of participant in clinical trial Expected: 09/06/2024, Expires: 12/06/2024 [facility] Work Phone: Comment on above: Expected: 09/06/2024 , Expires: 12/06/2024 Start: 08-24-2024 End: 08-24-2024 Patient encounter procedure 08/24/2024 3:15 PM EST Appointment Radiology [address] [place], [place] [address] US KIDNEY/BLADDER Radiology Comment on above: US KIDNEY/BLADDER Start: 08-21-2024 End: 11-20-2024 MISC SEND OUT TST 1 MISC SEND OUT TST 1 Lab Routine Examination of participant or control in clinical research Expected: 08/21/2024, Expires: 11/20/2024 [facility] Work Phone: Comment on above: Expected: 08/21/2024 , Expires: 11/20/2024 Start: 02-26-2024 Covid-19 Vaccine ( season) Covid-19 Vaccine ( season) [facility] Start: 02-26-2024 Influenza vaccination Influenza Vacc ine (#1) [facility] Start: 07-11-2023 Plain X-ray of toe Toe(s) Min 2 View s [facility] Start: 07-11-2023 Plain x-ray of wrist Wrist min 3 Vie ws [facility] Start: 2022 Pneumococcal Vaccine : 50+ (1 of 1 - PCV) Pneumococcal Vaccine: 50+ (1 of 1 - PCV) [facility] Start: 2022 Shingrix Vaccine (1 of 2) Shingrix Vaccine (1 of 2) [facility] Start: 08-19-2020 Lipid panel Lipid Screening [facility] Start: 2017 Diabetes Screening Diabetes Screenin g [facility] Start: 2017 Screening for malign ant neoplasm of colon [facility] Start: 1991 Hepatitis B Vaccine (1 of 3 - 19+ 3-dose series) Hepatitis B Vaccine (1 of 3 - 19+ 3-dose series) [facility] Start: 1990 Anxiety Screening Anxiety Screening [facility] Start: 1990 Depression Screening Depression Scre ening [facility] Start: 1990 Hepatitis C screening Hepatitis C Sc reening [facility] Start: 1990 HIV screening HIV Screening [facility] C reactive protein [Mass/volume] in Serum or Plasma [facility] End: 08-21-2025 ECG COMPLETE ECG COMPLETE ECG Routine Examination of participant in clinical trial 1 Occurrences starting 08/21/2024 until 08/21/2025 [facility] Comment on above: 1 Occurrences starti ng 08/21/2024 until 08/21/2025 Erythrocyte sedimentation rate [facility] End: 09-21-2025 US Kidney - bilateral and Urinary bladder US KIDNEY/BLADDER Radiology Routine Examination of participant or control in clinical research 1 Occurrences starting 08/22/2024 until 09/21/2025 [facility] Work Phone: Comment on above: 1 Occurrences starti ng 08/22/2024 until 09/21/2025 US Kidney - bilatera l and Urinary bladder US KIDNEY/BLADDER Radiology Routine Examination of participant or control in clinical research 08/24/2024 3:27 PM EST [facility] Work Phone: Immunizations Immunization Date Immunization Notes Care Provider Jarrod carbajla 03-21-2024 tetanus toxoid, redu shashank diphtheria toxoid, and acellular pertussis vaccine, adsorbed Nurse [facility] Work Phone: [facility] 04-27-2022 influenza, seasonal, injectable Nurse [facility] Work Phone: [facility] 04-27-2022 influenza virus vacc ine, unspecified formulation Nurse [facility] Work Phone: [facility] 04-27-2021 COVID-19 original vaccine, full dose, monovalent (MODERNA) Nurse [facility] Work Phone: [facility] 04-06-2021 influenza, seasonal, injectable Nurse [facility] Work Phone: [facility] 04-29-2015 tetanus and diphther ia toxoids, adsorbed, preservative free, for adult use (5 Lf of tetanus toxoid and 2 Lf of diphtheria toxoid) Nurse [facility] Work Phone: [facility] 04-29-2015 tetanus toxoid, redu shashank diphtheria toxoid, and acellular pertussis vaccine, adsorbed Nurse [facility] Work Phone: [facility] 03-30-2010 influenza virus vacc ine, unspecified formulation Nurse [facility] Work Phone: [facility] Payers Date Payer Category Payer Private Health Insurance O S [id number] 2023 Self-pay [id number] 2023 Unknown [id number] Unknown [id number] Unknown [id number] Unknown [id number] Unknown [id number] Unknown [id number] Unknown [id number] Unknown [id number] Social History Date Type Detail Facility Start: 08-17-2021 Never smoked t obacco (finding) [facility] Start: 1970 Sex Assigned At Male A [facility] Start: 08-21-2024 [facility] Start: 10-01-1986 End: 10-01-2001 History of tobacco use Current smoker [facility] Start: 10-01-1986 End: 10-01-2001 History of tobacco use Cigarette Smoker [facility] Start: 08-21-2024 End: 09-30-2024 Cigarettes smoked current (pack per day) - Reported 1 [facility] Start: 08-21-2024 Tobacco use and exposure Former smokeless tobacco user [facility] History of tobacco use Chews Tobacco [facility] Start: 08-21-2024 End: 11-08-2024 Alcoholic beverage intake Current drinker of alcohol (finding) [facility] Start: 08-21-2024 End: 09-30-2024 Tobacco use panel [facility] National Score (1-10 0), lower number is lower risk 35 [facility] Start: 08-21-2024 Tobacco Comment Patient chewed and smoked [facility] Start: 1970 Sex assigned at Not on file [facility] Functional Status Date Assessment Result Facility 08-02-2014 Are you deaf, or do you have serious difficulty hearing No 08/02/2014 4:04 PM Armida Calvillo LPN No [facility] 08-02-2014 Are you blind, or do you have serious difficulty seeing, even when wearing glasses No 08/02/2014 4:04 PM Armida Calvillo LPN No [facility] 08-02-2014 Do you have serious difficulty walking or climbing stairs No 08/02/2014 4:04 PM Armida Calvillo LUDIVINA No [facility] 08-02-2014 Do you have difficul ty dressing or bathing No 08/02/2014 4:04 PM Armida Calvillo LUDIVINA No [facility] 08-02-2014 Because of a physica l, mental, or emotional condition, do you have difficulty doing errands alone such as visiting a physician's office or shopping No 08/02/2014 4:04 PM Murray Calvillosa FLORENCE No [facility] Mental Status Date Assessment Result Facility 08-02-2014 Because of a physica l, mental, or emotional condition, do you have serious difficulty concentrating, remembering, or making decisions No 08/02/2014 4:04 PM SANDY Clark Armida [place]OR[place] No [facility] Clinical Notes 08-17-2021 to 01-25-2025 Moises Reyna, Research Coordinator - 01/25/2025 12:41 PM EDTPatient InstructionsBean Rosas MD, PhD - 01/17/2025 3:56 PM Dayanna Ball RN - 01/17/2025 8:08 AM EDTPatient Instructions Note Date & Type Note Facility 01-25-2025 Note HNO ID: [id number] Author: MOISES REYNA Research Coordinator Service: ? Author Type: Research Type: Progress Notes Filed: 01/25/2025 12:46 Note Text: Clinical Research Study - Rheumatic and Immunologic Diseases IRB#[id number] Protocol Title: A Phase 3 Randomized, Double-blind, Multi-center, Placebo-controlled Study to Evaluate the Efficacy and Safety of AR882 in Participants with Gout PI: Dr. Bean Rosas MD, PhD Month 3 IP dispensed and shipped to patients address listed in [facility] on 12/06/2024 The following bottles were dispensed: [id number], 50mg, 75mg or matching placebo 30 capsules [id number], 50mg, 75mg or matching placebo 30 capsules [id number], 50mg, 75mg or matching placebo 30 capsules Confirmed patient received shipment on 12/10/2024 Moises Reyna Research Coordinator II Rheumatic and Immunologic diseases [phone] [facility] 01-25-2025 History of Presen t illness Narrative Clinical Research Study - Rheumatic and Immunologic Diseases IRB#[id number] Protocol Title: A Phase 3 Randomized, Double-blind, Multi-center, Placebo-controlled Study to Evaluate the Efficacy and Safety of AR882 in Participants with Gout PI: Dr. Bean Rosas MD, PhD Month 3 IP dispensed and shipped to patients address listed in [facility] on 12/06/2024 The following bottles were dispensed: [id number], 50mg, 75mg or matching placebo 30 capsules [id number], 50mg, 75mg or matching placebo 30 capsules [id number], 50mg, 75mg or matching placebo 30 capsules Confirmed patient received shipment on 12/10/2024 Moises Reyna Research Coordinator II Rheumatic and Immunologic diseases [phone] documented in this encounter [facility] 01-17-2025 Instructions Bean Rosas MD, PhD - 01/17/2025 4:06 PM EDT check the dose of enalapril (5mg pills) that you are taking if taking 1; increase to 2 pills once a day if taking 2 - increase to 3 and let your primary doc know and you can get a rx for a larger strength pill in order to take fewer pills stop the colchicine documented in this encounter [facility] 01-17-2025 Note HNO ID: [id number] Author: MOISES REYNA, Research Coordinator Service: ? Author Type: Physician Type: Progress Notes Filed: 01/18/2025 10:22 Note Text: Clinical Research Study - Rheumatic and Immunologic Diseases IRB#[id number] Protocol Title: A Phase 3 Randomized, Double-blind, Multi-center, Placebo-controlled Study to Evaluate the Efficacy and Safety of AR882 in Participants with Gout PI: Dr. Bean Rosas MD, PhD no flares no GI issues still taking colchicine as there was an uncertain flare from knee pain and he wanted to take colchicine longer to be certain no tender/sw joints possible tophus left DIP area of the 1st toe non tender (recognized from the outset) MONTH 4.5: Vitals: Height: 173.8 cm Weight: 282 lbs BMI: 42.35 Systolic BP:148 Diastolic BP: 89 Pulse Rate:64 Respiratory Rate:16 Body Temperature: 36.7 Abbreviated Physical Exam: Cardiovascular: Normal Abnormal, description of abnormality: Abdomen: Normal Abnormal, description of abnormality: Skin: Normal Abnormal, description of abnormality: Respiratory: Normal Abnormal, description of abnormality: Impression: Will the subject continue on study drug? yes Adverse Events (with dates)? none Date of stopping colchicine: 01/18/25 (last took 01/17) HTN remains - he is not certain if his enalapril dose changed.. i advised to f/up w his primary but in meantime: check the dose of enalapril (5mg pills) that you are taking if taking 1; increase to 2 pills once a day if taking 2 - increase to 3 and let your primary doc know and you can get a rx for a larger strength pill in order to take fewer pills stop the colchicine Bean Rosas MD, PhD [facility] 01-17-2025 History of Presen t illness Narrative Clinical Research Study - Rheumatic and Immunologic Diseases IRB#[id number] Protocol Title: A Phase 3 Randomized, Double-blind, Multi-center, Placebo-controlled Study to Evaluate the Efficacy and Safety of AR882 in Participants with Gout PI: Dr. Bean Rosas MD, PhD no flares no GI issues still taking colchicine as there was an uncertain flare from knee pain and he wanted to take colchicine longer to be certain no tender/sw joints possible tophus left DIP area of the 1st toe non tender (recognized from the outset) MONTH 4.5: Vitals: Height: Weight: 282 BMI: Systolic BP:148 Diastolic BP: 89 Pulse Rate:64 Respiratory Rate:16 Body Temperature: 36.7 Abbreviated Physical Exam: Cardiovascular: Abnormal, description of abnormality: Abdomen: Normal Abnormal, description of abnormality: Skin: Normal Abnormal, description of abnormality: Respiratory: Normal Abnormal, description of abnormality: Impression: Will the subject continue on study drug? yes Adverse Events (with dates)? none Date of stopping colchicine: 01/18/25 (last took 01/17) HTN remains - he is not certain if his enalapril dose changed.. i advised to f/up w his primary but in meantime: check the dose of enalapril (5mg pills) that you are taking if taking 1; increase to 2 pills once a day if taking 2 - increase to 3 and let your primary doc know and you can get a rx for a larger strength pill in order to take fewer pills stop the colchicine Bean Rosas MD, PhD documented in this encounter [facility] 01-17-2025 Note HNO ID: [id number] Author: DAYANNA VALERIO RN Service: ? Author Type: Registered Nurse Type: Progress Notes Filed: 01/17/2025 15:31 Note Text: IRB# [id number] Study short name: Arthrosi Gout Study title: A Phase 3 Randomized, Double-blind, Multi-center, Placebo-controlled Study to Evaluate the Efficacy and Safety of AR882 in Participants with Gout (Protocol version 4.0) [id number] PI: Bean Rosas MD Research Nurse/Coordinator: Moises Reyna Visit #: Month 4.5 Subject ID [id number] Lab tubes coming from: Study Team for Core Lab Time Point Procedures Comments/Signature Prior to Visit . Baseline Subject continues to consent. Height: 175.1 cm Weight: 128.1 kg Vital Signs collected Time: 1504 Clean catch urine sample obtained Time: 1500 UA given to Core lab Signature: Dayanna Valerio RN Post Dose Blood Draw Time: 1507 Butterfly used in left antecubital area. Blood drawn with vacutainer and syringe as needed and labs drawn per protocol. Butterfly removed after blood draw and site secured with sterile gauze. Patient tolerated procedure well. Signature: Dayanna Valerio RN Discharge D/C pt. to home Signature: Dayanna Valerio RN [facility] 01-17-2025 History of Presen t illness Narrative IRB# [id number] Study short name: Arthrosi Gout Study title: A Phase 3 Randomized, Double-blind, Multi-center, Placebo-controlled Study to Evaluate the Efficacy and Safety of AR882 in Participants with Gout (Protocol version 4.0) [id number] PI: Bean Rosas MD Research Nurse/Coordinator: Moises Reyna Visit #: Month 4.5 Subject ID [id number] Lab tubes coming from: Study Team for Core Lab Time Point Procedures Comments/Signature Prior to Visit . Baseline Subject continues to consent. Height: 175.1 cm Weight: 128.1 kg Vital Signs collected Time: 1504 Clean catch urine sample obtained Time: 1500 UA given to Core lab Signature: Dayanna Valerio RN Post Dose Blood Draw Time: 1507 Butterfly used in left antecubital area. Blood drawn with vacutainer and syringe as needed and labs drawn per protocol. Butterfly removed after blood draw and site secured with sterile gauze. Patient tolerated procedure well. Signature: Dayanna Valerio RN Discharge D/C pt. to home Signature: Dayanna Valerio RN documented in this encounter [facility] 12-04-2024 Note HNO ID: [id number] Author: MOISES REYNA, Research Coordinator Service: ? Author Type: Physician Type: Progress Notes Filed: 01/25/2025 12:30 Note Text: Clinical Research Study - Rheumatic and Immunologic Diseases IRB#[id number] Protocol Title: A Phase 3 Randomized, Double-blind, Multi-center, Placebo-controlled Study to Evaluate the Efficacy and Safety of AR882 in Participants with Gout PI: Dr. Bean Rosas MD, PhD MONTH 3: Vitals: Height: 173.8 cm Weight: 128.3 kg BMI: 42.47 Systolic BP:140 Diastolic BP:96 Pulse Rate:74 Respiratory Rate:18 Body Temperature: 97.6 f Abbreviated Physical Exam: Cardiovascular:normal Abdomen: Normal Respiratory: Normal skin normal right pre-patellar fullness despite 3 wks prednisone not tender - this started after working on his knees - never hot/red or exquisitely tender.no knee effusion lump (maybe subcut firm tophus) distal lateral left great toe ~ the same, non tender Impression: Will the subject continue on study drug? yes htn - enalapril increased roberto SE from med prepatellar pain on right, not clearly a flare (i think not) but will continue colchicine prophylaxis for 1 additional month (has been ~ 90 dys) Bean Rosas MD, PhD 30 mins advance review, office time, research forms Visit completed per protocol. PROs sent to patient, patient instructed to fill out within 3 days of the visit. Empiramed gout flare diary reviewed and encouraged continued compliance. Month 2 bottle returned ([id number]) with 4 unused pills Backup bottle was redispensed. 12/24 pills currently used out of it. Month 3 bottles not dispensed due to supply issue, company aware. These will be shipped to patients address on file once site receives shipment. Patient was instructed to use back up bottle until he receives the Month 3 supply. Vitals listed above were PI exam, Per PI patient will continue on colchicine for another month. Conmeds and AE's reviewed: Patient noted knee pain since last visit and was prescribed prednisone from PCP, patient took this from November 12-December 03 20mg No other AE noted Moises Reyna Research Coordinator [facility] 12-04-2024 History of Presen t illness Narrative Clinical Research Study - Rheumatic and Immunologic Diseases IRB#[id number] Protocol Title: A Phase 3 Randomized, Double-blind, Multi-center, Placebo-controlled Study to Evaluate the Efficacy and Safety of AR882 in Participants with Gout PI: Dr. Bean Rosas MD, PhD MONTH 1: Vitals: Height: Weight: BMI: Systolic BP:140 Diastolic BP:96 Pulse Rate:74 Respiratory Rate:18 Body Temperature: Abbreviated Physical Exam: Cardiovascular:normal Abdomen: Normal Respiratory: Normal skin normal right pre-patellar fullness despite 3 wks prednisone not tender - this started after working on his knees - never hot/red or exquisitely tender.no knee effusion lump (maybe subcut firm tophus) distal lateral left great toe ~ the same, non tender Impression: Will the subject continue on study drug? yes htn - enalapril increased roberto SE from med prepatellar pain on right, not clearly a flare (i think not) but will continue colchicine prophylaxis for 1 additional month (has been ~ 90 dys) Bean Rosas MD, PhD 30 mins advance review, office time, research forms documented in this encounter [facility] 12-04-2024 History of Presen t illness Narrative IRB# [id number] Study short name: Arthrosi Gout Study title: A Phase 3 Randomized, Double-blind, Multi-center, Placebo-controlled Study to Evaluate the Efficacy and Safety of AR882 in Participants with Gout (Protocol version 4.0) [id number] PI: Bean Rosas MD Research Nurse/Coordinator: Moises Reyna Visit #: Month 3 Subject ID [id number] Lab tubes coming from: Study Team for Core Lab Time Point Procedures Comments/Signature Prior to Visit Subject to take medication at home in the am prior to same day visit: Subject to be reminded by Coordinator. Baseline Subject continues to consent. Dose taken at home - Time: 12/04/2024 at 1130 Height: 173.8 cm Weight: 128.3 kg Vital Signs collected Time: 1509 Clean catch urine sample obtained Time: 1513 UA given to Core lab Signature: Elva Beasley RN Post Dose 3-9 hours post dose Blood Draw Time: 1520 Butterfly used in right hand. Blood drawn with vacutainer and syringe as needed and labs drawn per protocol. Butterfly removed after blood draw and site secured with sterile gauze. Patient tolerated procedure well. Signature: Elva Beasley RN Discharge D/C pt. to home Signature: Elva Beasley RN documented in this encounter [facility] 12-04-2024 Note HNO ID: [id number] Author: ELVA BEASLEY RN Service: ? Author Type: Registered Nurse Type: Progress Notes Filed: 12/04/2024 15:24 Note Text: IRB# [id number] Study short name: Arthrosi Gout Study title: A Phase 3 Randomized, Double-blind, Multi-center, Placebo-controlled Study to Evaluate the Efficacy and Safety of AR882 in Participants with Gout (Protocol version 4.0) [id number] PI: Bean Rosas MD Research Nurse/Coordinator: Moises Reyna Visit #: Month 3 Subject ID [id number] Lab tubes coming from: Study Team for Core Lab Time Point Procedures Comments/Signature Prior to Visit Subject to take medication at home in the am prior to same day visit: Subject to be reminded by Coordinator. Baseline Subject continues to consent. Dose taken at home - Time: 12/04/2024 at 1130 Height: 173.8 cm Weight: 128.3 kg Vital Signs collected Time: 1509 Clean catch urine sample obtained Time: 1513 UA given to Core lab Signature: Elva Beasley RN Post Dose 3-9 hours post dose Blood Draw Time: 1520 Butterfly used in right hand. Blood drawn with vacutainer and syringe as needed and labs drawn per protocol. Butterfly removed after blood draw and site secured with sterile gauze. Patient tolerated procedure well. Signature: Elva Beasley RN Discharge D/C pt. to home Signature: Elva Beasley RN [facility] 11-08-2024 Note HNO ID: [id number] Author: MOISES REYNA, Research Coordinator Service: ? Author Type: Physician Type: Progress Notes Filed: 01/25/2025 13:46 Note Text: Clinical Research Study - Rheumatic and Immunologic Diseases IRB#[id number] Protocol Title: A Phase 3 Randomized, Double-blind, Multi-center, Placebo-controlled Study to Evaluate the Efficacy and Safety of AR882 in Participants with Gout PI: Dr. Bean Rosas MD, PhD no flares in gout - after working on ground under a truck (w/o knee pads) had pain and tender ant to r patella - no red/swelling took some ibuprofen and tylenol now just minimal tender itching w/o rash that he experienced is resolved and not returned. he says BP in past was in 120s MONTH 2: Vitals: Height: 175.3cm Weight:287lbs (130.3kg) BMI:42.4 Systolic BP:148 (by MD) Diastolic BP:98 Pulse Rate:66 Respiratory Rate: 20 Body Temperature:98.1 Abbreviated Physical Exam: Cardiovascular:normal Abdomen: Normal Skin: Normal Respiratory: Normal Abnormal, description of abnormality: right patella minimal tender inferior/ant aspect no knee joint tenderness left great toe distal joint enlargement which appears as tophus non tender no real change Impression: Will the subject continue on study drug? YES Answers submitted by the patient for this visit: Review of Systems Rheumatology (Submitted on 11/08/2024) Fever : No Recent unintentional weight change: No Eye pain: No Eye redness: No Vision Disturbance: No Eye Dryness: No Nosebleeds: No Sores in your mouth: No Trouble Swallowing: No Dry Mouth: No Chest pain: No Leg Swelling: Yes A cough: No Shortness of breath: No Pain with breathing: No Heartburn: No Abdominal pain: No Diarrhea: No Black tarry stools: No Blood in urine: No Pain or burning with urination: No Joint pain or stiffness: Yes Muscle weakness: Yes Muscle aches: Yes Joint swelling: No Morning Stiffness in Joints: No A rash: No Skin Color Changes: No Hair Loss: No Nail Changes: No Headaches: No Numbness: No Memory Loss: No Swollen Glands: No imp: no issues with the study drug; no clear self defined flares or problems w study compound HTN - will initiate low dose 5 mg enalapril - advised to confirm this w his primary who has checked previously (he recalls ~ 124 systolic at that visit) Bean Rosas MD, PhD research visit ---- PROs sent to patient, instructed to complete within 3 days of visit. Gout flare diary reviewed and pt remains compliant and continued to encourage compliance. Pt will continue on colchicine prophylaxis per PI. Month 1 bottle ([id number]) returned, all capsules used Backup bottle ([id number]) returned an re dispensed, capsules used Month 2 bottle dispensed 11/08/2024: ([id number]) 50mg, 75mg or matching placebo 30 capsules Conmeds (see med list) and AE's reviewed: AE Term: Generalized (migratory) pruritus; no rash Start/End: SEP 18 - OCT 19 Severity: mild Relation: possibly related to study treatment/prophylaxis AE Term: Knee Pain Start/End: NOVEMBER 18 - ongoing Severity: mild Relation: unlikely related to study treatment/prophylaxis Moises Reyna Research Coordinator [facility] 11-08-2024 History of Presen t illness Narrative Clinical Research Study - Rheumatic and Immunologic Diseases IRB#[id number] Protocol Title: A Phase 3 Randomized, Double-blind, Multi-center, Placebo-controlled Study to Evaluate the Efficacy and Safety of AR882 in Participants with Gout PI: Dr. Bean Rosas MD, PhD no flares in gout - after working on ground under a truck (w/o knee pads) had pain and tender ant to r patella - no red/swelling took some ibuprofen and tylenol now just minimal tender itching w/o rash that he experienced is resolved and not returned. he says BP in past was in 120s MONTH 2: Vitals: Height: Weight:287 BMI:42.4 Systolic BP:148 (by MD) Diastolic BP:98 Pulse Rate:66 Respiratory Rate: 20 Body Temperature:98.1 Abbreviated Physical Exam: Cardiovascular:normal Abdomen: Normal Skin: Normal Respiratory: Normal Abnormal, description of abnormality: right patella minimal tender inferior/ant aspect no knee joint tenderness left great toe distal joint enlargement which appears as tophus non tender no real change Impression: Will the subject continue on study drug? YES Answers submitted by the patient for this visit: Review of Systems Rheumatology (Submitted on 11/08/2024) Fever : No Recent unintentional weight change: No Eye pain: No Eye redness: No Vision Disturbance: No Eye Dryness: No Nosebleeds: No Sores in your mouth: No Trouble Swallowing: No Dry Mouth: No Chest pain: No Leg Swelling: Yes A cough: No Shortness of breath: No Pain with breathing: No Heartburn: No Abdominal pain: No Diarrhea: No Black tarry stools: No Blood in urine: No Pain or burning with urination: No Joint pain or stiffness: Yes Muscle weakness: Yes Muscle aches: Yes Joint swelling: No Morning Stiffness in Joints: No A rash: No Skin Color Changes: No Hair Loss: No Nail Changes: No Headaches: No Numbness: No Memory Loss: No Swollen Glands: No imp: no issues with the study drug; no clear self defined flares or problems w study compound HTN - will initiate low dose 5 mg enalapril - advised to confirm this w his primary who has checked previously (he recalls ~ 124 systolic at that visit) Bean Rosas MD, PhD research visit documented in this encounter [facility] 11-08-2024 Note HNO ID: [id number] Author: TRACY WILLIS RN Service: ? Author Type: Registered Nurse Type: Progress Notes Filed: 11/08/2024 15:35 Note Text: IRB# [id number] Study short name: Arthrosi Gout Study title: A Phase 3 Randomized, Double-blind, Multi-center, Placebo-controlled Study to Evaluate the Efficacy and Safety of AR882 in Participants with Gout (Protocol version 4.0) [id number] PI: Bean Rosas MD Research Nurse/Coordinator: Moises Reyna Visit #: Month 2, Subject ID [id number] Lab tubes coming from: Study Team for Core Lab Time Point Procedures Comments/Signature Prior to Visit Subject to take medication at home in the am prior to same day visit: Subject to be reminded by Coordinator. Baseline Subject continues to consent. Dose taken at home - Time: 1230 Height: 175.3 cm Weight: 130.3 kg - copied from office visit today Vital Signs collected Time: 1457 Clean catch urine sample obtained Time: 1515 UA given to Core lab Signature: Tracy Willis RN Post Dose 3-9 hours post dose Blood Draw Time: 1531 Butterfly used in left antecubital area. Blood drawn with vacutainer and syringe as needed and labs drawn per protocol. Butterfly removed after blood draw and site secured with sterile gauze. Patient tolerated procedure well. Signature: Tracy Willis RN Discharge D/C pt. to home Signature: Tracy Willis RN [facility] 11-08-2024 History of Presen t illness Narrative IRB# [id number] Study short name: Arthrosi Gout Study title: A Phase 3 Randomized, Double-blind, Multi-center, Placebo-controlled Study to Evaluate the Efficacy and Safety of AR882 in Participants with Gout (Protocol version 4.0) [id number] PI: Bean Rosas MD Research Nurse/Coordinator: Moises Reyna Visit #: Month 2, Subject ID [id number] Lab tubes coming from: Study Team for Core Lab Time Point Procedures Comments/Signature Prior to Visit Subject to take medication at home in the am prior to same day visit: Subject to be reminded by Coordinator. Baseline Subject continues to consent. Dose taken at home - Time: 1230 Height: 175.3 cm Weight: 130.3 kg - copied from office visit today Vital Signs collected Time: 1457 Clean catch urine sample obtained Time: 1515 UA given to Core lab Signature: Tracy Willis RN Post Dose 3-9 hours post dose Blood Draw Time: 1531 Butterfly used in left antecubital area. Blood drawn with vacutainer and syringe as needed and labs drawn per protocol. Butterfly removed after blood draw and site secured with sterile gauze. Patient tolerated procedure well. Signature: Tracy Willis RN Discharge D/C pt. to home Signature: Tracy Willis RN documented in this encounter [facility] 10-04-2024 Note HNO ID: [id number] Author: MOISES REYNA, Research Coordinator Service: ? Author Type: Physician Type: Progress Notes Filed: 01/25/2025 13:33 Note Text: Clinical Research Study - Rheumatic and Immunologic Diseases IRB#[id number] Protocol Title: A Phase 3 Randomized, Double-blind, Multi-center, Placebo-controlled Study to Evaluate the Efficacy and Safety of AR882 in Participants with Gout PI: Dr. Bean Rosas MD, PhD has been taking drug regularly and colchicine regularly had about 1.5-2 weeks of migratory itching, NO rash. but that has resolved - possibly drug related 1 episode mild discomfort w possible swelling small toes right foot. lasted about a day - no limp and didn't take anything for this possible flare. has been taking colchicine prophylaxis. 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 tolerating and taking the drug and prophylaxis Will the subject continue on study drug? YES Answers submitted by the patient for this visit: Review of Systems Rheumatology (Submitted on 09/30/2024) Fever : No Recent unintentional weight change: No Eye pain: No Eye redness: No Vision Disturbance: No Eye Dryness: No Nosebleeds: No Sores in your mouth: No Trouble Swallowing: No Dry Mouth: No Chest pain: No Leg Swelling: No A cough: No Shortness of breath: No Pain with breathing: No Heartburn: No Abdominal pain: No Diarrhea: No Black tarry stools: No Blood in urine: No Pain or burning with urination: No Joint pain or stiffness: Yes Muscle weakness: No Muscle aches: Yes - nothing lasting Joint swelling: No Morning Stiffness in Joints: No A rash: No Skin Color Changes: No Hair Loss: No Nail Changes: No Headaches: No Numbness: No Memory Loss: No Swollen Glands: No ----- PROs completed during visit, gout flare diary reviewed, pt has been compliant and encouraged continued compliance. Pt will continue on colchicine prophylaxis per PI. D1 bottle returned ([id number]) with 2 capsules unused. Backup bottle ([id number]) unopened and re dispensed Month 1 bottle dispensed 10/04/24: ([id number]) 50mg, 75mg or matching placebo 30 capsules Conmeds and AE's reviewed: AE Term: Generalized (migratory) pruritus; no rash Start/End: SEP 18 - OCT 19 Severity: mild Relation: possibly related to study treatment/prophylaxis Moises Reyna Research Coordinator [facility] 10-04-2024 History of Presen t illness Narrative Clinical Research Study - Rheumatic and Immunologic Diseases IRB#[id number] Protocol Title: A Phase 3 Randomized, Double-blind, Multi-center, Placebo-controlled Study to Evaluate the Efficacy and Safety of AR882 in Participants with Gout PI: Dr. Bean Rosas MD, PhD has been taking drug regularly and colchicine regularly had about 1.5-2 weeks of migratory itching, NO rash. but that has resolved - possibly drug related 1 episode mild discomfort w possible swelling small toes right foot. lasted about a day - no limp and didn't take anything for this possible flare. has been taking colchicine prophylaxis. 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 tolerating and taking the drug and prophylaxis Will the subject continue on study drug? YES Answers submitted by the patient for this visit: Review of Systems Rheumatology (Submitted on 09/30/2024) Fever : No Recent unintentional weight change: No Eye pain: No Eye redness: No Vision Disturbance: No Eye Dryness: No Nosebleeds: No Sores in your mouth: No Trouble Swallowing: No Dry Mouth: No Chest pain: No Leg Swelling: No A cough: No Shortness of breath: No Pain with breathing: No Heartburn: No Abdominal pain: No Diarrhea: No Black tarry stools: No Blood in urine: No Pain or burning with urination: No Joint pain or stiffness: Yes Muscle weakness: No Muscle aches: Yes - nothing lasting Joint swelling: No Morning Stiffness in Joints: No A rash: No Skin Color Changes: No Hair Loss: No Nail Changes: No Headaches: No Numbness: No Memory Loss: No Swollen Glands: No documented in this encounter [facility] 10-04-2024 History of Presen t illness Narrative IRB# [id number] Study short name: Arthrosi Gout Study title: A Phase 3 Randomized, Double-blind, Multi-center, Placebo-controlled Study to Evaluate the Efficacy and Safety of AR882 in Participants with Gout (Protocol version 4.0) [id number] PI: Bean Rosas MD Research Nurse/Coordinator: Moises Reyna Visit #: Month 1 Subject ID [id number] Lab tubes coming from: Study Team for Core Lab Time Point Procedures Comments/Signature Prior to Visit Subject to take medication at home in the am prior to same day visit: Subject to be reminded by Coordinator. Baseline Subject continues to consent. Dose taken at home - Time: 1200 Height: 178.3 cm Weight: 129.3 kg Vital Signs collected Time: 1508 Clean catch urine sample obtained Time: 1515 UA given to Core lab Signature: Monika Dunne RN Post Dose 3-9 hours post dose Blood Draw Time: 1512 Butterfly used in left antecubital area. Blood drawn with vacutainer and syringe as needed and labs drawn per protocol. Butterfly removed after blood draw and site secured with sterile gauze. Patient tolerated procedure well. Signature: Monika Dunne RN Discharge D/C pt. to home Signature: Monika Dunne RN documented in this encounter [facility] 10-04-2024 Note HNO ID: [id number] Author: MONIKA DUNNE RN Service: ? Author Type: Registered Nurse Type: Progress Notes Filed: 10/04/2024 15:32 Note Text: IRB# [id number] Study short name: Arthrosi Gout Study title: A Phase 3 Randomized, Double-blind, Multi-center, Placebo-controlled Study to Evaluate the Efficacy and Safety of AR882 in Participants with Gout (Protocol version 4.0) [id number] PI: Bean Rosas MD Research Nurse/Coordinator: Moises Reyna Visit #: Month 1 Subject ID [id number] Lab tubes coming from: Study Team for Core Lab Time Point Procedures Comments/Signature Prior to Visit Subject to take medication at home in the am prior to same day visit: Subject to be reminded by Coordinator. Baseline Subject continues to consent. Dose taken at home - Time: 1200 Height: 178.3 cm Weight: 129.3 kg Vital Signs collected Time: 1508 Clean catch urine sample obtained Time: 1515 UA given to Core lab Signature: Monika Dunne RN Post Dose 3-9 hours post dose Blood Draw Time: 1512 Butterfly used in left antecubital area. Blood drawn with vacutainer and syringe as needed and labs drawn per protocol. Butterfly removed after blood draw and site secured with sterile gauze. Patient tolerated procedure well. Signature: Monika Dunne RN Discharge D/C pt. to home Signature: Monika Dunne RN [facility] 09-07-2024 Telephone encounter Note Received miscellaneous outside medical records, scanned into chart for review [facility] 09-07-2024 Miscellaneous Notes Received miscellaneous outside medical records, scanned into chart for review documented in this encounter [facility] 09-06-2024 Note HNO ID: [id number] Author: MOISES REYNA, Research Coordinator Service: ? Author Type: Physician Type: Progress Notes Filed: 01/25/2025 13:14 Note Text: here randomization and drug dispensing visit for the arthrosi protocol Clinical Research Study - Rheumatic and Immunologic Diseases IRB#[id number] Protocol Title: A Phase 3 Randomized, Double-blind, Multi-center, Placebo-controlled Study to Evaluate the Efficacy and Safety of AR882 in Participants with Gout PI: Dr. Bean Rosas MD, PhD DAY ONE: RANDOMIZATION: Is the Subject ready to be randomized? Yes Has the subject been on prophylaxis at least 10 days prior to randomization date? Yes Does subject experience any Gout Flare 7 days before randomization? No Vitals: Blood pressure 155/96, pulse 60, temperature 36.3 ?C (97.3 ?F), temperature source Oral, resp. rate 18, height 175.3 cm (5' 9), weight 130.4 kg (287 lb 7.7 oz), SpO2 98%. 152/92 lue seated (my exam) Physical Exam: Head, eyes, ears and nose:Normal Throat: Normal Cardiovascular:nl Abdomen: Normal Abnormal, description of abnormality: Skin: Normal Abnormal, description of abnormality: Respiratory: Normal Abnormal, description of abnormality: Neurological: Normal Abnormal, description of abnormality: Tender/Swollen Joint count: Count of Tender joints: 0 Count of Swollen joints: 0 Tophus Count - Left side Target Areas Left Wrist: Left Hand: Left Ankle: Left Foot: 1st DIP Non-Target Areas Left Ear: Left Elbow: Left Knee/Patella: Dermis: Specify: Other: Specify: Tophus Count - Right side Target Areas Right Wrist: Right Hand: Right Ankle: Right Foot: Non-Target Areas Right Ear: Right Elbow: Right Knee/Patella: Dermis: Specify: Other: Specify: imp: may need to have BP addressed, but feels well no flares (asymptomatic) no issues w colchicine no questions re protocol or plans for randomization -------- Inclusion/exclusion criteria reviewed and patient is eligible to continue with randomization. Pt had vitals, labs, and EKG then was given first dose orally in CRU at 1618 - See CRU note. Bottles dispensed 09/06/2024: [id number], 50mg, 75mg or matching placebo 30 capsules [id number], 50mg, 75mg or matching placebo 30 capsules *Backup Bottle* Pt educated on backup bottle. Pt understands he is only to use back up bottle if the first bottle is used up, and to bring back to every visit for accountability. PROs and gout flare diary completed in person. Educated patient on gout flare diary and Empiramed. Pt understands he will need to complete flare diary at least once every two weeks and complete PROs within 3 days of research appointment. Patient continues colchicine, conmeds and AE's reviewed. Moises Reyna Research Coordinator [facility] 09-06-2024 History of Presen t illness Narrative here randomization and drug dispensing visit for the arthrosi protocol Clinical Research Study - Rheumatic and Immunologic Diseases IRB#[id number] Protocol Title: A Phase 3 Randomized, Double-blind, Multi-center, Placebo-controlled Study to Evaluate the Efficacy and Safety of AR882 in Participants with Gout PI: Dr. Bean Rosas MD, PhD DAY ONE: RANDOMIZATION: Is the Subject ready to be randomized? Yes Has the subject been on prophylaxis at least 10 days prior to randomization date? Yes Does subject experience any Gout Flare 7 days before randomization? No Vitals: Blood pressure 155/96, pulse 60, temperature 36.3 C (97.3 F), temperature source Oral, resp. rate 18, height 175.3 cm (5' 9), weight 130.4 kg (287 lb 7.7 oz), SpO2 98%. 152/92 lue seated (my exam) Physical Exam: Head, eyes, ears and nose:Normal Throat: Normal Cardiovascular:nl Abdomen: Normal Abnormal, description of abnormality: Skin: Normal Abnormal, description of abnormality: Respiratory: Normal Abnormal, description of abnormality: Neurological: Normal Abnormal, description of abnormality: Tender/Swollen Joint count: Count of Tender joints: Count of Swollen joints: Tophus Count - Left side Target Areas Left Wrist: Left Hand: Left Ankle: Left Foot: 1st DIP Non-Target Areas Left Ear: Left Elbow: Left Knee/Patella: Dermis: Specify: Other: Specify: Tophus Count - Right side Target Areas Right Wrist: Right Hand: Right Ankle: Right Foot: Non-Target Areas Right Ear: Right Elbow: Right Knee/Patella: Dermis: Specify: Other: Specify: imp: may need to have BP addressed, but feels well no flares (asymptomatic) no issues w colchicine no questions re protocol or plans for randomization documented in this encounter [facility] 09-06-2024 Note HNO ID: [id number] Author: MOISES REYNA, Research Coordinator Service: ? Author Type: Registered Nurse Type: Progress Notes Filed: 10/25/2024 11:59 Note Text: IRB# [id number] Study short name: Arthrosi Gout Study title: A Phase 3 Randomized, Double-blind, Multi-center, Placebo-controlled Study to Evaluate the Efficacy and Safety of AR882 in Participants with Gout (Protocol version 4.0) [id number] PI: Bean Rosas MD Research Nurse/Coordinator: Moises Reyna Visit #: Day 1 Subject ID [id number] Lab tubes coming from: Study Team for Core Lab Time Point Procedures Comments/Signature Prior to Visit Gather special equipment (CRU EKG machine) Baseline Subject continues to consent. Height: 175.3 cm Weight: 130.4 kg Vital Signs collected Time: 1604 EKG Time: 1604 Clean catch urine sample obtained Time: 1607 UA given to Core lab EKG's are uploaded into EMR Signature: Elsa Whitehead RN, Nohelia Sue RN Pre Dose Within 2 hours pre- dose Blood Draw Time: 1613 Butterfly used in left antecubital area. Blood drawn with vacutainer and syringe as needed and labs drawn per protocol. Butterfly removed after blood draw and site secured with sterile gauze. Patient tolerated procedure well. Signature: Elsa Whitehead RN, Nohelia Sue RN Dosing Study drug given orally at 1618 - see eMAR Pt. observed for 30 minutes post dose: Time 1648 Signature: Nohelia Boss RN, RN Discharge D/C pt. to home Signature: Nohelia Boss RN, RN Addendum 10/25/24: Pt was witnessed given medication by Elsa Whitehead RN without food at time documented in the eMAR Moises Reyna, Research Coordinator [facility] 09-06-2024 History of Presen t illness Narrative IRB# [id number] Study short name: Arthrosi Gout Study title: A Phase 3 Randomized, Double-blind, Multi-center, Placebo-controlled Study to Evaluate the Efficacy and Safety of AR882 in Participants with Gout (Protocol version 4.0) [id number] PI: Bean Rosas MD Research Nurse/Coordinator: Moises Reyna Visit #: Day 1 Subject ID [id number] Lab tubes coming from: Study Team for Core Lab Time Point Procedures Comments/Signature Prior to Visit Gather special equipment (CRU EKG machine) Baseline Subject continues to consent. Height: 175.3 cm Weight: 130.4 kg Vital Signs collected Time: 1604 EKG Time: 1604 Clean catch urine sample obtained Time: 1607 UA given to Core lab EKG's are uploaded into EMR Signature: Elsa Whitehead RN, Nohelia Sue RN Pre Dose Within 2 hours pre- dose Blood Draw Time: 1613 Butterfly used in left antecubital area. Blood drawn with vacutainer and syringe as needed and labs drawn per protocol. Butterfly removed after blood draw and site secured with sterile gauze. Patient tolerated procedure well. Signature: Elsa Whitehead RN, Nohelia Sue RN Dosing Study drug given orally at 1618 - see eMAR Pt. observed for 30 minutes post dose: Time 1648 Signature: Elsa Whitehead RN, Nohelia Sue RN Discharge D/C pt. to home Signature: Elsa Whitehead RN, Nohelia Sue RN documented in this encounter [facility] 08-24-2024 History of Presen t illness Narrative Radiology Service Progress Note PATIENT NAME: Marvin Machado DATE OF SERVICE: August 24, 2024 TIME: 3:27 PM PATIENT IDENTITY VERIFICATION COMPLETED USING TWO (2) IDENTIFIERS: Name and Date of confirmed by patient verbally. FALL SCREENING: Has the patient had 2 falls in the last year or 1 fall with injury or currently using an Ambulatory Assistive Device (Walker, Cane, Wheelchair, Crutches, etc.)? No PATIENT GENDER DATA: Assigned male at PATIENT RELEVANT IMPLANT DATA REVIEWED: Not Applicable PATIENT PRESENTS WITH AN IMPLANTABLE OR ATTACHED VACUUM FORM OPERATOR: No RADIOLOGY DEPARTMENT: Ultrasound PERIPHERAL IV DATA: Not applicable SIGNED BY: Celia Aponte RDMS RVT August 24, 2024 3:27 PM documented in this encounter [facility] 08-24-2024 Note HNO ID: [id number] Author: CELIA APONTE RDMS Service: ? Author Type: Paymaster Of Purses Type: Progress Notes Filed: 08/24/2024 15:28 Note Text: Radiology Service Progress Note PATIENT NAME: Marvin Machado DATE OF SERVICE: August 24, 2024 TIME: 3:27 PM PATIENT IDENTITY VERIFICATION COMPLETED USING TWO (2) IDENTIFIERS: Name and Date of confirmed by patient verbally. FALL SCREENING: Has the patient had 2 falls in the last year or 1 fall with injury or currently using an Ambulatory Assistive Device (Walker, Cane, Wheelchair, Crutches, etc.)? No PATIENT GENDER DATA: Assigned male at PATIENT RELEVANT IMPLANT DATA REVIEWED: Not Applicable PATIENT PRESENTS WITH AN IMPLANTABLE OR ATTACHED VACUUM FORM OPERATOR: No RADIOLOGY DEPARTMENT: Ultrasound PERIPHERAL IV DATA: Not applicable SIGNED BY: Celia Aponte RDMS RVT August 24, 2024 3:27 PM [facility] 08-21-2024 Instructions Bean Rosas MD, PhD - 08/21/2024 3:45 PM EST Images from the original note were not included. Gout is a CURABLE disease! The disease of gout is the abnormal deposition of uric acid crystals in and around joints and sometimes in the skin (tophi). The very painful flare (attack) of gout is a symptom of the disease, and must be treated - but treating these painful symptoms with medicines like colchicine, non-steroidal anti-inflammatory drugs (naproxen, indomethacin, celecoxib, advil) or steroids (prednisone, medrol) will NOT cure the disease. Once the deposits are gotten rid of, which we do by dissolving them with medications that lower blood uric acid (urate) level, and keeping it low, the attacks will STOP! The goal of successful treatment is to keep the blood uric acid level less than 6 forever. The lower the uric acid level, the faster the deposits will dissolve. The uric acid that builds up and deposits in around joints or as lumps under the skin, mostly comes from the cells in our own body. The uric acid in the blood deposits into and around joints, just as too much sugar in iced tea deposits on the bottom of a glass. Most of the uric acid in our body does NOT come from what we eat, despite the dramatic paintings of the quite robust, and quite gouty, Tono DA SILVA and Armaan Marin! Nonetheless, dietary habits that include excess beer (including non-alcoholic beer), other alcoholic beverages, meats, and especially fructose containing corn syrup (we need to read food labels) can contribute significantly to the risk of developing gout and gout flares - be mindful of what you eat and drink. How efficiently our bodies get rid of the uric acid from our blood through our kidneys and GI system is largely determined by our genes, which is why gout tends to run in families. Men tend to have higher uric acid levels than women, but women also get gout. As we lower the blood uric acid level with medications in order to CURE the gout, there may be initially an increase in flares of gout. These flares (attacks) can happen as the deposits begin to dissolve. We will need to treat these flares and be prepared for them. We also try to prevent them from happening by lowering the uric acid level slowly (by gradually raising the dose of a urate lowering medication like allopurinol or febuxostat) and by using medicines to prevent the flares (like colchicine or low dose of naproxen or Celebrex). If a flare happens, DO NOT STOP taking your urate lowering therapy. Although the elevated levels of uric acid (called hyperuricemia) cause gout, many patients may have hyperuricemia and not develop gout. The reason for this is not understood. But because many people have hyperuricemia without suffering gout attacks, finding elevated blood uric acid levels on a blood test does NOT mean that a patient has gout. Gout CANNOT be definitely diagnosed by a blood test! The way to definitely diagnose gout is to take a little fluid from a swollen joint (after numbing the joint with anesthetic) and see the uric acid crystals using a special microscope. Special CT scans and ultrasound techniques are also being perfected that also may be used to diagnose gout in some patients. Patients with gout frequently have high blood pressure, diabetes, kidney disease, fatty liver disease, kidney stones or heart disease. This may be because a high level of uric acid in the blood directly contributes to the development of some or all of those other medical conditions. It usually takes years for the uric acid deposits to build up in different areas of our bodies, so it should not be surprising that it may take many months or a few years to completely dissolve those deposits and cure the gout. The lower the blood uric acid level, the faster the deposits will dissolve. That is why your physician will monitor the blood uric acid level and readjust the medication based on that level. You should know what your uric acid level is, like if you have high blood pressure - you should know that also! GOUT IS CURABLE; but it is a team sport involving you, the people who eat with you, and cook for you and your physicians. Uric acid lowering therapy is life long, unless there is some major change in your body (massive weight loss, change in certain medications). If the uric acid lowering therapy is stopped, the blood uric acid level will go up again, and the deposits will form again leading to a return of the gout with its painful flares. Before and After treatment pictures documented in this encounter [facility] 08-21-2024 Note HNO ID: [id number] Author: MOISES REYNA, Research Coordinator Service: ? Author Type: Physician Type: Progress Notes Filed: 10/26/2024 09:37 Note Text: here for likely gout - 30 yrs ago started having abrupt painful episodes of pain/redness. last flare month ago l olec area. has had several past year - and over time included mid-feet, mar 2023 uloric took for few months, insurance wouldn't cover so switched to allopurinol and had several flares (doesn't recall level) Clinical Research Study - Rheumatic and Immunologic Diseases IRB#[id number] Protocol Title: A Phase 3 Randomized, Double-blind, Multi-center, Placebo-controlled Study to Evaluate the Efficacy and Safety of AR882 in Participants with Gout PI: Dr. Bean Rosas MD, PhD SCREENING VISIT: Benefits, risks, anticipated outcomes and alternatives of the study discussed with the patient along with the roles and tasks of the patient and personnel to be involved. The patient consents to the study and agrees to proceed. Questions were asked and answered, the subject demonstrated understanding of the research and their questions were answered. A copy of the signed Informed consent provided to the patient. Main consent: [facility] Version 4 [id number], IRB Approved Date: 08/02/2024 Expiration Date: 03/22/2025. Consent was obtained prior to any study procedures being completed. Date of Informed Consent: 08/21/2024 Protocol Version: Protocol Amendment V4 19 APR 2024 Demographics: Year of : 1970 Age: [age] year old Sex: male Is the subject a woman of childbearing potential? No If no, reason: Ethnicity: Not or Race: White Inclusion Criteria: Participants are eligible to be included in the study only if ALL the following criteria apply: 1. Male or female participants >= 18 to <= 85 years of age at the time of signing the informed consent form (ICF).Yes 2. Participants that have documented medical records stating history of gout. If no documented medical history of gout, delegated site personnel should complete the ACR/EULAR gout classification criteria calculator to confirm gout diagnosis. Yes 3. Must have had an occurrence of >= 2 self-reported gout flares in the last 12 months. Yes 4. Body weight must be >= 50 kg and body mass index between >= 18 to <= 45 kg/m2 Yes 5. Male or female participants. Contraceptive use by men and women should be consistent with Local regulations regarding the methods of contraception for those participating in clinical studies. Yes 6. Capable of giving signed informed consent, which includes compliance with the requirements and restrictions listed in the ICF and in this protocol. Yes 7. Participants must meet one of the following criteria: a. ULT-naive participants Yes OR b. Participants entering the study on ULT (allopurinol, febuxostat, probenecid, benzbromarone, sulfinpyrazone, and other ULTs indicated for gout) are willing to washout for a minimum of 10 days before first IP administration on Day 1. N/A 8. Participant meets one of the following criteria at Screening: a. If not currently taking an approved ULT, participant must have an sUA value >= 7.0 mg/dL (416 ?mol/L). Yes OR b. If entering the study on ULT treatment, participant must have an sUA value > 6.0 mg/dL (357 ?mol/L). N/A 9. Serum creatinine must be < 3.0 mg/dL and estimated CLcr >= 30 mL/min by Cockcroft-Gault formula. Yes 10. Participants taking concomitant medications must be on a stable dose from 4 weeks before Day 1 and agree to maintain the stable dose through to the Final Follow-up Visit. Yes 11. Participants previously prescribed pegloticase or rasburicase must have stopped taking these medications for at least 90 days before Day 1. N/A 12. Must be free of any clinically significant disease that would interfere with study evaluations or procedures as per the [employer]?s judgment Yes Exclusion Criteria: Participants are excluded from the study if ANY of the following criteria apply: 1. A history of clinically significant disorders or presenting with signs or symptoms of clinically significant disorders that are not well-controlled as per the [employer]?s judgment. No 2. History of symptomatic kidney stones (kidney stones with signs or symptoms) within the past 6 months, nephrectomy, and/or renal transplant. No 3. History of xanthinuria. No 4. History of tumor lysis syndrome or Lesch-Nyhan syndrome. No 5. Hemoglobin < 10 g/dL (males) or < 9 g/dL (females) at Screening. No 6. Alanine aminotransferase (ALT) or aspartate aminotransferase (AST) > 2.0 ? upper limit of normal (ULN), total bilirubin > 3 mg/dL, and/or international normalized ratio (INR) > 1.7 (not on anti-coagulant therapy) at Screening. No 7. Participants that have moderately impaired hepatic function (Child-Jackson Class B) or advanced hepatic dysfunction, (Child-Jackson Class C), (more content not included)... [facility] 08-21-2024 History of Presen t illness Narrative here for likely gout - 30 yrs ago started having abrupt painful episodes of pain/redness. last flare month ago l [facility]. has had several past year - and over time included mid-feet, mar 2023 uloric took for few months, insurance wouldn't cover so switched to allopurinol and had several flares (doesn't recall level) Clinical Research Study - Rheumatic and Immunologic Diseases IRB#[id number] Protocol Title: A Phase 3 Randomized, Double-blind, Multi-center, Placebo-controlled Study to Evaluate the Efficacy and Safety of AR882 in Participants with Gout PI: Dr. Bean Rosas MD, PhD SCREENING VISIT: Benefits, risks, anticipated outcomes and alternatives of the study discussed with the patient along with the roles and tasks of the patient and personnel to be involved. The patient consents to the study and agrees to proceed. Questions were asked and answered, the subject demonstrated understanding of the research and their questions were answered. A copy of the signed Informed consent provided to the patient. Main consent: CCF Version 4 [id number], IRB Approved Date: 08/02/2024 Expiration Date: 03/22/2025. Date of Informed Consent: 08/21/2024 Protocol Version: Protocol Amendment V4 19 APR 2024 Demographics: Year of : 1970 Age: [age] year old Sex: male Is the subject a woman of childbearing potential? No If no, reason: Ethnicity: Not or Race: White Inclusion Criteria: Participants are eligible to be included in the study only if ALL the following criteria apply: 1. Male or female participants >= 18 to <= 85 years of age at the time of signing the informed consent form (ICF).Yes 2. Participants that have documented medical records stating history of gout. If no documented medical history of gout, delegated site personnel should complete the ACR/EULAR gout classification criteria calculator to confirm gout diagnosis. Yes 3. Must have had an occurrence of >= 2 self-reported gout flares in the last 12 months. Yes 4. Body weight must be >= 50 kg and body mass index between >= 18 to <= 45 kg/m2 Yes 5. Male or female participants. Contraceptive use by men and women should be consistent with Local regulations regarding the methods of contraception for those participating in clinical studies. Yes 6. Capable of giving signed informed consent, which includes compliance with the requirements and restrictions listed in the ICF and in this protocol. Yes 7. Participants must meet one of the following criteria: a. ULT-na ve participants Yes OR b. Participants entering the study on ULT (allopurinol, febuxostat, probenecid, benzbromarone, sulfinpyrazone, and other ULTs indicated for gout) are willing to washout for a minimum of 10 days before first IP administration on Day 1. N/A 8. Participant meets one of the following criteria at Screening: a. If not currently taking an approved ULT, participant must have an sUA value >= 7.0 mg/dL (416 mol/L). Yes OR b. If entering the study on ULT treatment, participant must have an sUA value > 6.0 mg/dL (357 mol/L). N/A 9. Serum creatinine must be < 3.0 mg/dL and estimated CLcr >= 30 mL/min by Cockcroft-Gault formula. Yes 10. Participants taking concomitant medications must be on a stable dose from 4 weeks before Day 1 and agree to maintain the stable dose through to the Final Follow-up Visit. Yes 11. Participants previously prescribed pegloticase or rasburicase must have stopped taking these medications for at least 90 days before Day 1. N/A 12. Must be free of any clinically significant disease that would interfere with study evaluations or procedures as per the [employer] s judgment Yes Exclusion Criteria: Participants are excluded from the study if ANY of the following criteria apply: 1. A history of clinically significant disorders or presenting with signs or symptoms of clinically significant disorders that are not well-controlled as per the [employer] s judgment. No 2. History of symptomatic kidney stones (kidney stones with signs or symptoms) within the past 6 months, nephrectomy, and/or renal transplant. No 3. History of xanthinuria. No 4. History of tumor lysis syndrome or Lesch-Nyhan syndrome. No 5. Hemoglobin < 10 g/dL (males) or < 9 g/dL (females) at Screening. No 6. Alanine aminotransferase (ALT) or aspartate aminotransferase (AST) > 2.0 upper limit of normal (ULN), total bilirubin > 3 mg/dL, and/or international normalized ratio (INR) > 1.7 (not on anti-coagulant therapy) at Screening. No 7. Participants that have moderately impaired hepatic function (Child-Jackson Class B) or advanced hepatic dysfunction, (Child-Jackson Class C), or participants that are recipients of a liver transplant. No 8. Positive serology to human immunodeficiency virus ([HIV]; HIV1 and HIV2) with a confirmatory positive HIV assay and/or hepatitis C virus (HCV) antibodies with a confirmatory positive HCV RNA and/or hepatitis B surface antigen. No 9. Malignancy within 5 years, except for basal or squamous cell carcinoma of the skin that has been successfully treated. Participants with a history of other malignancies that have been treated with curative intent at least 3 years before Screening with no recurrence may also be eligible if approved by the Sponsor Medical Monitor (or designee). No 10. History of complete heart block, QTc prolongation, Torsades de pointes, or any family history of congenital QT interval prolongation syndrome. No 11. History within 6 months before Screening and/or presence of substance use disorders including alcohol use disorder as defined by the Diagnostics and Statistical Manual of Mental Disorders, fifth edition. No 12. History of severe allergic reaction (e.g., anaphylaxis) to a food, drug, chemical, or natural substance. No 13. Uncontrolled hypertension (e.g., systolic pressure > 160 mm Hg, or diastolic pressure > 95 mm Hg on repeated measures). No 14. QT corrected for heart rate according to Fridericia (QTcF) interval > 450 msec (males) or > 480 msec (females) at Screening. No 15. Any use of concomitant medications that have a moderate or high risk of prolonging the QT/QTc interval within 14 days before Day 1. No 16. Participants requiring long-term use of high-dose salicylates (> 1g/day) will be excluded. NA 17. Participants requiring or taking warfarin will be excluded. N/A 18. Received any vaccinations (including coronavirus disease-2019 [COVID-19] and influenza) within 14 days before dosing on Day 1. No 19. Received pegloticase or rasburicase within the 3 months before Screening. No 20. Previously dosed with AR882 or previously received an IP, investigational biological agent, or investigational device within 3 months or 5 half-lives of the IP, whichever is longer. No 21. Safety laboratory abnormality values considered clinically significant by the [employer]. No 22. Positive test for drugs of abuse (cocaine, methamphetamine, amphetamine, benzodiazepines, methadone, barbiturates, or opiates) at Screening. Participants with positive test(s) for amphetamines, barbiturates, benzodiazepines, or opiates who present documentation of a valid prescription for the respective drug will be permitted if the prescription is deemed acceptable by the [employer]. No 23. Inadequate venous access or unsuitable veins for repeated venipuncture in the opinion of the [employer]. No 24. Any acute illness within 1 week of Day 1 or active infection within 2 weeks of Day 1. No 25. Had major surgery within 3 months of Day 1. No 26. Donated whole blood within 8 weeks before Day 1 or donated plasma within 4 weeks before Screening. Participants must agree to refrain from donation of blood, fluids, and other tissue throughout the treatment period until 12 weeks after receiving the last dose of IP. No 27. Clinically relevant intolerance or allergy to AR882 or is known or suspected to have hypersensitivity to benzbromarone and/or any ingredient in the study treatments. No 28. Is in a situation or with a condition that, in the opinion of the [employer], may interfere with optimal participation in the study. No 29. Is involved in other clinical studies throughout the period of this study. No 30. Is unable or unwilling to comply with study restrictions. No Inclusion/Exclusion: Did the subject meet all eligibility criteria? Yes Inclusion/Exclusion not met category: Inclusion or exclusion not met: ACR/EULAR Gout Classification Criteria: Entry Criterion: At least one episode of swelling, pain, or tenderness in peripheral joint or bursa. Yes Sufficient Criterion: Presence of MSU crystals in a symptomatic joint or bursa (I.e., in synovial fluid) or tophus.NA Clinical Criteria: Pattern of joint/bursa involvement during symptomatic* (*Symptomatic episodes are periods of symptoms that include any of swelling, pain, or tenderness in a peripheral joint or bursa) episode(s) ever Joint(s) or bursa(e) other than ankle, midfoot or 1st MTP (or their involvement only as part of polyarticular presentation) (0), Ankle OR midfoot (as part of monoarticular or oligoarticular episode without MTP1 involvement) (1), and MTP1 (a part of monoarticular or oligoarticular episode) (2) Characteristics of symptomatic episode(s) ever: Three characteristics (3) I) Erythema overlying affected joint (patient-reported or physician observed) II) can't bear touch or pressure to affected joint III) great difficulty walking or inability to use affected joint Time-course of episode(s) ever, presence (ever) of >/=2, irrespective of anti-inflammatory treatment: Recurrent typical episodes (2) I) Time to maximal pain < 24 hours II) Resolution of symptoms in </= 14 days III) Complete resolution (to baseline level) between symptomatic episodes Clinical evidence of tophus: Draining or chalk-like subcutaneous nodule under transparent skin, often with overlying vascularity, located typical locations: joints, ears, olecranon bursae, finger pads, tendons (e.g., achillies). Absent (0) Lab Criteria: Serum urate: Measured by uricase method. Ideally should be scored at a time when patient was not taking urate-lowering treatment and patient was beyond 4 weeks of the start of an episode (I.e. during inter-critical period); if practicable, retest under those conditions. The highest value irrespective of timing should be scored. 6 - < 8mg/dL (2) Synovial fluid analysis of symptomatic (ever) joint or bursa: (If polarizing microscopy of synovial fluid from a symptomatic (ever) joint or bursa by a trained examiner fails to show MSU crystals, take away 2 points. If synovial fluid was not assessed (not done), score this item as 0. NA Imaging Criteria: Imaging evidence of urate deposition in symptomatic (ever) joint or bursa: Ultrasound evidence of double-contour sign or DECT demonstrating urate deposition. Absent OR not done (0) Imaging evidence of gout-related joint damage: Conventional radiography of the hands and/or feet demonstrate at least one erosion. Absent OR not done (0) Total score: Classily as gout? (If met sufficient criterion or total score >/=8) Yes 10 Gout Diagnosis: Date of initial gout diagnosis (must meet ACR/EULAR classification criteria): Number of gout flares in the past 12 months: Any previous urate lowering therapy? Yes Previous Urate Lowering therapy: Allopurinol and Febuxostat Start Date: End Date: Ongoing but willing to washout or a minimus of 10 day before first IP administration: Medical/Procedure History: Has the subject experienced any significant/relevant medical history? No Medical History Term: Start Date: End Date: Ongoing: No Is the subject taking medication related to this condition? No Associated concomitant medications: Has the subject experienced any significant/relevant surgical procedures? [place] of Procedure: Purpose of Procedure: Date of Procedure: Substance Usage: Alcohol Alcohol use occurrence: current Former, Stop date: Amount of drinks:0-1 /week Tobacco Tobacco use occurrence: past Former, Stop date: 25 years ago Category: Cigarettes Amount: Frequency: Occasional Dependence drugs Dependence drugs use occurrence: never Former, Stop date: Frequency: none Vitals: Height: Weight:295 lb BMI:43 Systolic BP:155 Diastolic BP:81 Pulse Rate:60 Respiratory :16 Body Temperature:98 Physical Exam: Head, eyes, ears and nose:Normal Abnormal, description of abnormality: Throat: Normal Abnormal, description of abnormality: Cardiovascular:no murmur; no pitting edema Abnormal, description of abnormality: Abdomen: Normal Abnormal, description of abnormality: Skin: Normal Abnormal, description of abnormality: Respiratory: Normal lungs Abnormal, description of abnormality: Neurological: Normal Abnormal, description of abnormality: Ultrasound Assessment: Does participant have a history of nephrolithiasis? Yes (possible) Was renal ultrasound performed? 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 will proceed w labs (SUA 7.8) and renal us and protocol defined defined photos Bean Rosas MD, PhD documented in this encounter [facility] 08-21-2024 Note HNO ID: [id number] Author: ELSA WHITEHEAD RN Service: ? Author Type: Registered Nurse Type: Progress Notes Filed: 08/21/2024 16:31 Note Text: IRB# [id number] Study short name: Arthrosi Gout Study title: A Phase 3 Randomized, Double-blind, Multi-center, Placebo-controlled Study to Evaluate the Efficacy and Safety of AR882 in Participants with Gout (Protocol version 4.0) [id number] PI: Bean Rosas MD Research Nurse/Coordinator: Moises Reyna Visit #: Screening Subject ID [id number] Lab tubes coming from: Study Team for Core Lab Time Point Procedures Comments/Signature Prior to Visit Gather special equipment (CRU EKG machine) Baseline Subject consented to study participation. Height: 175.3 cm Weight: 134.0 kg Vital Signs collected Time: 1615 EKG Time: 1619 Clean catch urine sample obtained Time: 1626 UA given to Core lab Blood Draw Time: 1622 Butterfly used in left antecubital area. Blood drawn with vacutainer and syringe as needed and labs drawn per protocol. Butterfly removed after blood draw and site secured with sterile gauze. Patient tolerated procedure well. EKG's are uploaded into EMR Signature: Elsa Whitehead RN Discharge D/C pt. to home Signature: Elsa Whitehead RN [facility] 08-21-2024 History of Presen t illness Narrative IRB# [id number] Study short name: Arthrosi Gout Study title: A Phase 3 Randomized, Double-blind, Multi-center, Placebo-controlled Study to Evaluate the Efficacy and Safety of AR882 in Participants with Gout (Protocol version 4.0) [id number] PI: Bean Rosas MD Research Nurse/Coordinator: Moises Reyna Visit #: Screening Subject ID [id number] Lab tubes coming from: Study Team for Core Lab Time Point Procedures Comments/Signature Prior to Visit Gather special equipment (CRU EKG machine) Baseline Subject consented to study participation. Height: 175.3 cm Weight: 134.0 kg Vital Signs collected Time: 1615 EKG Time: 1619 Clean catch urine sample obtained Time: 1626 UA given to Core lab Blood Draw Time: 1622 Butterfly used in left antecubital area. Blood drawn with vacutainer and syringe as needed and labs drawn per protocol. Butterfly removed after blood draw and site secured with sterile gauze. Patient tolerated procedure well. EKG's are uploaded into EMR Signature: Elsa Whitehead RN Discharge D/C pt. to home Signature: Elsa Whitehead RN documented in this encounter [facility] 08-17-2021 Hospital Discharg e instructions Patient Education [...] a slower pace than normal. ?Eat soft, cwdb-ny-hnpcws foods. ?Rest often. Take tlmw-mux-jpsmlvt or prescription medicines only as told by [...] 11/22/2017 Document Revised: 05/26/2018 Document Reviewed: 11/22/2017 [employer] Patient Education 2020 [employer]. 08/17/2021 09:39:09 Colon Polyps Colon Polyps Polyps [...] 03/09/2005 Document Revised: 09/28/2018 Document Reviewed: 09/28/2018 [employer] Patient Education 2020 [employer]. 08/17/2021 09:39:01 Monitored Anesthesia Care, Care After [...] before eating solid foods. General instructions Take ogkz-vmx-kugbcmr and prescription medicines only as told by [...] 10/03/2016 Document Revised: 09/11/2018 Document Reviewed: 10/03/2016 [employer] Patient Education 2020 [employer] 08/17/2021 09:38:54 Colonoscopy, Adult, Care After, Udne-jp-Bzwj Colonoscopy, Adult, Care After This sheet gives [...] are soft and easy to digest. Take fgxd-xup-cdlxzce or prescription medicines only as told by [...] 07/16/2011 Document Revised: 04/13/2018 Document Reviewed: 03/07/2017 [employer] Patient Education 2020 [employer]. Follow Up Care 07/21/2021 16:25:17 With:ALEJANDRO MERCADO MD Address: [phone] When: Unknown Comments:SPECIMENS WERE SENT TO THE LAB. YOU WILL GET THESE RESULTS IN 7-10 DAYS. HE WILL CALL YOU OR YOU WILL GET A LETTER IN THE MAIL WITH THE RESULTS. CALL DR MERCADO'S OFFICE WITH ANY QUESTIONS. GO TO THE EMERGENCY ROOM WITH ANY URGENT MATTERS. [facility] Evaluation + Plan note No data available for this section [facility] Evaluation note No assessment inform ation available [facility] Work Phone: Evaluation note Diagnosis Examination of participant in clinical trial- Primary Examination of participant or control in clinical research Examination of participant in clinical trial documented in this encounter [facility] note* Diagnosis Examination of participant or control in clinical research- Primary Examination of participant in clinical trial documented in this encounter [facility] note* Diagnosis Research study patient- Primary documented in this encounter [facility] note* Diagnosis Examination of participant or control in clinical research Examination of participant in clinical trial documented in this encounter [facility] note* Diagnosis Research exam- Primary Examination of participant in clinical trial documented in this encounter [facility] note* Diagnosis Examination of participant in clinical trial- Primary documented in this encounter [facility] note* Diagnosis Examination of participant in clinical trial- Primary documented in this encounter [facility] note* Diagnosis Idiopathic gout, unspecified chronicity, unspecified site- Primary documented in this encounter [facility] note* Diagnosis Research study patient- Primary Idiopathic gout, unspecified chronicity, unspecified site documented in this encounter [facility] note* Diagnosis Examination of participant in clinical trial- Primary documented in this encounter [facility] note* Diagnosis Examination of participant or control in clinical research- Primary Examination of participant in clinical trial documented in this encounter [facility] note* Diagnosis Idiopathic gout, unspecified chronicity, unspecified site- Primary Research study [facility] Diagnosis Examination of participant in clinical trial- Primary documented in this encounter [facility] note* Diagnosis Research study patient- Primary documented in this encounter [facility] Summary Purpose Family History No Family History Records FoundNo Family History Records FoundNo Family History Records Found Advance Directives No Advanced Directives Records FoundNo Advanced Directives Records FoundNo Advanced Directives Records Found Chief Complaint and Reason for Visit Chief Complaint EORDER Additional Source Comments (unrecognized sect ion and content) No Status Records FoundNo Status Records FoundNo Status Records Found INFORMATION SOURCE (unrecogn ized section and content) DATE CREATED AUTHOR 08/29/2021 [facility] ([place]) DATE CREATED AUTHOR AUTHOR'S ORGANIZ ATION 08/08/2024 [facility] DATE CREATED AUTHOR AUTHOR'S ORGANIZ ATION 01/27/2025 [facility] [facility] Care Teams (unrecognized sec tion and content) Team Status: Active Member Role Status Dates Dr. Doron Sheldon MD Family Provider Active Dr. Doron Sheldon MD Primary Care Provider Activ e Team Status: Inactive Member Role Status Dates Dr. Doron Sheldon MD Primary Care Provider, Atte nding Provider Active Team Status: Active Member Role Status Dates Dr. Doron Sheldon MD Primary Care Provider, Attending Provider, Referring Provider Active Team Status: Inactive Member Role Status Dates Dr. Doron Sheldon MD Primary Care Provider, Attending Provider, Referring Provider Active Team Status: Active Member Role Status Dates Dr. Doron Sheldon MD Primary Care Provider, Atte nding Provider Active Goals (unrecognized section and content) Goals may be documented in a n alternate section Source Comments (unrecognize d section and content) In the event this informatio n is protected by the Federal Confidentiality of Alcohol and Drug Abuse Patient Records regulations: The Federal rules restrict any use of the information to criminally investigate or prosecute any alcohol or drug abuse patient.[facility] CenterIn the event this information is protected by the Federal Confidentiality of Alcohol and Drug Abuse Patient Records regulations: The Federal rules restrict any use of the information to criminally investigate or prosecute any alcohol or drug abuse patient.[facility] CenterIn the event this information is protected by the Federal Confidentiality of Alcohol and Drug Abuse Patient Records regulations: The Federal rules restrict any use of the information to criminally investigate or prosecute any alcohol or drug abuse patient.[facility] CenterIn the event this information is protected by the Federal Confidentiality of Alcohol and Drug Abuse Patient Records regulations: The Federal rules restrict any use of the information to criminally investigate or prosecute any alcohol or drug abuse patient.[facility] CenterIn the event this information is protected by the Federal Confidentiality of Alcohol and Drug Abuse Patient Records regulations: The Federal rules restrict any use of the information to criminally investigate or prosecute any alcohol or drug abuse patient.[facility] CenterIn the event this information is protected by the Federal Confidentiality of Alcohol and Drug Abuse Patient Records regulations: The Federal rules restrict any use of the information to criminally investigate or prosecute any alcohol or drug abuse patient.[facility] CenterIn the event this information is protected by the Federal Confidentiality of Alcohol and Drug Abuse Patient Records regulations: The Federal rules restrict any use of the information to criminally investigate or prosecute any alcohol or drug abuse patient.[facility] CenterIn the event this information is protected by the Federal Confidentiality of Alcohol and Drug Abuse Patient Records regulations: The Federal rules restrict any use of the information to criminally investigate or prosecute any alcohol or drug abuse patient.[facility] CenterIn the event this information is protected by the Federal Confidentiality of Alcohol and Drug Abuse Patient Records regulations: The Federal rules restrict any use of the information to criminally investigate or prosecute any alcohol or drug abuse patient.[facility] CenterIn the event this information is protected by the Federal Confidentiality of Alcohol and Drug Abuse Patient Records regulations: The Federal rules restrict any use of the information to criminally investigate or prosecute any alcohol or drug abuse patient.[facility] CenterIn the event this information is protected by the Federal Confidentiality of Alcohol and Drug Abuse Patient Records regulations: The Federal rules restrict any use of the information to criminally investigate or prosecute any alcohol or drug abuse patient.[facility] CenterIn the event this information is protected by the Federal Confidentiality of Alcohol and Drug Abuse Patient Records regulations: The Federal rules restrict any use of the information to criminally investigate or prosecute any alcohol or drug abuse patient.[facility] CenterIn the event this information is protected by the Federal Confidentiality of Alcohol and Drug Abuse Patient Records regulations: The Federal rules restrict any use of the information to criminally investigate or prosecute any alcohol or drug abuse patient.[facility] CenterIn the event this information is protected by the Federal Confidentiality of Alcohol and Drug Abuse Patient Records regulations: The Federal rules restrict any use of the information to criminally investigate or prosecute any alcohol or drug abuse patient.[facility] CenterIn the event this information is protected by the Federal Confidentiality of Alcohol and Drug Abuse Patient Records regulations: The Federal rules restrict any use of the information to criminally investigate or prosecute any alcohol or drug abuse patient.[facility] CenterIn the event this information is protected by the Federal Confidentiality of Alcohol and Drug Abuse Patient Records regulations: The Federal rules restrict any use of the information to criminally investigate or prosecute any alcohol or drug abuse patient.[facility] CenterIn the event this information is protected by the Federal Confidentiality of Alcohol and Drug Abuse Patient Records regulations: The Federal rules restrict any use of the information to criminally investigate or prosecute any alcohol or drug abuse patient.[facility] Reason for Visit (unrecogniz ed section and content) Reason Comments Research IRB #[id number] Reason Comments Radiology US Specialty Diagnoses / Procedures Referred By Contac t Referred To Contact [facility] Diagnoses Examination of participant or control in clinical research Procedures US KIDNEY/BLADDER US RETROPERITONEAL REAL TIME W/IMAGE COMPLETE Bean Rosas MD, PhD [address] [place] [address] Phone: tel: fax: [place] [phone] Referral ID Status Reason Start Date Expiration Date V isits Requested Visits Authorized [id number] Closed Auto-Generate d Referral 08/22/2024 09/21/2025 1 1 Reason Comments Research IRB#[id number] Reason Comments Received Outside Medical Records FOR RECORDS PERTAINING TO PATIENTS WHO ARE [...] BE BASED ON THE PRIMARY CLINICAL RECORDS. [facility]. provides no warranty or guarantee of the accuracy or completeness of information in this document.
== END | disposition home or self-care (01) ==
LOC: MFPLAB 16:28
PROVIDERS: PCP Family Medicine; Visit Provider Family Medicine
DX: R79.89 Other specified abnormal findings of blood chemistry (principal)
CPT/HCPCS: 36415; 80053; 84403; 85027

== ENCOUNTER → 2025-03-11 | Outpatient (CLI) | payer OTHER, SELFPAY | END | disposition home or self-care (01) | LOC: LABSPEC 16:41 | PROVIDERS: PCP Family Medicine; Visit Provider Family Medicine | DX: Z20.2 Contact with and (suspected) exposure to infections with a predominantly sexual mode of transmission (principal) | CPT/HCPCS: 87491; 87591 ==

== ENCOUNTER → 2025-04-10 | Outpatient (CLI) | payer OTHER, SELFPAY ==
[2025-04-10 18:50] LABS: HIV Nonreactive (Nonreactive); Syphilis Antibodies Nonreactive (Nonreactive)
== END | disposition home or self-care (01) ==
LOC: MFPLAB 15:49
PROVIDERS: PCP Family Medicine; Visit Provider Family Medicine
DX: Z20.2 Contact with and (suspected) exposure to infections with a predominantly sexual mode of transmission (principal)
CPT/HCPCS: 36415; 86695; 86696; 86703; 86780